=== PATIENT | female | born 1975 | race Caucasian/White ===

== ENCOUNTER → 2017-09-04 | Outpatient (REF) | payer OTHER ==
[2017-09-04 12:05] LABS: BASO # 0.1 10^3/uL (0.0-0.2); BASO % 0.9 % (0.0-1.0); EOS # 0.3 10^3/uL (0.0-0.50); EOS % 4.9 % (0.0-3.0); HEMATOCRIT 40.3 % (36.0-47.0); HEMOGLOBIN 13.3 g/dl (12.0-16.0); IMMATURE GRANULOCYTE % 0.4 % (0-0); LYMPH # 2.1 10^3/uL (1.5-4.5); LYMPH % 39.1 % (24.0-44.0); MEAN CORPUSCULAR HEMOGLOBIN 30.2 pg (27.0-33.0); MEAN CORPUSCULAR VOLUME 91.6 fl (80.0-96.0); MONO # 0.4 10^3/uL (0.0-0.8); MONO % 6.6 % (0.0-5.0); NEUTROPHILS # 2.6 10^3/uL (1.8-7.7); NEUTROPHILS % 48.1 % (36.0-66.0); PLATELET COUNT, AUTOMATED 194 10^3/uL (150-450); WHITE BLOOD COUNT 5.3 10^3/uL (4.0-10.0)
[2017-09-04 12:25] LABS: TOTAL 25(OH) VITAMIN D 15.5 NG/ML (30.0-100.0)
[2017-09-04 12:31] LABS: ALBUMIN 3.8 GM/DL (3.2-5.2); ALBUMIN/GLOBULIN RATIO 1.06 (1.00-1.93); ALKALINE PHOSPHATASE 47 U/L (45-117); ALT/SGPT 17 U/L (12-78); ANION GAP 7 MEQ/L (8-16); AST/SGOT 14 U/L (7-37); BILIRUBIN,TOTAL 0.4 MG/DL (0.2-1.0); BLOOD UREA NITROGEN 15 MG/DL (7-18); CALCIUM LEVEL 8.6 MG/DL (8.5-10.1); CARBON DIOXIDE LEVEL 29 MEQ/L (21-32); CHLORIDE LEVEL 105 MEQ/L (98-107); CHOLESTEROL LEVEL 214 MG/DL (<200); CHOLESTEROL RISK RATIO 3.194 (<5); CREATININE FOR GFR 0.62 MG/DL (0.55-1.02); GLOMERULAR FILTRATION RATE > 60.0 (>58); GLUCOSE, FASTING 86 MG/DL (70-105); HDL CHOLESTEROL 67 MG/DL (>40); LDL CHOLESTEROL 134.4 MG/DL (<100); NON-HDL-C 147 MG/DL; POTASSIUM SERUM 4.1 MEQ/L (3.5-5.1); SODIUM LEVEL 141 MEQ/L (136-145); THYROID STIMULATING HORMONE 0.932 uIU/ML (0.358-3.740); TOTAL PROTEIN 7.4 GM/DL (6.4-8.2); TRIGLYCERIDES LEVEL 63 MG/DL (<150)
== END ==
LOC: M LABDRAW1 10:29
DX: Z00.00 Encounter for general adult medical examination without abnormal findings (principal); E55.9 Vitamin D deficiency, unspecified
CPT/HCPCS: 84443

== ENCOUNTER → 2018-02-13 | Outpatient (CLI) | payer OTHER ==
[2018-02-13 13:30] LABS: HEMATOCRIT 42.7 % (36.0-47.0); HEMOGLOBIN 14.5 g/dl (12.0-15.5); MEAN CORPUSCULAR HEMOGLOBIN 31.5 pg (27.0-33.0); MEAN CORPUSCULAR VOLUME 92.8 fl (80.0-96.0); PLATELET COUNT, AUTOMATED 164 10^3/uL (150-450); RED CELL DISTRIBUTION WIDTH 12.5 % (11.5-14.5); WHITE BLOOD COUNT 8.4 10^3/uL (4.0-10.0)
[2018-02-13 14:02] LABS: FREE T4 0.96 NG/DL (0.76-1.46); THYROID STIMULATING HORMONE 0.888 uIU/ML (0.358-3.740)
== END ==
LOC: M SMT 09:11
DX: N92.0 Excessive and frequent menstruation with regular cycle (principal)
CPT/HCPCS: 84443

== ENCOUNTER → 2018-02-13 | Outpatient (REF) | payer OTHER ==
[2018-02-17 14:16] LABS: HPV HYBRID CAPTURE II Positive (Negative)
== END ==
LOC: M LAB REF 17:57
DX: Z12.4 Encounter for screening for malignant neoplasm of cervix (principal)

== ENCOUNTER → 2018-02-20 | Outpatient (CLI) | payer OTHER | LOC: M RAD 08:40 | DX: N92.0 Excessive and frequent menstruation with regular cycle (principal); R93.8 Abnormal findings on diagnostic imaging of other specified body structures | CPT/HCPCS: 76856 ==

== ENCOUNTER → 2018-03-19 | Outpatient (REF) | payer OTHER | LOC: M LAB REF 18:44 | DX: N92.0 Excessive and frequent menstruation with regular cycle (principal) ==

== ENCOUNTER 2018-04-29 09:52 | Day surgery (SDC) | payer OTHER ==
[~2018-04-29 09:52] MED LIST: GLYCOPYRROLATE INJ 0.2 MG/ML 2 ML VIAL As Ordered; HYDROmorphone HCL 2 MG/ML 1ML VIAL (J1170) As Ordered; KETOROLAC 60 MG/2 ML VIAL (J1885) As Ordered; LIDOCAINE 1% MDV 20ML VIAL SQ; LIDOCAINE 2% INJ 100 MG/5 ML SDV (FOR ANES.) As Ordered; MIDAZOLAM INJ 2 MG/2 ML VIAL (J2250) As Ordered; NEOSTIGMINE 10 MG/10 ML VIAL (J2710) As Ordered; ONDANSETRON 4MG/2ML VIAL (J2405) As Ordered; PROPOFOL 200 MG/20 ML VIAL As Ordered; ROCURONIUM BROMIDE 50 MG/5 ML VIAL As Ordered; dexameTHASONE 4 MG/ML 1ML VIAL (J1100) As Ordered; fentaNYL 100 MCG/2 ML INJECTION (J3010) As Ordered
[2018-04-29 10:19] LABS: HEMATOCRIT 42.6 % (36.0-47.0); HEMOGLOBIN 14.2 g/dl (12.0-15.5); MEAN CORPUSCULAR HGB CONC 33.3 g/dl (32.0-36.5); PLATELET COUNT, AUTOMATED 181 10^3/uL (150-450); RED BLOOD COUNT 4.58 10^6/uL (4.00-5.40); RED CELL DISTRIBUTION WIDTH 12.4 % (11.5-14.5); WHITE BLOOD COUNT 5.3 10^3/uL (4.0-10.0)
[2018-04-29 10:27] LABS: CONTROL LINE HCG INT CTR LINE PRESENT; HCG, SERUM QUALITATIVE NEGATIVE (NEGATIVE)
[2018-04-29] MEDS: LR 1,000 ML IV ×2 (10:35→14:00)
[2018-04-29] MEDS ORDERED: PHENYLephrine HCL 500 MCG/5 ML (100MCG/ML) SYRINGE (J2370) As Ordered (11:47)
[2018-04-29] MEDS ORDERED: ePHEDrine SULFATE 25 MG/5 ML(5MG/ML) SYRINGE As Ordered (11:52)
[2018-04-29] MEDS ORDERED: ROCURONIUM BROMIDE 50 MG/5 ML VIAL As Ordered (12:02)
[2018-04-29] MEDS: BUPIVACAINE HCL 0.25% 30 ML VIAL As Ordered (12:45)
[2018-04-29] MEDS ORDERED: zolPIDEM TARTRATE 5 MG TAB PO (14:00)
[2018-04-29] MEDS ORDERED: MORPHINE 4 MG/ML 1ML VIAL/SYRINGE (J2270) IV (14:00)
[2018-04-29] MEDS ORDERED: PERCOCET 5MG/325MG TAB PO (14:00)
[2018-04-29] MEDS ORDERED: fentaNYL 100 MCG/2 ML INJECTION (J3010) IV (14:00)
[2018-04-29] MEDS ORDERED: ONDANSETRON 4MG/2ML VIAL (J2405) IV (14:00)
[2018-04-29] MEDS: PROMETHAZINE INJ 25 MG/ML VIAL (J2550) IV (15:36)
[2018-04-29] MEDS: KETOROLAC 30 MG/ML VIAL (J1885) IV ×2 (17:26→22:57)
[2018-04-29] MEDS: PERCOCET 5MG/325MG TAB PO (21:34)
[2018-04-30] MEDS: PERCOCET 5MG/325MG TAB PO (03:23)
[2018-04-30] MEDS: KETOROLAC 30 MG/ML VIAL (J1885) IV (04:51)
[2018-04-30 07:50] LABS: HEMATOCRIT 33.9 % (36.0-47.0); MEAN CORPUSCULAR HGB CONC 33.3 g/dl (32.0-36.5); MEAN CORPUSCULAR VOLUME 93.1 fl (80.0-96.0); PLATELET COUNT, AUTOMATED 155 10^3/uL (150-450); RED BLOOD COUNT 3.64 10^6/uL (4.00-5.40); RED CELL DISTRIBUTION WIDTH 12.4 % (11.5-14.5); WHITE BLOOD COUNT 9.9 10^3/uL (4.0-10.0)
[2018-04-30 07:58] LABS: HEMOGLOBIN 11.3 g/dl (12.0-15.5)
== END 2018-04-30 08:55 | disposition home or self-care (01) ==
LOC: M SDC 09:52 → M PED 15:15
DX: N93.9 Abnormal uterine and vaginal bleeding, unspecified (principal); D25.9 Leiomyoma of uterus, unspecified; K58.9 Irritable bowel syndrome, unspecified; L40.9 Psoriasis, unspecified; J30.9 Allergic rhinitis, unspecified; Z88.0 Allergy status to penicillin
CPT/HCPCS: 58571

== ENCOUNTER → 2019-04-20 | Outpatient (REF) | payer OTHER ==
[~2019-04-20] MED LIST changes: -GLYCOPYRROLATE INJ 0.2 MG/ML 2 ML VIAL As Ordered; -HYDROmorphone HCL 2 MG/ML 1ML VIAL (J1170) As Ordered; -KETOROLAC 60 MG/2 ML VIAL (J1885) As Ordered; -LIDOCAINE 1% MDV 20ML VIAL SQ; -LIDOCAINE 2% INJ 100 MG/5 ML SDV (FOR ANES.) As Ordered; -MIDAZOLAM INJ 2 MG/2 ML VIAL (J2250) As Ordered; -NEOSTIGMINE 10 MG/10 ML VIAL (J2710) As Ordered; +NEXI40CA PO; -ONDANSETRON 4MG/2ML VIAL (J2405) As Ordered; +PERCOCET PO; -PROPOFOL 200 MG/20 ML VIAL As Ordered; -ROCURONIUM BROMIDE 50 MG/5 ML VIAL As Ordered; +VITA100066 PO; -dexameTHASONE 4 MG/ML 1ML VIAL (J1100) As Ordered; -fentaNYL 100 MCG/2 ML INJECTION (J3010) As Ordered
== END ==
LOC: M SFHCPLAZ 19:37
PROVIDERS: ATTEND Dermatology
DX: D22.39 Melanocytic nevi of other parts of face (principal)

== ENCOUNTER → 2020-03-19 | Outpatient (CLI) | payer OTHER ==
[~2020-03-19] MED LIST changes: +FAMO1TAB11 PO; +MELO15TA28 PO
== END ==
LOC: M LABSMTC 09:31
PROVIDERS: ATTEND Anesthesiology
DX: Z03.818 Encounter for observation for suspected exposure to other biological agents ruled out (principal); Z11.59 Encounter for screening for other viral diseases

== ENCOUNTER → 2020-09-07 | Outpatient (CLI) | payer OTHER ==
[2020-09-07 09:55] LABS: ALBUMIN 3.9 GM/DL (3.2-5.2); ALT/SGPT 16 U/L (12-78); BILIRUBIN,TOTAL 0.4 MG/DL (0.2-1.0); BLOOD UREA NITROGEN 12 MG/DL (7-18); CARBON DIOXIDE LEVEL 25 MEQ/L (21-32); CHLORIDE LEVEL 107 MEQ/L (98-107); CHOLESTEROL LEVEL 238 MG/DL (<200); CHOLESTEROL RISK RATIO 3.901 (<5); CREATININE FOR GFR 0.74 MG/DL (0.55-1.30); FREE T4 0.95 NG/DL (0.76-1.46); GLOMERULAR FILTRATION RATE > 60.0 (>58); GLUCOSE, FASTING 88 MG/DL (70-100); HDL CHOLESTEROL 61 MG/DL (>40); LDL CHOLESTEROL 167 MG/DL (<100); NON-HDL-C 177 MG/DL; SODIUM LEVEL 136 MEQ/L (136-145); THYROID STIMULATING HORMONE 0.994 uIU/ML (0.358-3.740); TOTAL PROTEIN 7.3 GM/DL (6.4-8.2); TRIGLYCERIDES LEVEL 52 MG/DL (<150)
== END ==
LOC: M LAB 08:47
PROVIDERS: ATTEND Nurse Practitioner Family
DX: Z00.00 Encounter for general adult medical examination without abnormal findings (principal)

== ENCOUNTER → 2020-10-07 | Outpatient (CLI) | payer OTHER | LOC: M LABSMTC 10:11 | PROVIDERS: ATTEND Anesthesiology | DX: Z01.812 Encounter for preprocedural laboratory examination (principal); Z20.822 Contact with and (suspected) exposure to COVID-19 ==

== ENCOUNTER 2020-10-12 06:16 | Observation (INO) | payer OTHER ==
[~2020-10-12] VITALS: Ht 157.5 cm; Wt 72.0 kg
[2020-10-12] VITALS (7 sets, daily range): BP systolic 109–122; BP diastolic 66–78
[~2020-10-12 06:16] MED LIST changes: +HEPARIN SOD (PORCINE) 5000UNITS/ML 1ML VIAL/SYRINGE SQ ONE; +LR 1,000 ML IV ONE; +ceFAZolin SOD 1 GM in D5W MINI-BAG PLUS 50 ML IV ONE
--- OUTSIDE RECORDS SUMMARY | 2020-10-12 06:21 | CCD | Continuity of Care Document ---
Author Author Lindsay CONTE [facility] Organization Unknown Address [address] [address] Phone [phone] Care Team Providers Care Director Pharmacovigilance Name Role Phone Katiana Gastro - Gastroenterology AUTM Rubén Gutiérrez MD AUTM [phone] Esme Barrientos MD AUTM Tammi Fair MD AUTM [phone] Zunilda Robin DO AUTM [phone] Problems Active Problems Provider Date Atopic dermatitis Leora Polk M.D. Onset: 01/26/20 11 Social History Type Date Description Comments Sex Unknown Tobacco Use Start: Unknown Never Smoked Cigarettes Tobacco Use Start: Unknown Never Used Smokeless Tobacco ETOH Use Occasionally consumes alcohol Tobacco Use Start: Unknown Patient has never smoked Recreational Drug Use Denies Drug Use Smoking Status Reviewed: 08/21/20 Patient has never smoked Exercise Type/Frequency Exercises regularly Tattoo/Piercing Pierced ears Tattoo/Piercing Tattoo Sun Exposure Moderate amount of sun exposure Sun Exposure Uses sunscreen Seat Belt/Car Seat Always uses seat belt Bike Helmet Always Smoke Alarms Yes Smoke Alarms Carbon Monoxide Detector: Yes Allergies, Adverse Reactions, Alerts Active Allergies Reaction Severity Comments Date NKDA 09/22/2008 Environmental 11/12/2017 Medications Active Medications SIG Qnty Indications Ordering Provide r Date Cyclobenzaprine HCL 10mg Tablets 1/2 to 1 by mouth three times a day as needed 30tabs M54.2 Pranav Conte FNP 08/21/2020 Famotidine 20mg Tablets 1 by mouth twice a day 180tabs Nery Conte FNP 12/01/2019 Immunizations CPT Code Status Date Vaccine Lot # [id number] Given 08/18/2017 Boostrix (Tdap) Tetnus, Diphtheria Toxoids & Acellular Pertussis TB2R2 13953 Given 09/22/2008 MMR [id number] Vital Signs Date Vital Result Comment 08/21/2020 8:32am BP Systolic 127 mmHg BP Diastolic 78 mmHg Heart Rate 97 /min Body Temperature 98.1 F Respiratory Rate 16 /min Height 61.75 inches 5'1.75" Weight 162.38 lb O2 % BldC Oximetry 98 % Peak Expiratory Flow Rate 344 Estimated Peak Flow Rate [place] Body Weight 105 lb BMI (Body Mass Index) 29.9 kg/m2 04/14/2020 12:02pm BP Systolic 142 mmHg BP Diastolic 92 mmHg BP Systolic Recheck 126 mmHg BP Diastolic Recheck 84 mmHg Heart Rate 79 /min Body Temperature 98.8 F Respiratory Rate 16 /min Height 61.75 inches 5'1.75" Weight 152.75 lb O2 % BldC Oximetry 98 % Peak Expiratory Flow Rate 346 Estimated Peak Flow Rate [place] Body Weight 105 lb BMI (Body Mass Index) 28.2 kg/m2 Results Description No Information Available Procedures Date Code Description Status 09/02/2019 [id number] Mammogram Completed Medical Devices Description No Information Available Encounters Type Date Location Provider Dx Diagnosis Office Visit 04/14/2020 11:45a Main Office Nery Conte FNP R14.0 Abdominal distension (gaseous) M54.2 Cervicalgia Assessments Date Code Description Provider 08/21/2020 Z00.00 Encounter for genera l adult medical examination without abnormal findings Nery Conte FNP 08/21/2020 R14.0 Abdominal distension (gaseous) P Nery young FNP 08/21/2020 K21.9 Gastro-esophageal reflux disease without esophagitis Nery Conte FNP 08/21/2020 M54.2 Cervicalgia Nery Conte FNP 04/14/2020 R14.0 Abdominal distension (gaseous) P Nery young FNP 04/14/2020 M54.2 Cervicalgia Nery Conte FNP Plan of Treatment 08/21/2020 - Nery Conte FNP* Z00.00 Encounter for general adult medical examination without abnormal findings* New Labs:* Comprehensive Metabolic Profil, Scheduled: 08/21/20 * Lipid Panel, Scheduled: 08/21/20 * TSH And T4 Free (Terry), Scheduled: 08/21/20 * Follow up:* 6 months * R14.0 Abdominal distension (gaseous)* Comments:* refer to Dr. Hallman * K21.9 Gastro-esophageal reflux disease without esophagitis * M54.2 Cervicalgia* New Medication:* Cyclobenzaprine HCL 10 mg - 1/2 to 1 by mouth three times a day as needed Functional Status Functional Condition Comment Date Status Glasses reading Active Independent with all ADL's Activ e Independent with all IADL's Acti ve Mental Status Mental Condition Comment Date Status None Active Referrals Refer to Reason for Referral Status Appt Date [facility] refer for breast re duction per recommendation of spinal specialist Closed [address] [place] [address] [phone] Tammi Fair MD Refer for question of hormone imbalance causin g GI sx Closed [facility] [address] [address] [phone] Zunilda Robin, refer for breast reduction p er recommendation of spinal specialist Closed 05/03/2020 [facility] Plastic Surgery [address] [place] [address] [phone]
--- OUTSIDE RECORDS SUMMARY | 2020-10-12 06:21 | CCD | Continuity of Care Document ---
Author Author Lindsay CONTE Organization Unknown Address [address] [place] [address] Phone [phone] Care Team Providers Care Steak Sauce Maker Name Role Phone Katiana Gastro - Gastroenterology AUTM Rubén Gutiérrez MD AUTM [phone] Esme Barrientos MD AUTM Tammi Fair MD AUTM [phone] Zunilda Robin DO AUTM [phone] [facility] AUTM [phone] Problems Active Problems Provider Date Atopic dermatitis [...] by mouth twice a day 180tabs Nery Conte, [facility] 12/01/2019 Immunizations CPT Code Status Date Vaccine Lot # [id number] Given 08/18/2017 Boostrix (Tdap) Tetnus, Diphtheria Toxoids & Acellular Pertussis TB2R2 [id number] Given 09/22/2008 MMR [id number] Vital Signs Date Vital Result Comment 08/21/2020 8:32am BP Systolic 127 mmHg BP Diastolic 78 mmHg Heart Rate 97 /min Body Temperature 98.1 F Respiratory Rate 16 /min Height 61.75 inches 5'1.75" Weight 162.38 lb O2 % BldC Oximetry 98 % Peak Expiratory Flow Rate 344 Estimated Peak Flow Rate [place] Body Weight 105 lb BMI (Body Mass [...] Flow Rate 346 Estimated Peak Flow Rate [place] Body Weight 105 lb BMI (Body Mass Index) 28.2 kg/m2 Results Test Acquired Date Facility Test Result H/L Range Note Comprehensive Metabolic Profil 09/07/2020 [phone] Glucose, Fasting 88 mg/dL Normal 70-100 Blood Urea Nitrogen 12 mg/dL Normal 7-18 Creatinine For GFR 0.74 mg/dL Normal 0.55-1.30 Glomerular Filtration Rate > 60.0 Normal >58 1 Sodium Level 136 mEq/L Normal 136-145 Potassium Serum 5.0 mEq/L Normal 3.5-5.1 Chloride Level 107 mEq/L Normal 98-107 Carbon Dioxide Level 25 mEq/L Normal 21-32 Anion Gap 4 mEq/L Low 8-16 Calcium Level 9.0 mg/dL Normal 8.5-10.1 Ast/Sgot 15 U/L Normal 7-37 Alt/SGPT 16 U/L Normal 12-78 Alkaline Phosphatase 50 U/L Normal 45-117 Bilirubin,Total 0.4 mg/dL Normal 0.2-1.0 Total Protein 7.3 GM/DL Normal 6.4-8.2 Albumin 3.9 GM/DL Normal 3.2-5.2 Albumin/Globulin Ratio 1.1 Low 1.2-2.2 Lipid Panel 09/07/2020 [facility] nter [phone] Triglycerides Level 52 mg/dL Normal <150 Cholesterol Level 238 mg/dL High <200 HDL Cholesterol 61 mg/dL Normal >40 LDL Cholesterol 167 mg/dL High <100 Non-HDL-C 177 mg/dL Normal Cholesterol Risk Ratio 3.901 Normal <5 FT4&TSH Panel 09/07/2020 [facility] nter [phone] Thyroid Stimulating Hormone 0.994 uIU/ML Normal 0. 358-3.740 Free T4 0.95 ng/dL Normal 0.76-1.46 1 Units are mL/min/1.73 m2 Chronic Kidney Disease Staging per NKF: Stage I & II GFR >=60 Normal to Mildly Decreased Stage III GFR 30-59 Moderately Decreased Stage IV GFR 15-29 Severely Decreased Stage V GFR <15 Very Little GFR Left ESRD GFR <[address] TEAM [employer]BER Procedures Date Code Description Status 09/02/2019 [id number] Mammogram Completed Medical Devices Description No Information Available Encounters Type Date Location Provider Dx Diagnosis Office Visit 08/21/2020 8:15a Main Office Nery Conte FNP Z00.0 0 Encntr for general adult medical exam w/o abnormal findings R14.0 Abdominal distension (gaseou s) K21.9 Gastro-esophageal reflux dis ease without esophagitis M54.2 Cervicalgia Office Visit 04/14/2020 11:45a Main Office Nery Conte FNP R14.0 Abdominal distension (gaseous) M54.2 Cervicalgia Assessments Date Code Description Provider 08/21/2020 Z00.00 Encounter for genera l adult medical examination without abnormal findings Nery Conte FNP 08/21/2020 R14.0 Abdominal distension (gaseous) Nery Cedeño FNP 08/21/2020 K21.9 Gastro-esophageal reflux disease without esophagitis Nery Conte FNP 08/21/2020 M54.2 Cervicalgia Nery Conte FNP 04/14/2020 R14.0 Abdominal distension (gaseous) Nery Cedeño FNP 04/14/2020 M54.2 Cervicalgia Nery Conte FNP Plan of Treatment Future Appointment(s):* 02/21/2021 8:15 am - Nery Conte FNP at Main Office 08/21/2020 - Nery Conte FNP* Z00.00 Encounter for general adult medical examination without abnormal findings* Comments:* Health maintenance up to date. Overall doing well. RANDAL/PHQ 9/CAGE questionnaire reviewed. Discussed healthy lifestyle choices. * Follow up:* 6 months * R14.0 Abdominal distension (gaseous)* Comments:* refer to Dr. Hallman * Referral:* [facility] * K21.9 Gastro-esophageal reflux disease without esophagitis* Comments:* controlled on famotidine * M54.2 Cervicalgia* New Medication:* Cyclobenzaprine HCL 10 mg - 1/2 to 1 by mouth three times a day as needed * Comments:* add muscle relaxer as needed Functional Status Functional Condition Comment Date Status Glasses reading Active Independent with all ADL's Activ e Independent with all IADL's Acti ve Mental Status Mental Condition Comment Date Status None Active Referrals Refer to Reason for Referral Status Appt Date [facility] Concern [place] [address] [place] [address] [phone] [facility] refer for breast re duction per recommendation of spinal specialist Closed [address] [place] [address] [phone] Tammi Fair MD Refer for question of hormone imbalance causin g GI sx Closed [facility] [address] [facility] [address] [phone] Zunilda Robin DO refer for breast reduction p er recommendation of spinal specialist Closed 05/03/2020 [facility] Plastic Surgery [address] [place] [address] [phone]
--- OUTSIDE RECORDS SUMMARY | 2020-10-12 06:21 | CCD | Continuity of Care Document ---
Author Author Lindsay CONTE [facility] Organization Unknown Address [address] [place] [address] Phone [phone] Care Team Providers Care Medical Coding Specialist Name Role Phone Katiana Gastro - Gastroenterology AUTM Rubén Gutiérrez MD AUTM [phone] Esme Barrientos MD AUTM [phone] Tammi Fair MD AUTM [phone] Zunilda Robin DO AUTM [phone] [facility] AUTM [phone] Problems Active Problems Provider Date Gastroesophageal reflux disease Nery Conte FNP Onset: 10/02/2020 Social History Type Date Description Comments Sex Unknown Tobacco Use Start: Unknown Never Smoked Cigarettes Tobacco Use Start: Unknown Never Used Smokeless Tobacco ETOH Use Occasionally consumes alcohol Tobacco Use Start: Unknown Patient has never smoked Recreational Drug Use Denies Drug Use Smoking Status Reviewed: 10/02/20 Patient has never smoked Exercise Type/Frequency Exercises [...] 08/21/2020 Famotidine 20mg Tablets 1 by mouth once a day 180tabs JacksonNery kennedy, [facility] 12/01/2019 Immunizations CPT Code Status Date Vaccine Lot # [id number] Given 08/18/2017 Boostrix (Tdap) Tetnus, Diphtheria Toxoids & Acellular Pertussis TB2R2 57519 Given 09/22/2008 MMR [id number] Vital Signs Date Vital Result Comment 10/02/2020 4:13pm BP Systolic 119 mmHg BP Diastolic 80 mmHg Heart Rate 77 /min Body Temperature 97.7 F Respiratory Rate 16 /min Height 61.75 inches 5'1.75" Weight 160.25 lb O2 % BldC Oximetry 99 % Peak Expiratory Flow Rate 344 Estimated Peak Flow Rate [place] Body Weight 105 lb BMI (Body Mass Index) 29.5 kg/m2 08/21/2020 8:32am BP Systolic 127 mmHg BP Diastolic 78 mmHg Heart Rate 97 /min Body Temperature 98.1 F Respiratory Rate 16 /min Height 61.75 inches 5'1.75" Weight 162.38 lb O2 % BldC Oximetry 98 % Peak Expiratory Flow Rate 344 Estimated Peak Flow Rate [place] Body Weight 105 lb BMI (Body Mass Index) 29.9 kg/m2 Results Test Acquired Date Facility Test Result H/L Range Note CBC With Differential 10/04/[address] [facility] [address] [place] [address] [phone] WBC 5.8 x10E3/uL 3.4-10.8 1, 2 RBC 4.51 x10E6/uL 3.77-5.28 3 Hemoglobin 13.9 g/dL 11.1-15.9 4 Hematocrit 40.8 % 34.0-46.6 5 MCV 91 fL 79-97 6 MCH 30.8 pg 26.6-33.0 7 MCHC 34.1 g/dL 31.5-35.7 8 RDW 12.1 % 11.7-15.4 9 Platelets 164 x10E3/uL 150-450 10 Neutrophils 50 % Not Estab. 11 Lymphs 36 % Not Estab. 12 Monocytes 9 % Not Estab. 13 Eos 4 % Not Estab. 14 Basos 1 % Not Estab. 15 Immature Cells TNP 16 Neutrophils (Absolute) 3.0 x10E3/uL 1.4-7.0 17 Lymphs (Absolute) 2.1 x10E3/uL 0.7-3.1 18 Monocytes(Absolute) 0.5 x10E3/uL 0.1-0.9 19 Eos (Absolute) 0.2 x10E3/uL 0.0-0.4 20 Baso (Absolute) 0.0 x10E3/uL 0.0-0.2 21 Immature Granulocytes 0 % Not Estab. 22 Immature Grans (Abs) 0.0 x10E3/uL 0.0-0.1 23 NRBC TNP 24 Hematology Comments: TNP 25 Urine Culture 10/04/[address] [facility] [address] [place] [address] [phone] Urine Culture, Routine Final report 26 Result 1 No growth 27 Laboratory test finding 10/04/[address] [facility] [address] [place] [address] [phone] Lor Ling CMP14 Default See Comment: 28 Metabolic Panel (14), Comprehensive 10/04/2020 [facility] [address] [place], [place] [address] [phone] Glucose 80 mg/dL 65-99 29 BUN 9 mg/dL 6-24 30 Creatinine 0.77 mg/dL 0.57-1.00 31 eGFR If NonAfricn Am 95 mL/min/1.73 >59 32 eGFR If Africn Am 109 mL/min/1.73 >59 33 BUN/Creatinine Ratio 12 9-23 34 Sodium 137 mmol/L 134-144 35 Potassium 4.3 mmol/L 3.5-5.2 36 Chloride 102 mmol/L 96-106 37 Carbon Dioxide, Total 23 mmol/L 20-29 38 Calcium 9.3 mg/dL 8.7-10.2 39 Protein, Total 7.3 g/dL 6.0-8.5 40 Albumin 4.3 g/dL 3.8-4.8 41 Globulin, Total 3.0 g/dL 1.5-4.5 42 A/G Ratio 1.4 1.2-2.2 43 Bilirubin, Total 0.4 mg/dL 0.0-1.2 44 Alkaline Phosphatase 51 IU/L 39-117 45 Ast (Sgot) 15 IU/L 0-40 46 Alt (SGPT) 9 IU/L 0-32 47 Urinalysis, Routine With Micro On Pos 10/04/2020 [facility] [address] [place], [place] [address] [phone] Specific [place] 1.008 1.005-1.030 48 pH 7.5 5.0-7.5 49 Urine-Color Yellow Yellow 50 Appearance Clear Clear 51 WBC Esterase Negative Negative 52 Protein Negative Negative/Trace 53 Glucose Negative Negative 54 Ketones Negative Negative 55 Occult Blood Negative Negative 56 Bilirubin Negative Negative 57 Urobilinogen,Semi-Qn 0.2 mg/dL 0.2-1.0 58 Nitrite, Urine Negative Negative 59 Microscopic Examination See Comment: 60 Order 10/02/2020 [facility] [address] [place] [address] [phone] Electrocardiogram <pending> Comprehensive Metabolic Profil 09/07/2020 [facility] [phone] Glucose, Fasting 88 mg/dL Normal 70-100 Blood Urea Nitrogen 12 mg/dL Normal 7-18 Creatinine For GFR 0.74 mg/dL Normal 0.55-1.30 Glomerular Filtration Rate > 60.0 Normal >58 6 1 Sodium Level 136 mEq/L Normal 136-145 [...] Ratio 1.1 Low 1.2-2.2 Lipid Panel 09/07/2020 [facility] nter [phone] Triglycerides Level 52 mg/dL Normal <150 Cholesterol Level 238 mg/dL High <200 HDL Cholesterol 61 mg/dL Normal >40 LDL Cholesterol 167 mg/dL High <100 Non-HDL-C 177 mg/dL Normal Cholesterol Risk Ratio 3.901 Normal <5 FT4&TSH Panel 09/07/2020 [facility] nter [phone] Thyroid Stimulating Hormone 0.994 uIU/ML Normal 0. 358-3.740 Free T4 0.95 ng/dL Normal 0.76-1.46 1 A courtesy copy of this repo rt has been sent to [phone], the patient SRC:UC 2 Source of Specimen: UC 3 Source of Specimen: UC 4 Source of Specimen: UC 5 Source of Specimen: UC 6 Source of Specimen: UC 7 Source of Specimen: UC 8 Source of Specimen: UC 9 Source of Specimen: UC 10 Source of Specimen: UC 11 Source of Specimen: UC 12 Source of Specimen: UC 13 Source of Specimen: UC 14 Source of Specimen: UC 15 Source of Specimen: UC 16 Source of Specimen: UC 17 Source of Specimen: UC 18 Source of Specimen: UC 19 Source of Specimen: UC 20 Source of Specimen: UC 21 Source of Specimen: UC 22 Source of Specimen: UC 23 Source of Specimen: UC 24 Source of Specimen: UC 25 Source of Specimen: UC 26 Source of Specimen: UC 27 Source of Specimen: UC 28 Source of Specimen: UC A hand-written panel/profile was received from your office. In accordance with the [facility] Ambiguous Test Code Policy dated March 2003, we have completed your order by us ing the closest currently or formerly recognized AMA panel. We have assigned Comprehensive Metabolic Panel (14), Test Code #668347 to this request. If this is not the testing you wished to receive on this specimen, please contact the [facility] Client Inquiry/Technical Services Department to clarify the test order. We appreciate your business. 29 Source of Specimen: UC 30 Source of Specimen: UC 31 Source of Specimen: UC 32 Source of Specimen: UC 33 Source of Specimen: UC 34 Source of Specimen: UC 35 Source of Specimen: UC 36 Source of Specimen: UC 37 Source of Specimen: UC 38 Source of Specimen: UC 39 Source of Specimen: UC 40 Source of Specimen: UC 41 Source of Specimen: UC 42 Source of Specimen: UC 43 Source of Specimen: UC 44 Source of Specimen: UC 45 Source of Specimen: UC 46 Source of Specimen: UC 47 Source of Specimen: UC 48 Source of Specimen: UC 49 Source of Specimen: UC 50 Source of Specimen: UC 51 Source of Specimen: UC 52 Source of Specimen: UC 53 Source of Specimen: UC 54 Source of Specimen: UC 55 Source of Specimen: UC 56 Source of Specimen: UC 57 Source of Specimen: UC 58 Source of Specimen: UC 59 Source of Specimen: UC 60 Source of Specimen: UC Microscopic follows if indicated. 61 Units are mL/min/1.73 m2 Chronic Kidney Disease Staging per NKF: Stage I & II GFR >=60 Normal to Mildly Decreased Stage III GFR 30-59 Moderately Decreased Stage IV GFR 15-29 Severely Decreased Stage V GFR <15 Very Little GFR Left ESRD GFR <15 on [facility] Procedures Date Code Description Status 10/02/2020 [id number] EKG Interpretation & Report Comp leted 09/25/2020 [id number] Mammogram Completed Medical Devices Description No Information Available Encounters Type Date Location Provider Dx Diagnosis Office Visit 10/02/2020 4:00p Main Office Nery Conte FNP Z01.8 18 Encounter for other preprocedural examination K21.9 Gastro-esophageal reflux dis ease without esophagitis N62 Hypertrophy of breast Office Visit 08/21/2020 8:15a Main Office Nery Conte CHAIN MAK[employer] Z00.0 0 Encntr for general adult medical exam w/o abnormal findings R14.0 Abdominal distension (gaseou s) K21.9 Gastro-esophageal reflux dis ease without esophagitis M54.2 Cervicalgia Office Visit 04/14/2020 11:45a Main Office Nery Conte, [employer] R14.0 Abdominal distension (gaseous) M54.2 Cervicalgia Assessments Date Code Description Provider 10/02/2020 Z01.818 Encounter for other preprocedura l examination Nery Conte [employer] 10/02/2020 K21.9 Gastro-esophageal reflux disease without esophagitis Nery Conte, CH[employer] MA[employer] 10/02/2020 N62 Hypertrophy of breast Nery Conte, [employer] 08/21/2020 Z00.00 Encounter for genera l adult medical examination without abnormal findings Nery Conte, CHAIN MAK[employer] 08/21/2020 R14.0 Abdominal distension (gaseous) P Nery young, CHAIN MAKER HAND 08/21/2020 K21.9 Gastro-esophageal reflux disease without esophagitis Nery Conte CHAIN [employer] 08/21/2020 M54.2 Cervicalgia PleNery kennedy FNP 04/14/2020 R14.0 Abdominal distension (gaseous) P Nery young FNP 04/14/2020 M54.2 Cervicalgia Nery Conte FNP Plan of Treatment Future Appointment(s):* 02/21/2021 8:15 am - Nery Conte FNP at Main Office 10/02/2020 - Nery Conte FNP* Z01.818 Encounter for other preprocedural examination* Comments:* EKG done shows NSR with no acute changesPatient is medically optimized for the planned procedure pending lab results 10/06/20 - labs reviewed and are within normal limits, Patient is medically optimized for the planned procedure. * K21.9 Gastro-esophageal reflux disease without esophagitis* Comments:* controlled on famotidine * N62 Hypertrophy of breast Functional Status Functional Condition Comment Date Status Glasses reading Active Independent with all ADL's Activ e Independent with all IADL's Acti ve Mental Status Mental Condition Comment Date Status None Active Referrals Refer to Dr Reason for Referral Status Appt Date [facility] Concern for food allergies Schedule d 10/25/[address] [place] [address] [phone] [facility] refer for breast re duction per recommendation of spinal specialist Closed [address] [place] [address] [phone] Tammi Fair MD Refer for question of hormone imbalance causin g GI sx Closed [facility] [address] [facility] [address] [phone] Zunilda Robin, refer for breast reduction p er recommendation of spinal specialist Closed 05/03/2020 [facility] Plastic Surgery [address] [place] [address] [phone]
--- OUTSIDE RECORDS SUMMARY | 2020-10-12 06:21 | CCD | Continuity of Care Document ---
Author Author Lindsay CONTE Organization Unknown Address [address] [address] Phone [phone] Care Team Providers Care Manager Managed Care Name Role Phone Katiana Gastro - Gastroenterology AUTM Rubén Gutiérrez MD AUTM [phone] Esme Barrientos MD AUTM Tammi Fair MD AUTM [phone] Zunilda Robin DO AUTM [phone] [facility] AUTM [phone] Problems Active Problems Provider Date Atopic dermatitis [...] CPT Code Status Date Vaccine Lot # [id number] Given 08/18/2017 Boostrix (Tdap) Tetnus, Diphtheria Toxoids & Acellular Pertussis TB2R2 [id number] Given 09/22/2008 MMR [id number] Vital Signs Date Vital Result Comment 08/21/2020 8:32am BP Systolic 127 mmHg BP Diastolic 78 mmHg Heart Rate 97 /min Body Temperature 98.1 F Respiratory Rate 16 /min Height 61.75 inches 5'1.75" Weight 162.38 lb O2 % BldC Oximetry 98 % Peak Expiratory Flow Rate 344 Estimated Peak Flow Rate [place] Body Weight 105 lb BMI (Body Mass [...] Flow Rate 346 Estimated Peak Flow Rate [place] Body Weight 105 lb BMI (Body Mass Index) 28.2 kg/m2 Results Description No Information Available Procedures Date Code Description Status 09/02/2019 [id number] Mammogram Completed Medical Devices Description No Information [...] FNP 04/14/2020 R14.0 Abdominal distension (gaseous) P hectorNery FNP 04/14/2020 M54.2 Cervicalgia Nery Conte FNP Plan of Treatment Future Appointment(s):* 02/21/2021 8:15 am - Nery Conte FNP at Main Office 08/21/2020 - Nery Conte FNP* Z00.00 Encounter for general adult medical examination without abnormal findings* New Labs:* Comprehensive Metabolic Profil, Scheduled: 08/21/20 * Lipid Panel, Scheduled: 08/21/20 * TSH And T4 Free (Terry), Scheduled: 08/21/20 * Comments:* Health maintenance up to date. Overall [...] And Allergy Concern for food allergies [place] [address] [place] [address] [phone] [facility] refer for breast re duction per recommendation of spinal specialist Closed [address] [place] [address] [phone] Tammi Fair MD Refer for question of hormone imbalance margothin g GI sx Closed [facility] [address] [place] [address] [phone] Zunilda Robin, refer for breast reduction p er recommendation of spinal specialist Closed 05/03/2020 [facility] Plastic Surgery [address] [place] [address] [phone]
--- OUTSIDE RECORDS SUMMARY | 2020-10-12 06:21 | CCD | Continuity of Care Document ---
Author Author Lindsay CONTE [facility] Organization Unknown Address [address] [place] [address] Phone [phone] Care Team Providers Care Office Machine Installer Name Role Phone Katiana Gastro - Gastroenterology AUTM [phone] Rubén Gutiérrez MD AUTM [phone] Esme Barrientos MD AUTM [phone] Tammi Fair MD AUTM [phone] Zunilda Robin DO AUTM [phone] [facility] Immunology AUTM [phone] Problems Active Problems Provider Date Gastroesophageal reflux [...] mouth once a day 180tabs JacksonNery kennedy, FISHER PURSE SEINE 12/01/2019 Immunizations CPT Code Status Date Vaccine Lot # [id number] Given 08/18/2017 Boostrix (Tdap) Tetnus, Diphtheria Toxoids & Acellular Pertussis TB2R2 03530 Given 09/22/2008 MMR [id number] Vital Signs Date Vital Result Comment 10/02/2020 4:13pm BP Systolic 119 mmHg BP Diastolic 80 mmHg Heart Rate 77 /min Body Temperature 97.7 F Respiratory Rate 16 /min Height 61.75 inches 5'1.75" Weight 160.25 lb O2 % BldC Oximetry 99 % Peak Expiratory Flow Rate 344 Estimated Peak Flow Rate [place] Body Weight 105 lb BMI (Body Mass Index) 29.5 kg/m2 08/21/2020 8:32am BP Systolic 127 mmHg BP Diastolic 78 mmHg Heart Rate 97 /min Body Temperature 98.1 F Respiratory Rate 16 /min Height 61.75 inches 5'1.75" Weight 162.38 lb O2 % BldC Oximetry 98 % Peak Expiratory Flow Rate 344 Estimated Peak Flow Rate [place] Body Weight 105 lb BMI (Body Mass Index) 29.9 kg/m2 Results Test Acquired Date Facility Test Result H/L Range Note Order 10/02/2020 [facility] [address] [place], [place] [address] [phone] Electrocardiogram <pending> Comprehensive Metabolic Profil 09/07/2020 [facility] [phone] Glucose, Fasting 88 mg/dL Normal 70-100 Blood [...] Ratio 1.1 Low 1.2-2.2 Lipid Panel 09/07/2020 [facility] nter [phone] Triglycerides Level 52 mg/dL Normal <150 Cholesterol Level 238 mg/dL High <200 HDL Cholesterol 61 mg/dL Normal >40 LDL Cholesterol 167 mg/dL High <100 Non-HDL-C 177 mg/dL Normal Cholesterol Risk Ratio 3.901 Normal <5 FT4&TSH Panel 09/07/2020 [facility] nter [phone] Thyroid Stimulating Hormone 0.994 uIU/ML Normal 0. 358-3.740 Free T4 0.95 ng/dL Normal 0.76-1.46 1 Units are mL/min/1.73 m2 Chronic Kidney Disease Staging per NKF: Stage I & II GFR >=60 Normal to Mildly Decreased Stage III GFR 30-59 Moderately Decreased Stage IV GFR 15-29 Severely Decreased Stage V GFR <15 Very Little GFR Left ESRD GFR <15 on UROGYNECOLOGY PHYSICIAN Procedures Date Code Description Status 10/02/2020 31311 EKG Interpretation & Report Comp leted 09/25/2020 [id number] Mammogram Completed Medical Devices Description No Information [...] for other preprocedura l examination Nery Conte FNP 10/02/2020 K21.9 Gastro-esophageal reflux disease without esophagitis Nery Conte, [employer] SEINE 10/02/2020 N62 Hypertrophy of breast Nery Conte, FISHER PUR[employer] SEINE 08/21/2020 Z00.00 Encounter for genera l adult medical examination without abnormal findings Dg Nery, FISHER PUR[employer] SEINE 08/21/2020 R14.0 Abdominal distension (gaseous) P Nery young, FISHER PUR[employer] SEINE 08/21/2020 K21.9 Gastro-esophageal reflux disease without esophagitis Nery Conte, FISHER PUR[employer] SEINE 08/21/2020 M54.2 Cervicalgia Jacksonbrent Nery, FISHER PUR[employer] SEINE 04/14/2020 R14.0 Abdominal distension (gaseous) P hector Nery, FISHER PUR[employer] SEINE 04/14/2020 M54.2 Cervicalgia Nery Conte, FISHER PURSE SEINE Plan of Treatment Future Appointment(s):* 02/21/2021 8:15 am - Nery Conte FNP at Main Office 10/02/2020 - Nery Conte FNP* Z01.818 Encounter for other preprocedural examination* New Labs:* Comprehensive Metabolic Profil, Scheduled: 10/02/20 * CBC With Differential, Scheduled: 10/02/20 * Ua Routine, Scheduled: 10/02/20 * Urine Culture, Scheduled: 10/02/20 * Comments:* EKG done shows NSR with no acute changesPatient is medically optimized for the planned procedure pending lab results * K21.9 Gastro-esophageal reflux disease without esophagitis* [...] Concern for food allergies Schedule d 10/25/[address] [place], [place] [address] [phone] [facility] refer for breast re duction per recommendation of spinal specialist Closed [address] [place] [address] [phone] Tammi Fair MD Refer for question of hormone imbalance causin g GI sx Closed [facility] [address] [facility] [address] [phone] Zunilda Robin, refer for breast reduction p er recommendation of spinal specialist Closed 05/03/2020 [facility] Plastic Surgery [address] [place], [place] [address] [phone]
--- OUTSIDE RECORDS SUMMARY | 2020-10-12 06:21 | CCD | Continuity of Care Document ---
Author Author Lindsay CONTE [facility] Organization Unknown Address [address] [place] [address] Phone [phone] Care Team Providers Care Postal Delivery Officer Name Role Phone Katiana Gastro - Gastroenterology AUTM Rubén Gutiérrez MD AUTM [phone] Esme Barrientos MD AUTM Tammi Fair MD AUTM [phone] Zunilda Robin DO AUTM [phone] [facility]ergy [facility] Immunology AUTM [phone] Problems Active Problems Provider Date Gastroesophageal reflux [...] mouth once a day 180tabs JacksonNery kennedy, GARAGE LABORER 12/01/2019 Immunizations CPT Code Status Date Vaccine Lot # [id number] Given 08/18/2017 Boostrix (Tdap) Tetnus, Diphtheria Toxoids & Acellular Pertussis TB2R2 85602 Given 09/22/2008 MMR [id number] Vital Signs Date Vital Result Comment 10/02/2020 4:13pm BP Systolic 119 mmHg BP Diastolic 80 mmHg Heart Rate 77 /min Body Temperature 97.7 F Respiratory Rate 16 /min Height 61.75 inches 5'1.75" Weight 160.25 lb O2 % BldC Oximetry 99 % Peak Expiratory Flow Rate 344 Estimated Peak Flow Rate [place] Body Weight 105 lb BMI (Body Mass Index) 29.5 kg/m2 08/21/2020 8:32am BP Systolic 127 mmHg BP Diastolic 78 mmHg Heart Rate 97 /min Body Temperature 98.1 F Respiratory Rate 16 /min Height 61.75 inches 5'1.75" Weight 162.38 lb O2 % BldC Oximetry 98 % Peak Expiratory Flow Rate 344 Estimated Peak Flow Rate [place] Body Weight 105 lb BMI (Body Mass Index) 29.9 kg/m2 Results Test Acquired Date Facility Test Result H/L Range Note Order 10/02/2020 [facility] [address] [place], [place] [address] [phone] Electrocardiogram <pending> Comprehensive Metabolic Profil 09/07/2020 [facility] [phone] Glucose, Fasting 88 mg/dL Normal 70-100 Blood [...] Ratio 1.1 Low 1.2-2.2 Lipid Panel 09/07/2020 [facility] nter [phone] Triglycerides Level 52 mg/dL Normal <150 Cholesterol Level 238 mg/dL High <200 HDL Cholesterol 61 mg/dL Normal >40 LDL Cholesterol 167 mg/dL High <100 Non-HDL-C 177 mg/dL Normal Cholesterol Risk Ratio 3.901 Normal <5 FT4&TSH Panel 09/07/2020 [facility] nter [phone] Thyroid Stimulating Hormone 0.994 uIU/ML Normal 0. 358-3.740 Free T4 0.95 ng/dL Normal 0.76-1.46 1 Units are mL/min/1.73 m2 Chronic Kidney Disease Staging per NKF: Stage I & II GFR >=60 Normal to Mildly Decreased Stage III GFR 30-59 Moderately Decreased Stage IV GFR 15-29 Severely Decreased Stage V GFR <15 Very Little GFR Left ESRD GFR <15 on NEWBORN PHOTOGRAPHER Procedures Date Code Description Status 10/02/2020 32949 EKG Interpretation & Report Comp leted 09/25/2020 [id number] Mammogram Completed Medical Devices Description No Information Available Encounters Type Date Location Provider Dx Diagnosis Office Visit 10/02/2020 4:00p Main Office Nery Conte FNP Z01.8 18 Encounter for other preprocedural examination K21.9 Gastro-esophageal reflux dis ease without esophagitis Office Visit 08/21/2020 8:15a Main Office Nery [...] 10/02/2020 K21.9 Gastro-esophageal reflux disease without esophagitis Plevictam Nery, GARAGE LABORER 08/21/2020 Z00.00 Encounter for genera l adult medical examination without abnormal findings Nery Conte, GARAGE LABORER 08/21/2020 R14.0 Abdominal distension (gaseous) P hector Nery, GARAGE LABORER 08/21/2020 K21.9 Gastro-esophageal reflux disease without esophagitis Nery Conte, GARAGE LABORER 08/21/2020 M54.2 Cervicalgia Nery Conte, GARAGE LABORER 04/14/2020 R14.0 Abdominal distension (gaseous) P hector Nery, GARAGE LABORER 04/14/2020 M54.2 Cervicalgia HaroldoachStefanoy, GARAGE LABORER Plan of Treatment Future Appointment(s):* 02/21/2021 8:15 [...] disease without esophagitis* Comments:* controlled on famotidine Functional Status Functional Condition Comment Date Status Glasses reading Active Independent with all ADL's Activ e Independent with all IADL's Acti ve Mental Status Mental Condition Comment Date Status None Active Referrals Refer to Reason for Referral Status Appt Date [facility] Concern for food allergies Schedule d 10/25/[address] [place] [address] [phone] [facility] refer for breast re duction per recommendation of spinal specialist Closed [address] [place] [address] [phone] Tammi Fair MD Refer for question of hormone imbalance causin g GI sx Closed [facility] [address] [facility] [address] [phone] Zunilda Robin, DO refer for breast reduction p er recommendation of spinal specialist Closed 05/03/2020 [facility] Plastic Surgery [address] [place] [address] [phone]
--- OUTSIDE RECORDS SUMMARY | 2020-10-12 06:21 | CCD | Continuity of Care Document ---
Author Author Lindsay CONTE [facility] Organization Unknown Address [address] [place] [address] Phone [phone] Care Team Providers Care Sheet Music Salesperson Name Role Phone Katiana Gastro - Gastroenterology AUTM [phone] Rubén Gutiérrez MD AUTM [phone] Esme Barrientos MD AUTM Tammi Fair MD AUTM [phone] Zunilda Robin DO AUTM [phone] [facility] - Allergy [facility] Immunology AUTM [phone] Problems Active Problems Provider Date Gastroesophageal reflux [...] 1 by mouth once a day 180tabs Jacksonbrent Nery, [facility] 12/01/2019 Immunizations CPT Code Status Date Vaccine Lot # 18819 Given 08/18/2017 Boostrix (Tdap) Tetnus, Diphtheria Toxoids & Acellular Pertussis TB2R2 30356 Given 09/22/2008 MMR [id number] Vital Signs Date Vital Result Comment 10/02/2020 4:13pm BP Systolic 119 mmHg BP Diastolic 80 mmHg Heart Rate 77 /min Body Temperature 97.7 F Respiratory Rate 16 /min Height 61.75 inches 5'1.75" Weight 160.25 lb O2 % BldC Oximetry 99 % Peak Expiratory Flow Rate 344 Estimated Peak Flow Rate [place] Body Weight 105 lb BMI (Body Mass Index) 29.5 kg/m2 08/21/2020 8:32am BP Systolic 127 mmHg BP Diastolic 78 mmHg Heart Rate 97 /min Body Temperature 98.1 F Respiratory Rate 16 /min Height 61.75 inches 5'1.75" Weight 162.38 lb O2 % BldC Oximetry 98 % Peak Expiratory Flow Rate 344 Estimated Peak Flow Rate [place] Body Weight 105 lb BMI (Body Mass Index) 29.9 kg/m2 Results Test Acquired Date Facility Test Result H/L Range Note CBC With Differential 10/04/[address] [facility] [address] [place] [address] [phone] WBC 5.8 x10E3/uL 3.4-10.8 1 RBC 4.51 x10E6/uL 3.77-5.28 2 Hemoglobin 13.9 g/dL 11.1-15.9 3 Hematocrit 40.8 % 34.0-46.6 4 MCV 91 fL 79-97 5 MCH 30.8 pg 26.6-33.0 6 MCHC 34.1 g/dL 31.5-35.7 7 RDW 12.1 % 11.7-15.4 8 Platelets 164 x10E3/uL 150-450 9 Neutrophils 50 % Not Estab. 10 Lymphs 36 % Not Estab. 11 Monocytes 9 % Not Estab. 12 Eos 4 % Not Estab. 13 Basos 1 % Not Estab. 14 Immature Cells TNP 15 Neutrophils (Absolute) 3.0 x10E3/uL 1.4-7.0 16 Lymphs (Absolute) 2.1 x10E3/uL 0.7-3.1 17 Monocytes(Absolute) 0.5 x10E3/uL 0.1-0.9 18 Eos (Absolute) 0.2 x10E3/uL 0.0-0.4 19 Baso (Absolute) 0.0 x10E3/uL 0.0-0.2 20 Immature Granulocytes 0 % Not Estab. 21 Immature Grans (Abs) 0.0 x10E3/uL 0.0-0.1 22 NRBC TNP 23 Hematology Comments: [place] 24 Laboratory test finding 10/04/[address] [facility] [address] [place] [address] [phone] Lor Ling CMP14 Default See Comment: 25 Metabolic Panel (14), Comprehensive 10/04/2020 [facility] [address] [place] [address] [phone] Glucose 80 mg/dL 65-99 26 BUN 9 mg/dL 6-24 27 Creatinine 0.77 mg/dL 0.57-1.00 28 eGFR If NonAfricn Am 95 mL/min/1.73 >59 29 eGFR If Africn Am 109 mL/min/1.73 >59 30 BUN/Creatinine Ratio 12 9-23 31 Sodium 137 mmol/L 134-144 32 Potassium 4.3 mmol/L 3.5-5.2 33 Chloride 102 mmol/L 96-106 34 Carbon Dioxide, Total 23 mmol/L 20-29 35 Calcium 9.3 mg/dL 8.7-10.2 36 Protein, Total 7.3 g/dL 6.0-8.5 37 Albumin 4.3 g/dL 3.8-4.8 38 Globulin, Total 3.0 g/dL 1.5-4.5 39 A/G Ratio 1.4 1.2-2.2 40 Bilirubin, Total 0.4 mg/dL 0.0-1.2 41 Alkaline Phosphatase 51 IU/L 39-117 42 Ast (Sgot) 15 IU/L 0-40 43 Alt (SGPT) 9 IU/L 0-32 44 Urinalysis, Routine With Micro On Pos 10/04/2020 [facility] [address] [place] [address] [phone] Specific [place] 1.008 1.005-1.030 45 pH 7.5 5.0-7.5 46 Urine-Color Yellow Yellow 47 Appearance Clear Clear 48 WBC Esterase Negative Negative 49 Protein Negative Negative/Trace 50 Glucose Negative Negative 51 Ketones Negative Negative 52 Occult Blood Negative Negative 53 Bilirubin Negative Negative 54 Urobilinogen,Semi-Qn 0.2 mg/dL 0.2-1.0 55 Nitrite, Urine Negative Negative 56 Microscopic Examination See Comment: 57 Order 10/02/2020 [facility] [address] [place], [place] [address] [phone] Electrocardiogram <pending> Comprehensive Metabolic Profil 09/07/2020 [facility] [phone] Glucose, Fasting 88 mg/dL Normal 70-100 Blood Urea Nitrogen 12 mg/dL Normal 7-18 Creatinine For GFR 0.74 mg/dL Normal 0.55-1.30 Glomerular Filtration Rate > 60.0 Normal >58 5 8 Sodium Level 136 mEq/L Normal 136-145 Potassium [...] Ratio 1.1 Low 1.2-2.2 Lipid Panel 09/07/2020 [facility] nter [phone] Triglycerides Level 52 mg/dL Normal <150 Cholesterol Level 238 mg/dL High <200 HDL Cholesterol 61 mg/dL Normal >40 LDL Cholesterol 167 mg/dL High <100 Non-HDL-C 177 mg/dL Normal Cholesterol Risk Ratio 3.901 Normal <5 FT4&TSH Panel 09/07/2020 [facility] nter [phone] Thyroid Stimulating Hormone 0.994 uIU/ML Normal 0. 358-3.740 Free T4 0.95 ng/dL Normal 0.76-1.46 1 Source of Specimen: UC 2 Source of Specimen: UC 3 Source [...] Specimen: UC 25 Source of Specimen: UC A hand-written panel/profile was received from your office. In accordance with the [facility] Ambiguous Test Code Policy dated March 2003, we have completed your order by us ing the closest currently or formerly recognized AMA panel. We have assigned Comprehensive Metabolic Panel (14), Test Code #844242 to this request. If this is not the testing you wished to receive on this specimen, please contact the [facility] Client Inquiry/Technical Services Department to clarify the test order. We appreciate your business. 26 Source of Specimen: 27 Source of Specimen: 28 Source of Specimen: 29 Source of Specimen: 30 Source of Specimen: 31 Source of Specimen: 32 Source of Specimen: 33 Source of Specimen: 34 Source of Specimen: 35 Source of Specimen: 36 Source of Specimen: 37 Source of Specimen: 38 Source of Specimen: 39 Source of Specimen: 40 Source of Specimen: 41 Source of Specimen: UC 42 Source of Specimen: UC 43 Source of Specimen: 44 Source of Specimen: 45 Source of Specimen: 46 Source of Specimen: 47 Source of Specimen: 48 Source of Specimen: 49 Source of Specimen: 50 Source of Specimen: UC 51 Source of Specimen: UC 52 Source of Specimen: UC 53 Source of Specimen: UC 54 Source of Specimen: UC 55 Source of Specimen: UC 56 Source of Specimen: UC 57 Source of Specimen: UC Microscopic follows if indicated. 58 Units are mL/min/1.73 m2 Chronic Kidney Disease Staging per NKF: Stage I & II GFR >=60 Normal to Mildly Decreased Stage III GFR 30-59 Moderately Decreased Stage IV GFR 15-29 Severely Decreased Stage V GFR <15 Very Little GFR Left ESRD GFR <15 on HSE COORDINATOR Procedures Date Code Description Status 10/02/2020 03460 EKG Interpretation & Report Comp leted 09/25/2020 [id number] Mammogram Completed Medical Devices Description No Information Available Encounters Type Date Location Provider Dx Diagnosis Office Visit 10/02/2020 4:00p Main Office Nery Conte, FULLING MILL OPERATOR Z01.8 18 Encounter for other preprocedural examination K21.9 Gastro-esophageal reflux dis ease without esophagitis N62 Hypertrophy of breast Office Visit 08/21/2020 8:15a Main Office PleStefano kennedyy, FULLING MILL OPERATOR Z00.0 0 Encntr for general adult medical exam w/o abnormal findings R14.0 Abdominal distension (gaseou s) K21.9 Gastro-esophageal reflux dis ease without esophagitis M54.2 Cervicalgia Office Visit 04/14/2020 11:45a Main Office PleNery kennedy, FULLING MILL OPERATOR R14.0 Abdominal distension (gaseous) M54.2 Cervicalgia Assessments Date Code Description Provider 10/02/2020 Z01.818 Encounter for other preprocedura l examination Nery Conte, FULLING MILL OPERATOR 10/02/2020 K21.9 Gastro-esophageal reflux disease without esophagitis Nery Conte, FULLING MILL OPERATOR 10/02/2020 N62 Hypertrophy of breast Nery Conte, FULLING MILL OPERATOR 08/21/2020 Z00.00 Encounter for genera l adult medical examination without abnormal findings Nery Conte, FULLING MILL OPERATOR 08/21/2020 R14.0 Abdominal distension (gaseous) P Nery young, FULLING MILL OPERATOR 08/21/2020 K21.9 Gastro-esophageal reflux disease without esophagitis Stefano Contey, FULLING MILL OPERATOR 08/21/2020 M54.2 Cervicalgia Stefano Contey, FULLING MILL OPERATOR 04/14/2020 R14.0 Abdominal distension (gaseous) P Nery young, FULLING MILL OPERATOR 04/14/2020 M54.2 Cervicalgia Nery Conte, FULLING MILL OPERATOR Plan of Treatment Future Appointment(s):* 02/21/2021 8:15 [...] Concern for food allergies Schedule d 10/25/[address] [place] [address] [phone] [facility] refer for breast re duction per recommendation of spinal specialist Closed [address] [place] [address] [phone] Tammi Fair MD Refer for question of hormone imbalance causin g GI sx Closed [facility] [address] [place] [address] [phone] Zunilda Robin DO refer for breast reduction p er recommendation of spinal specialist Closed 05/03/2020 [facility] Plastic Surgery [address] [place] [address] [phone]
--- OUTSIDE RECORDS SUMMARY | 2020-10-12 06:22 | CCD ---
Author Author [facility] Organization [facility] Address Unknown Phone Unavailable Care Team Providers Care School Bus Technician Name Role Phone Karen Polk MD Unavailable Unavailable Karen Polk MD Unavailable Unavailable Karen Polk MD Unavailable Unavailable Karen Polk MD Unavailable Unavailable Karen Polk MD Unavailable Unavailable Karen Polk MD Unavailable Unavailable Karen Polk MD Unavailable Unavailable Karen Polk MD Unavailable Unavailable Karen Polk MD Unavailable Unavailable Karen Polk MD Unavailable Unavailable Karen Polk MD Unavailable Unavailable Karen Polk MD Unavailable Unavailable Karen Polk MD Unavailable Unavailable Karen Polk MD Unavailable Unavailable Karen Polk MD Unavailable Unavailable Karen Polk MD Unavailable Unavailable Karen Polk MD Unavailable Unavailable Karen Polk MD Unavailable Unavailable Karen Polk MD Unavailable Unavailable Karen Polk MD Unavailable Unavailable Karen Polk MD Unavailable Unavailable Karen Polk MD Unavailable Unavailable Karen Polk MD Unavailable Unavailable Jam, A Leora FLOWERS Unavailable Unavailable Jam, A Leora FLOWERS Unavailable Unavailable Jam, A Leora FLOWERS Unavailable Unavailable Jam, A Leora FLOWERS Unavailable Unavailable Jam, A Leora FLOWERS Unavailable Unavailable Jam, A Leora FLOWERS Unavailable Unavailable Jam, A Leora FLOWERS Unavailable Unavailable Jam, A Leora FLOWERS Unavailable Unavailable Jam, A Leora FLOWERS Unavailable Unavailable Jam, A Leora FLOWERS Unavailable Unavailable Jam, A Leora FLOWERS Unavailable Unavailable Jam, A Leora FLOWERS Unavailable Unavailable Jam, A Leora FLOWERS Unavailable Unavailable Jam, A Leora FLOWERS Unavailable Unavailable Jam, A Leora FLOWERS Unavailable Unavailable Jam, A Leora FLOWERS Unavailable Unavailable Jam, A Leora FLOWERS Unavailable Unavailable Jam, A Leora FLOWERS Unavailable Unavailable Jam, A Leora FLOWERS Unavailable Unavailable Jam, A Leora FLOWERS Unavailable Unavailable Jam, A Leora FLOWERS Unavailable Unavailable Jam, A Leora FLOWERS Unavailable Unavailable Jam, A Leora FLOWERS Unavailable Unavailable Jam, A Leora FLOWERS Unavailable Unavailable Jam, A Leora FLOWERS Unavailable Unavailable Jam, A Leora FLOWERS Unavailable Unavailable Jam, A Leora FLOWERS Unavailable Unavailable Jam, A Leora FLOWERS Unavailable Unavailable Jam, A Leora FLOWERS Unavailable Unavailable Jam, A Leora FLOWERS Unavailable Unavailable Jam, A Leora FLOWERS Unavailable Unavailable Jam, A Leora FLOWERS Unavailable Unavailable Jam, A Leora FLOWERS Unavailable Unavailable Jam, A Leora FLOWERS Unavailable Unavailable Jam, A Leora FLOWERS Unavailable Unavailable Jam, A Leora FLOWERS Unavailable Unavailable Jam, A Leora FLOWERS Unavailable Unavailable Jam, A Leora FLOWERS Unavailable Unavailable Jam, A Leora FLOWERS Unavailable Unavailable Jam, A Leora FLOWERS Unavailable Unavailable Jam, A Leora FLOWERS Unavailable Unavailable Jam, A Leora FLOWERS Unavailable Unavailable Jam, A Leora FLOWERS Unavailable Unavailable Jam, A Leora FLOWERS Unavailable Unavailable Jam, A Leora FLOWERS Unavailable Unavailable Jam, A Leora FLOWERS Unavailable Unavailable Jam, Karen Corey MD Unavailable Unavailable Jam, Karen Corey MD Unavailable Unavailable Jam, Karen Corey MD Unavailable Unavailable Jam, A Leora FLOWERS Unavailable Unavailable Jam, A Leora FLOWERS Unavailable Unavailable Jam, A Leora FLOWERS Unavailable Unavailable Pleskach, Nery NETWORK STRATEGIST Unavailable Unavailable Pleskach, Nery NETWORK STRATEGIST Unavailable Unavailable Pleskach, Nery NETWORK STRATEGIST Unavailable Unavailable Pleskach, Nery NETWORK STRATEGIST Unavailable Unavailable Pleskach, Nery NETWORK STRATEGIST Unavailable Unavailable Pleskach, Nery NETWORK STRATEGIST Unavailable Unavailable Pleskach, Nery NETWORK STRATEGIST Unavailable Unavailable Pleskach, Nery NETWORK STRATEGIST Unavailable Unavailable Pleskach, Nery NETWORK STRATEGIST Unavailable Unavailable Pleskach, Nery NETWORK STRATEGIST Unavailable Unavailable Pleskach, Nery NETWORK STRATEGIST Unavailable Unavailable Pleskach, Nery NETWORK STRATEGIST Unavailable Unavailable Pleskach, Nery NETWORK STRATEGIST Unavailable Unavailable Pleskach, Nery NETWORK STRATEGIST Unavailable Unavailable Pleskach, Nery NETWORK STRATEGIST Unavailable Unavailable Pleskach, Nery NETWORK STRATEGIST Unavailable Unavailable Pleskach, Nery NETWORK STRATEGIST Unavailable Unavailable Pleskach, Nery NETWORK STRATEGIST Unavailable Unavailable Pleskach, Nery NETWORK STRATEGIST Unavailable Unavailable Pleskach, Nery NETWORK STRATEGIST Unavailable Unavailable Pleskach, Nery NETWORK STRATEGIST Unavailable Unavailable Pleskach, Nery NETWORK STRATEGIST Unavailable Unavailable Pleskach, Nery NETWORK STRATEGIST Unavailable Unavailable Pleskach, Nery NETWORK STRATEGIST Unavailable Unavailable Pleskach, Nery NETWORK STRATEGIST Unavailable Unavailable Pleskach, Nery NETWORK STRATEGIST Unavailable Unavailable Pleskach, Nery NETWORK STRATEGIST Unavailable Unavailable Pleskach, Nery NETWORK STRATEGIST Unavailable Unavailable Pleskach, Nery NETWORK STRATEGIST Unavailable Unavailable Pleskach, Nery NETWORK STRATEGIST Unavailable Unavailable COOK, B MANUEL CHAIRMAN CEO Unavailable Unavailable COOK, B MANUEL CHAIRMAN CEO Unavailable Unavailable COOK, B MANUEL CHAIRMAN CEO Unavailable Unavailable COOK, B MANUEL CHAIRMAN CEO Unavailable Unavailable COOK, B MANUEL CHAIRMAN CEO Unavailable Unavailable COOK, B MANUEL CHAIRMAN CEO Unavailable Unavailable COOK, B MANUEL CHAIRMAN CEO Unavailable Unavailable COOK, B MANUEL CHAIRMAN CEO Unavailable Unavailable COOK, B MANUEL CHAIRMAN CEO Unavailable Unavailable COOK, B MANUEL CHAIRMAN CEO Unavailable Unavailable COOK, B MANUEL CHAIRMAN CEO Unavailable Unavailable COOK, B MANUEL CHAIRMAN CEO Unavailable Unavailable COOK, B MANUEL CHAIRMAN CEO Unavailable Unavailable COOK, B MANUEL CHAIRMAN CEO Unavailable Unavailable COOK, B MANUEL CHAIRMAN CEO Unavailable Unavailable COOK, B MANUEL CHAIRMAN CEO Unavailable Unavailable COOK, B MANUEL CHAIRMAN CEO Unavailable Unavailable COOK, B MANUEL CHAIRMAN CEO Unavailable Unavailable COOK, B MANUEL CHAIRMAN CEO Unavailable Unavailable COOK, B MANUEL CHAIRMAN CEO Unavailable Unavailable COOK, B MANUEL CHAIRMAN CEO Unavailable Unavailable COOK, B MANUEL CHAIRMAN CEO Unavailable Unavailable COOK, B MANUEL CHAIRMAN CEO Unavailable Unavailable COOK, B MANUEL CHAIRMAN CEO Unavailable Unavailable COOK, B MANUEL CHAIRMAN CEO Unavailable Unavailable COOK, B MANUEL CHAIRMAN CEO Unavailable Unavailable COOK, B MANUEL CHAIRMAN CEO Unavailable Unavailable COOK, B MANUEL CHAIRMAN CEO Unavailable Unavailable COOK, B MANUEL CHAIRMAN CEO Unavailable Unavailable COOK, B MANUEL CHAIRMAN CEO Unavailable Unavailable COOK, B MANUEL CHAIRMAN CEO Unavailable Unavailable COOK, B MANUEL CHAIRMAN CEO Unavailable Unavailable COOK, B MANUEL CHAIRMAN CEO Unavailable Unavailable COOK, B MANUEL CHAIRMAN CEO Unavailable Unavailable COOK, B MANUEL CHAIRMAN CEO Unavailable Unavailable COOK, B MANUEL CHAIRMAN CEO Unavailable Unavailable COOK, B MANUEL CHAIRMAN CEO Unavailable Unavailable COOK, B MANUEL CHAIRMAN CEO Unavailable Unavailable COOK, B MANUEL CHAIRMAN CEO Unavailable Unavailable COOK, B MANUEL CHAIRMAN CEO Unavailable Unavailable COOK, B MANUEL CHAIRMAN CEO Unavailable Unavailable COOK, B MANUEL CHAIRMAN CEO Unavailable Unavailable COOK, B MANUEL CHAIRMAN CEO Unavailable Unavailable COOK, B MANUEL CHAIRMAN CEO Unavailable Unavailable COOK, B MANUEL CHAIRMAN CEO Unavailable Unavailable COOK, B MANUEL CHAIRMAN CEO Unavailable Unavailable COOK, B MANUEL CHAIRMAN CEO Unavailable Unavailable COOK, B MANUEL CHAIRMAN CEO Unavailable Unavailable COOK, B MANUEL CHAIRMAN CEO Unavailable Unavailable COOK, B MANUEL CHAIRMAN CEO Unavailable Unavailable COOK, B MANUEL CHAIRMAN CEO Unavailable Unavailable COOK, B MANUEL CHAIRMAN CEO Unavailable Unavailable COOK, B MANUEL CHAIRMAN CEO Unavailable Unavailable COOK, B MANUEL CHAIRMAN CEO Unavailable Unavailable COOK, B MANUEL CHAIRMAN CEO Unavailable Unavailable COOK, B MANUEL CHAIRMAN CEO Unavailable Unavailable COOK, B MANUEL CHAIRMAN CEO Unavailable Unavailable COOK, B MANUEL CHAIRMAN CEO Unavailable Unavailable COOK, B MANUEL CHAIRMAN CEO Unavailable Unavailable COOK, B MANUEL CHAIRMAN CEO Unavailable Unavailable COOK, B MANUEL CHAIRMAN CEO Unavailable Unavailable COOK, B MANUEL CHAIRMAN CEO Unavailable Unavailable COOK, B MANUEL CHAIRMAN CEO Unavailable Unavailable COOK, B MANUEL CHAIRMAN CEO Unavailable Unavailable DUSSING, JAY NETWORK STRATEGIST-C Unavailable Unavailable DUSSING, JAY NETWORK STRATEGIST-C Unavailable Unavailable DUSSING, JAY NETWORK STRATEGIST-C Unavailable Unavailable DUSSING, JAY NETWORK STRATEGIST-C Unavailable Unavailable DUSSING, JAY NETWORK STRATEGIST-C Unavailable Unavailable DUSSING, JAY NETWORK STRATEGIST-C Unavailable Unavailable DUSSING, JAY NETWORK STRATEGIST-C Unavailable Unavailable DUSSING, JAY NETWORK STRATEGIST-C Unavailable Unavailable DUSSING, JAY NETWORK STRATEGIST-C Unavailable Unavailable DUSSING, JAY NETWORK STRATEGIST-C Unavailable Unavailable DUSSING, JAY NETWORK STRATEGIST-C Unavailable Unavailable DUSSING, JAY NETWORK STRATEGIST-C Unavailable Unavailable DUSSING, JAY NETWORK STRATEGIST-C Unavailable Unavailable DUSSING, JAY NETWORK STRATEGIST-C Unavailable Unavailable DUSSING, JAY NETWORK STRATEGIST-C Unavailable Unavailable DUSSING, JAY NETWORK STRATEGIST-C Unavailable Unavailable DUSSING, JAY NETWORK STRATEGIST-C Unavailable Unavailable DUSSING, JAY NETWORK STRATEGIST-C Unavailable Unavailable DUSSING, JAY NETWORK STRATEGIST-C Unavailable Unavailable DUSSING, JAY NETWORK STRATEGIST-C Unavailable Unavailable DUSSING, JAY NETWORK STRATEGIST-C Unavailable Unavailable DUSSING, JAY NETWORK STRATEGIST-C Unavailable Unavailable DUSSING, JAY NETWORK STRATEGIST-C Unavailable Unavailable DUSSING, JAY NETWORK STRATEGIST-C Unavailable Unavailable DUSSING, JAY NETWORK STRATEGIST-C Unavailable Unavailable DUSSING, JAY NETWORK STRATEGIST-C Unavailable Unavailable DUSSING, JAY NETWORK STRATEGIST-C Unavailable Unavailable DUSSING, JAY NETWORK STRATEGIST-C Unavailable Unavailable DUSSING, JAY NETWORK STRATEGIST-C Unavailable Unavailable DUSSING, JAY NETWORK STRATEGIST-C Unavailable Unavailable DUSSING, JAY NETWORK STRATEGIST-C Unavailable Unavailable DUSSING, JAY NETWORK STRATEGIST-C Unavailable Unavailable DUSSING, JAY NETWORK STRATEGIST-C Unavailable Unavailable Re-disclosure Warning The records that you are about to access may contain information from federally-assisted alcohol or drug abuse programs. If such information is present, then the following federally mandated warning applies: This information has been disclosed to you from records protected by federal confidentiality rules (42 CFR part 2). The federal rules prohibit you from making any further disclosure of this information unless further disclosure is expressly permitted by the written consent of the person to whom it pertains or as otherwise permitted by 42 CFR part 2. A general authorization for the release of medical or other information is NOT sufficient for this purpose. The Federal rules restrict any use of the information to criminally investigate or prosecute any alcohol or drug abuse patient.The records that you are about to access may contain highly sensitive health information, the redisclosure of which is protected by Article 27-F of the [facility] Public Health law. If you continue you may have access to information: Regarding HIV / AIDS; Provided by facilities licensed or operated by the [facility] Office of Mental Health; or Provided by the [facility] Office for People With Developmental Disabilities. If such information is present, then the following [facility] mandated warning applies: This information has been disclosed to you from confidential records which are protected by state law. State law prohibits you from making any further disclosure of this information without the specific written consent of the person to whom it pertains, or as otherwise permitted by law. Any unauthorized further disclosure in violation of state law may result in a fine or custodial sentence or both. A general authorization for the release of medical or other information is NOT sufficient authorization for further disc losure. Family History Family Member Name Family Member Gender Family Member Status Date o f Status Description Data Source(s) Unknown Unknown Problem [facility] ([facility], ) GM Unknown Unknown Problem [facility] ([facility] Encounters Encounter Providers Location Date Indications Data Source(s ) Outpatient Attender: Nery Conte [facility] Main Office 10/02/2020 0 3:00:00 PM EST [facility] ([facility] Outpatient Attender: Nery Conte [facility] Main Office 08/21/2020 0 7:15:00 AM EST [facility] ([facility] Outpatient Attender: MANUEL ALVARADO Physical Therapy 04/21/2020 0 2:45:00 PM EDT [facility] ([facility]) Outpatient Attender: Nery Conte [facility] Main Office 04/14/2020 1 1:45:00 AM EDT [facility] ([facility] Outpatient Attender: JAY HAMMOND-CReferrer: Leora oviedo MD 03/15/2020 09:39:22 AM EDT [facility] [address] [place] [phone] 01/03/2020 12:00:00 AM EDT eCW1 ([facility]) Outpatient Attender: JAY HIGHTOWERCReferrer: Leora oviedo MD 11/29/2019 03:07:24 PM EDT [facility] Outpatient Attender: JAY HIGHTOWERCReferrer: Leora oviedo MD 09/29/2019 02:45:38 PM EST [facility] Immunizations Vaccine Date Status Description Data Source(s) INFLUENZA VIRUS VACCINE QUADRIVAL [id number](6 MOS AND UP)/PF 05/18/2020 12:00:00 AM EDT completed [facility] Medications Medication Brand Name Start Date Product Form Dose Route Admi nistrative Instructions Pharmacy Instructions Status Indications Reaction Description Data Source(s) Cyclobenzaprine hydrochloride 10 MG Oral Tablet Cyclobenzapr ine HCL 08/21/2020 12:00:00 AM EST ORAL active M [facility] ([facility] Cyclobenzaprine hydrochloride 10 MG Oral Tablet CYCLOBENZAPR INE HCL 08/21/2020 12:00:00 AM EST tablet 30 TAKE 1/2-1 TABLE T BY MOUTH THREE TIMES A DAY NEEDED TAKE 1/2-1 TABLET BY MOUTH THREE TIMES A DAY NEEDED SOLD: 08/21/2020 [facility] Famotidine 20 MG Oral Tablet FAMOTIDINE 02/22/2020 12:00:00 AM EDT tab let 60 TAKE ONE TABLET BY MOUTH TWICE A DAY TAKE ONE TABLET BY MOUTH TWICE A DAY SOLD: 02/22/2020 [facility] Famotidine 20 MG Oral Tablet FAMOTIDINE 12/15/2019 12:00:00 AM EDT tab let 60 TAKE ONE TABLET BY MOUTH TWICE A DAY TAKE ONE TABLET BY MOUTH TWICE A DAY SOLD: 01/26/2020 [facility] 20 mg 12/15/2019 12:00:00 AM EDT tablet 60 TAKE ONE TABLET BY MOUTH TWICE A DAY TAKE ONE TABLET BY MOUTH TWICE A DAY SOLD: 12/18/2019 [facility] Famotidine 20 MG Oral Tablet FAMOTIDINE 12/01/2019 12:00:00 AM EDT tab let 30 TAKE 1 TABLET BY MOUTH ONCE DAILY TAKE 1 TABLET BY MOUTH ONCE DAILY SOLD: 12/02/2019 [facility] Famotidine 20 MG Oral Tablet Famotidine 12/01/2019 12:00:00 AM EDT ORAL active [facility] ([facility]) Famotidine 20 MG Oral Tablet Famotidine 12/01/2019 12:00:00 AM EDT ORAL active [facility] ([facility] 15 mg 11/30/2019 12:00:00 AM EDT tablet 30 TAKE 1 TABLET BY MOUTH ONCE DAILY WITH FOOD MAXIMUM DAILY DOSE = 1 TAKE 1 TABLET BY MOUTH ONCE DAILY WITH F OOD MAXIMUM DAILY DOSE = 1 SOLD: 12/02/2019 [facility] 15 mg 09/29/2019 12:00:00 AM EST tablet 30 TAKE ONE TABLET BY MOUTH EVERY DAY WITH FOOD TAKE ONE TABLET BY MOUTH EVERY DAY WITH FOOD SOLD: 10/01/2019 [facility] 17.5-3.13-1.6 gram 09/23/2019 12:00:00 AM EST recon soln 354 TAKE PER DOCTOR'S BOWEL PREP INSTRUCTIONS TAKE PER DOCTOR'S BOWEL PREP INSTRUCTIONS SOLD: 09/25/2019 [facility] Suprep Bowel Prep Kit Suprep Bowel Prep Kit 09/22/2019 12:00:00 AM EST active [facility] ([facility], ) Magnesium Hydroxide 80 MG/ML Oral Suspension Milk Of Magnesi a 09/22/2019 12:00:00 AM EST ORAL active M [facility] ([facility], ) 20 mg 08/20/2019 12:00:00 AM EST capsule,delayed release (DR/EC) 30 TAKE 1 CAPSULE BY MOUTH ONCE DAILY TAKE 1 CAPSULE BY MOUTH ONCE DAILY SOLD: 08/22/2019 [facility] Omeprazole 20 MG Delayed Release Oral Capsule Omeprazole 08/20/2019 12:00:00 AM EST ORAL active [facility] ([facility] No Active Medications 08/20/2019 12:00:00 AM EST completed [facility] ([facility] Insurance Providers Payer name Policy type / Coverage type Policy ID Covered green party ID Covered green party's relationship to manzano Policy Manzano Plan Information [facility] [id number] SP [id number] [facility] O [id number] S [id number] [facility] F [id number] SELF [id number] [facility] F [id number] SELF [id number] ANSI-Commercial [id number] [facility] [place] Part B [id number] Self [id number] Commercial [id number] Self [id number] Commercial [id number] Self [id number] [facility] Medigap Part B [id number] Self [id number] [facility] Commercial [id number] Self [id number] UMR [employer] [facility] [facility] [id number] SP [id number] [employer] Medigap Part B [id number] Self [id number] Umr Commercial [id number] Self [id number] [employer] Medigap Part B [id number] Self [id number] Umr Commercial [id number] Self [id number] UMR [facility] [id number] SP [id number] [employer] [id number] SP [id number] [employer] Medigap Part B [id number] Self [id number] Umr Commercial [id number] Self [id number] [employer] Commercial [id number] Self [id number] [employer] Commercial [id number] Self [id number] [employer] PPO O [id number] S [id number] [employer] Commercial [id number] Self [id number] [employer] Commercial Self ZAYNAB CO PUB HLTH [id number] SP [id number] [employer] [id number] SP [id number] Ghi Medigap Part B Self [employer] Health Maintenance Organization (HMO) Se lf [employer]OM[employer] U [id number] Self [id number] [employer] [id number] SP [id number] Geha Commercial Self Problems, Conditions, and Diagnoses Code Display Name Description Problem Type Effective Dates Data Source(s) 174112816 Gastroesophageal reflux disease Gastroesophageal reflux disease Problem 10/02/2020 12:00:00 AM EST [facility] ([facility] Surgeries/Procedures Procedure Description Date Indications Data Source(s) ECG ROUTINE ECG W/LEAST 12 LDS W/I&R 10/02/2020 12:00: 00 AM EST [facility] ([facility] Mammogram 09/25/2020 12:00:00 AM EST M [facility] ([facility] THERAPEUTIC PX 1/> AREAS EACH 15 MIN EXERCISES 12:00:00 AM EDT [facility] ([facility] ) MANUAL THERAPY TQS 1/> REGIONS EACH 15 MINUTES 12:00:00 AM EDT [facility] ([facility] ) APPLICATION MODALITY 1/> AREAS HOT/COLD PACKS 02/24/20 12:00:00 AM EDT [facility] ([facility]) THERAPEUTIC PX 1/> AREAS EACH 15 MIN EXERCISES 12:00:00 AM EDT [facility] ([facility]) APPLICATION MODALITY 1/> AREAS HOT/COLD PACKS 02/21/20 12:00:00 AM EDT [facility] ([facility]) THERAPEUTIC PX 1/> AREAS EACH 15 MIN EXERCISES 12:00:00 AM EDT [facility] ([facility]) THERAPEUTIC PX 1/> AREAS EACH 15 MIN EXERCISES 12:00:00 AM EDT [facility] ([facility]) MANUAL THERAPY TQS 1/> REGIONS EACH 15 MINUTES 12:00:00 AM EDT [facility] ([facility]) THERAPEUTIC PX 1/> AREAS EACH 15 MIN EXERCISES 12:00:00 AM EDT [facility] ([facility]) MANUAL THERAPY TQS 1/> REGIONS EACH 15 MINUTES 12:00:00 AM EDT [facility] ([facility]) THERAPEUTIC PX 1/> AREAS EACH 15 MIN EXERCISES 12:00:00 AM EDT [facility] ([facility]) THERAPEUTIC PX 1/> AREAS EACH 15 MIN EXERCISES 12:00:00 AM EDT [facility] ([facility]) MANUAL THERAPY TQS 1/> REGIONS EACH 15 MINUTES 12:00:00 AM EDT [facility] ([facility]) THERAPEUTIC PX 1/> AREAS EACH 15 MIN EXERCISES 12:00:00 AM EDT [facility] ([facility]) MANUAL THERAPY TQS 1/> REGIONS EACH 15 MINUTES 12:00:00 AM EDT [facility] ([facility]) Physical Therapy Eval - Low Complexity 02/03/2020 12:0 0:00 AM EDT [facility] ([facility]) Results ID Date Data Source [id number] 10/07/2020 11:00:00 AM EST [facility] Name Value Range Interpretation Code Description Data Hazel rce(s) Supporting Document(s) SARS coronavirus 2 RNA Not Detected [facility] This lab was ordered by [facility] and reported by [facility]. ID Date Data Source [id number] 10/04/2020 08:10:00 AM EST [facility] ([facility] Name Value Range Interpretation Code Description Data [facility] Supporting Document(s) Specific gravity of Urine 1.008 1.005-1.030 [facility] ([facility] A courtesy copy of this report has been sent to [phone], the patient SRC:UC pH of Urine by Test strip 7.5 5.0-7.5 [facility] ([facility] A courtesy copy of this report has been sent to [phone], the patient SRC:UC Color of Urine Laboratory test result [facility] ([facility] A courtesy copy of this report has been sent to [phone], the patient SRC:UC Appearance of Urine Laboratory test result [facility] ([facility] A courtesy copy of this report has been sent to [phone], the patient SRC:UC Protein [Presence] in Urine by Test strip Laboratory test result [facility] ([facility] A courtesy copy of this report has been sent to [phone], the patient SRC:UC Leukocyte esterase [Presence] in Urine by Test strip Laboratory aga t result [facility] ([facility] A courtesy copy of this report has been sent to [phone], the patient SRC:UC Glucose [Presence] in Urine Laboratory test result [facility] ([facility] A courtesy copy of this report has been sent to [phone], the patient SRC:UC Ketones [Presence] in Urine by Test strip Laboratory test result [facility] ([facility] A courtesy copy of this report has been sent to [phone], the patient SRC:UC Bilirubin.total [Presence] in Urine by Test strip Laboratory test res ult [facility] ([facility] A courtesy copy of this report has been sent to [phone], the patient SRC:UC Hemoglobin [Presence] in Urine by Test strip Laboratory test result [facility] ([facility] A courtesy copy of this report has been sent to [phone], the patient SRC:UC Nitrite [Presence] in Urine by Test strip Laboratory test result [facility] ([facility] A courtesy copy of this report has been sent to [phone], the patient SRC:UC Urobilinogen [Mass/volume] in Urine by Test strip 0.2 mg/dL 0.2-1.0 [facility] ([facility] A courtesy copy of this report has been sent to [phone], the patient SRC:UC Urinalysis microscopic panel - Urine sediment Laboratory test result [facility] ([facility] A courtesy copy of this report has been sent to [phone], the patient SRC:UC ID Date Data Source [id number] 10/04/2020 08:10:00 AM EST [facility] ([facility] Name Value Range Interpretation Code Description Data Hazel rce(s) Supporting Document(s) Urea nitrogen [Mass/volume] in Serum or Plasma 9 mg/dL 6-24 [facility] ([facility] A courtesy copy of this report has been sent to [phone], the patient SRC:UC Glucose [Mass/volume] in Serum or Plasma 80 mg/dL 65-99 [facility] ([facility] A courtesy copy of this report has been sent to [phone], the patient SRC:UC Creatinine [Mass/volume] in Serum or Plasma 0.77 mg/dL 0.57-1.00 [facility] ([facility] A courtesy copy of this report has been sent to [phone], the patient SRC:UC eGFR If NonAfricn Am 95 mL/min/1.73 [facility] ([facility] A courtesy copy of this report has been sent to [phone], the patient SRC:UC Urea nitrogen/Creatinine [Mass Ratio] in Serum or Plasma 12 9 -23 [facility] ([facility] A courtesy copy of this report has been sent to [phone], the patient SRC:UC eGFR If Africn Am 109 mL/min/1.73 [facility] A courtesy copy of this report has been sent to [phone], the patient SRC:UC Chloride [Moles/volume] in Serum or Plasma 102 mmol/L 96-106 [facility] A courtesy copy of this report has been sent to [phone], the patient SRC:UC Potassium [Moles/volume] in Serum or Plasma 4.3 mmol/L 3.5-5.2 [facility] A courtesy copy of this report has been sent to [phone], the patient SRC:UC Sodium [Moles/volume] in Serum or Plasma 137 mmol/L 134-144 [facility] A courtesy copy of this report has been sent to [phone], the patient SRC:UC Carbon dioxide, total [Moles/volume] in Serum or Plasma 23 mmol/L 20 -29 [facility] A courtesy copy of this report has been sent to [phone], the patient SRC:UC Calcium [Mass/volume] in Serum or Plasma 9.3 mg/dL 8.7-10.2 [facility] A courtesy copy of this report has been sent to [phone], the patient SRC:UC Protein, Total 7.3 g/dL 6.0-8.5 [facility] A courtesy copy of this report has been sent to [phone], the patient SRC:UC Albumin [Mass/volume] in Serum or Plasma 4.3 g/dL 3.8-4.8 [facility] A courtesy copy of this report has been sent to [phone], the patient SRC:UC Albumin/Globulin [Mass Ratio] in Serum or Plasma 1.4 1.2-2.2 [facility] A courtesy copy of this report has been sent to [phone], the patient SRC:UC Globulin [Mass/volume] in Serum by calculation 3.0 g/dL 1.5-4.5 [facility] A courtesy copy of this report has been sent to [phone], the patient SRC:UC Bilirubin.total [Mass/volume] in Serum or Plasma 0.4 mg/dL 0.0-1.2 [facility] A courtesy copy of this report has been sent to [phone], the patient SRC:UC Alkaline phosphatase [Enzymatic activity/volume] in Serum or Plasma 51 IU/L 39-117 [facility] A courtesy copy of this report has been sent to [phone], the patient SRC:UC Alanine aminotransferase [Enzymatic activity/volume] in Seru m or Plasma 9 IU/L 0-32 [facility] A courtesy copy of this report has been sent to [phone], the patient SRC:UC Aspartate aminotransferase [Enzymatic activity/volume] in Serum or Plasma 15 IU/L 0-40 [facility] A courtesy copy of this report has been sent to [phone], the patient SRC:UC ID Date Data Source [id number] 10/04/2020 08:10:00 AM EST [facility] Name Value Range Interpretation Code Description Data Hazel rce(s) Supporting Document(s) Lor Ling CMP14 Default Laboratory test result [facility] A courtesy copy of this report has been sent to [phone], the patient SRC:UC ID Date Data Source [id number] 10/04/2020 08:10:00 AM EST [facility] Name Value Range Interpretation Code Description Data Hazel rce(s) Supporting Document(s) Urine Culture, Routine Laboratory test result [facility] A courtesy copy of this report has been sent to [phone], the patient SRC:UC Bacteria identified in Urine by Culture Laboratory test result [facility] A courtesy copy of this report has been sent to [phone], the patient SRC:UC ID Date Data Source [id number] 10/04/2020 08:10:00 AM EST [facility] Name Value Range Interpretation Code Description Data Hazel rce(s) Supporting Document(s) Leukocytes [#/volume] in Blood by Automated count 5.8 x10E3/uL 3.4-10 .8 [facility] A courtesy copy of this report has been sent to [phone], the patient SRC:UC Erythrocytes [#/volume] in Blood by Automated count 4.51 x10E6/uL 3.7 7-5.28 [facility] A courtesy copy of this report has been sent to [phone], the patient SRC:UC Hematocrit [Volume Fraction] of Blood by Automated count 40.8 % 3 4.0-46.6 [facility] A courtesy copy of this report has been sent to [phone], the patient SRC:UC Hemoglobin [Mass/volume] in Blood 13.9 g/dL 11.1-15.9 [facility] A courtesy copy of this report has been sent to [phone], the patient SRC:UC Erythrocyte mean corpuscular hemoglobin [Entitic mass] by Automated count 30.8 pg 26.6-33.0 [facility] A courtesy copy of this report has been sent to [phone], the patient SRC:UC Erythrocyte mean corpuscular volume [Entitic volume] by Auto mated count 91 fL 79-97 [facility] A courtesy copy of this report has been sent to [phone], the patient SRC:UC Erythrocyte mean corpuscular hemoglobin concentration [Mass/volume] by Automated count 34.1 g/dL 31.5-35.7 [facility] A courtesy copy of this report has been sent to [phone], the patient SRC:UC Erythrocyte distribution width [Ratio] by Automated count 12.1 % 11.7-15.4 [facility] A courtesy copy of this report has been sent to [phone], the patient SRC:UC Lymphocytes/100 leukocytes in Blood by Automated count 36 % [facility] A courtesy copy of this report has been sent to [phone], the patient SRC:UC Platelets [#/volume] in Blood by Automated count 164 x10E3/uL 150-450 [facility] A courtesy copy of this report has been sent to [phone], the patient SRC:UC Neutrophils 50 % [facility] A courtesy copy of this report has been sent to [phone], the patient SRC:UC Monocytes/100 leukocytes in Blood by Automated count 9 % [facility] A courtesy copy of this report has been sent to [phone], the patient SRC:UC Eosinophils/100 leukocytes in Blood by Automated count 4 % [facility] A courtesy copy of this report has been sent to [phone], the patient SRC:UC Immature cells [#/volume] in Blood Laboratory test result [facility] A courtesy copy of this report has been sent to [phone], the patient SRC:UC Basophils/100 leukocytes in Blood by Automated count 1 % [facility] A courtesy copy of this report has been sent to [phone], the patient SRC:UC Lymphocytes [#/volume] in Blood 2.1 x10E3/uL 0.7-3.1 [facility] A courtesy copy of this report has been sent to [phone], the patient SRC:UC Neutrophils [#/volume] in Blood by Automated count 3.0 x10E3/uL 1.4-7 .0 [facility] A courtesy copy of this report has been sent to [phone], the patient SRC:UC Eosinophils [#/volume] in Blood by Automated count 0.2 x10E3/uL 0.0-0 .4 [facility] A courtesy copy of this report has been sent to [phone], the patient SRC:UC Monocytes [#/volume] in Blood 0.5 x10E3/uL 0.1-0.9 [facility] A courtesy copy of this report has been sent to [phone], the patient SRC:UC Basophils [#/volume] in Blood by Automated count 0.0 x10E3/uL 0.0-0.2 [facility] A courtesy copy of this report has been sent to [phone], the patient SRC:UC Immature granulocytes/100 leukocytes in Blood by Automated count 0 % [facility] A courtesy copy of this report has been sent to [phone], the patient SRC:UC Nucleated erythrocytes/100 leukocytes [Ratio] in Blood by Automated count Laboratory test result [facility] A courtesy copy of this report has been sent to [phone], the patient SRC:UC Immature granulocytes [#/volume] in Blood by Automated count 0.0 x10E3/uL 0.0-0.1 [facility] A courtesy copy of this report has been sent to [phone], the patient SRC:UC Morphology [Interpretation] in Blood Narrative Laboratory test result [facility] A courtesy copy of this report has been sent to [phone], the patient SRC:UC ID Date Data Source [id number] 10/05/2020 03:05:00 AM EST [facility] Name Value Range Interpretation Code Description Data Hazel rce(s) Supporting Document(s) WBC 5.8 x10E3/uL 3.4-10.8 [facility] RBC 4.51 x10E6/uL 3.77-5.28 [facility] Hemoglobin 13.9 g/dL 11.1-15.9 [facility] Hematocrit 40.8 % 34.0-46.6 [facility] MCV 91 fL 79-97 [facility] MCH 30.8 pg 26.6-33.0 [facility] MCHC 34.1 g/dL 31.5-35.7 [facility] RDW 12.1 % 11.7-15.4 [facility] Platelets 164 x10E3/uL 150-450 [facility] Neutrophils 50 % Not Estab. [facility] Lymphs 36 % Not Estab. [facility] Monocytes 9 % Not Estab. [facility] Eos 4 % Not Estab. [facility] Basos 1 % Not Estab. [facility] Neutrophils (Absolute) 3.0 x10E3/uL 1.4-7.0 [facility] Lymphs (Absolute) 2.1 x10E3/uL 0.7-3.1 [facility] Monocytes(Absolute) 0.5 x10E3/uL 0.1-0.9 [facility] Eos (Absolute) 0.2 x10E3/uL 0.0-0.4 [facility] Baso (Absolute) 0.0 x10E3/uL 0.0-0.2 [facility] Immature Granulocytes 0 % Not Estab. [facility] Immature Grans (Abs) 0.0 x10E3/uL 0.0-0.1 [facility] ID Date Data Source [id number] 10/05/2020 04:05:00 AM EST [facility] Name Value Range Interpretation Code Description Data Hazel rce(s) Supporting Document(s) Glucose 80 mg/dL 65-99 [facility] BUN 9 mg/dL 6-24 [facility] Creatinine 0.77 mg/dL 0.57-1.00 [facility] eGFR If NonAfricn Am 95 mL/min/1.73 >59 [facility] eGFR If Africn Am 109 mL/min/1.73 >59 [facility] BUN/Creatinine Ratio 12 9-23 [facility] Sodium 137 mmol/L 134-144 [facility] Potassium 4.3 mmol/L 3.5-5.2 [facility] Chloride 102 mmol/L 96-106 [facility] Carbon Dioxide, Total 23 mmol/L 20-29 [facility] Calcium 9.3 mg/dL 8.7-10.2 [facility] Protein, Total 7.3 g/dL 6.0-8.5 [facility] Albumin 4.3 g/dL 3.8-4.8 [facility] Globulin, Total 3.0 g/dL 1.5-4.5 [facility] A/G Ratio 1.4 1.2-2.2 [facility] Bilirubin, Total 0.4 mg/dL 0.0-1.2 [facility] Alkaline Phosphatase 51 IU/L 39-117 [facility] AST (SGOT) 15 IU/L 0-40 [facility] ALT (SGPT) 9 IU/L 0-32 [facility] ID Date Data Source [id number] 10/05/2020 05:05:00 AM EST [facility] Name Value Range Interpretation Code Description Data Hazel rce(s) Supporting Document(s) Specific [place] 1.008 1.005-1.030 [facility] pH 7.5 5.0-7.5 [facility] Urine-Color Yellow Yellow [facility] Appearance Clear Clear [facility] WBC Esterase Negative Negative [facility] Protein Negative Negative/Trace [facility] Glucose Negative Negative [facility] Ketones Negative Negative [facility] Occult Blood Negative Negative [facility] Bilirubin Negative Negative [facility] Urobilinogen,Semi-Qn 0.2 mg/dL 0.2-1.0 [facility] Nitrite, Urine Negative Negative [facility] Microscopic Examination [facility] Microscopic follows if indicated. ID Date Data Source [id number] 10/05/2020 11:05:00 PM EST [facility] Name Value Range Interpretation Code Description Data Hazel rce(s) Supporting Document(s) Urine Culture, Routine Final report [facility] ID Date Data Source [id number] 10/05/2020 03:05:00 AM EST [facility] Name Value Range Interpretation Code Description Data Hazel rce(s) Supporting Document(s) Lor Ling CMP14 Default Lab [facility] A hand-written panel/profile was receive d from your office. Inaccordance with the [facility] Ambiguous Test Code Policy dated March2003, we have completed your order by using the closest currentlyor formerly recognized AMA panel. We have assigned ComprehensiveMetabolic Panel (14), Test Code #536080 to this request. If thisis not the testing you wished to receive on this specimen, pleasecontact the [facility] Client Inquiry/Technical Services Departmentto clarify the test order. We appreciate your business. ID Date Data Source [id number] 10/05/2020 11:05:00 PM EST [facility] Name Value Range Interpretation Code Description Data Hazel rce(s) Supporting Document(s) Result 1 No growth [facility] ID Date Data Source [id number] 10/02/2020 04:14:00 PM EST [facility] Name Value Range Interpretation Code Description Data Hazel rce(s) Supporting Document(s) Electrocardiogram Laboratory test result [facility] ID Date Data Source [id number] 09/07/2020 08:57:00 AM EST [facility] Name Value Range Interpretation Code Description Data Hazel rce(s) Supporting Document(s) Thyroid Stimulating Hormone 0.994 uIU/ML 0.358-3.740 [facility] Free T4 0.95 ng/dL 0.76-1.46 [facility] ([facility] ID Date Data Source [id number] 09/07/2020 08:57:00 AM EST [facility] Name Value Range Interpretation Code Description Data Hazel rce(s) Supporting Document(s) HDL Cholesterol 61 mg/dL [facility] Cholesterol Level 238 mg/dL [facility] Triglycerides Level 52 mg/dL [facility] Cholesterol Risk Ratio 3.901 [facility] Non-HDL-C 177 mg/dL [facility] LDL Cholesterol 167 mg/dL [facility] ID Date Data Source [id number] 09/07/2020 08:57:00 AM EST [facility] Name Value Range Interpretation Code Description Data Hazel rce(s) Supporting Document(s) Blood Urea Nitrogen 12 mg/dL 7-18 [facility] Glucose, Fasting 88 mg/dL 70-100 [facility] Creatinine For GFR 0.74 mg/dL 0.55-1.30 [facility] Sodium Level 136 meq/L 136-145 [facility] Potassium Serum 5.0 meq/L 3.5-5.1 [facility] Glomerular Filtration Rate Laboratory test result [facility] <content>Units are mL/min/1.73 m2</content>
<content></content>
<content>Chronic Kidney Disease Staging per NKF:</content>
<content></content>
<content>Stage I & II GFR >=60 Normal to Mildly Decreased</content>
<content>Stage III GFR 30- 59 Moderately Decreased</content>
<content>Stage IV GFR 15-29 Severely Decreased</content>
<content>Stage V GFR <15 Very Little GFR Left</content>
<content>ESRD GFR <15 on [employer]</content>
<content></content> Carbon Dioxide Level 25 meq/L 21-32 [facility] Anion Gap 4 meq/L 8-16 [facility] Chloride Level 107 meq/L 98-107 [facility] Ast/Sgot 15 U/L 7-37 [facility] Alt/SGPT 16 U/L 12-78 [facility] Calcium Level 9.0 mg/dL 8.5-10.1 [facility] Bilirubin,Total 0.4 mg/dL 0.2-1.0 [facility] Alkaline Phosphatase 50 U/L 45-117 [facility] Total Protein 7.3 GM/DL 6.4-8.2 [facility] Albumin/Globulin Ratio 1.1 1.2-2.2 [facility] Albumin 3.9 GM/DL 3.2-5.2 [facility] ID Date Data Source [id number] 03/27/2020 12:00:00 AM EDT [facility] Jay Mast Np Patient Name: LINDSAY NOBLE [address] [place] [address] Date [place] : 1975[place] [address] Date of Exam: 03/27/2020PH#: Fax: [phone] EXAM: MRI CERVICAL SPINE WITHOUT CONTRASTPROCEDURE INFORMATION:Exam: MR Cervical Spine Without ContrastExam date and time: 03/27/2020 5:34 PM Age: 44 years oldClinical indication: Cervicalgia; Patient HX: Neck pain bilat arm numbnessand painTECHNIQUE: Imaging protocol: Multiplanar magnetic resonance images of thecervical spine without contrast.COMPARISON: No relevant prior studies available.FINDINGS:Vertebrae: There is straightening of the cervical spine. This isnonspecific but may be seen in the setting of cervical muscle spasm, pleasecorrelate clinically.Spinal cord: Normal signal. No cord compression.C2-C3: No significant disc disease. No significant spinal stenosis.C3-C4: No significant disc disease. No significant spinal stenosis.C4- C5: No significant disc disease. No significant spinal stenosis.C5-C6: No significant disc disease. No significant spinal stenosis.C6-C7: No significant disc disease. No significant spinal stenosis.C7-T1: No significant disc disease. No significant spinal stenosis.Vertebral arteries: Expected flow voids in the vertebral arteries.Soft tissues: Unremarkable.IMPRESSION: There is straightening of the cervical spine. This isnonspecific but may be seen in the setting of cervical muscle spasm, pleasecorrelate clinically.Thank you for allowing us to participate in the care of your patient.Dictated and Authenticated by: Ki Vizcarra MD 03/28/2020 8:12 AM [facility] ( & Arti)VradV/jmcTfarshad you for referring LINDSAY NOBLE to our office. Electronically Signed - [facility] 03/28/20 8:34 Name Value Range Interpretation Code Description Data Hazel rce(s) Supporting Document(s) ID Date Data Source [id number] 03/19/2020 09:30:00 AM EDT [facility] Name Value Range Interpretation Code Description Data Hazel rce(s) Supporting Document(s) SARS coronavirus 2 RNA [facility] This lab was ordered by [facility] and reported by [facility]. ID Date Data Source [id number] 03/15/2020 09:39:22 AM EDT [facility], PCName: Faby NobleB: 1975Provider: Chika Mast: 03/14/2020 Chief ComplaintChronic cervical pain. Chief Complaint 2Chronic lumbar pain. NYSW VAS PAIN Established: MA completing section: hpowell History of Present IllnessRecent test/procedures: Patient was asked and denies having any tests since their last visit. Patient was asked and denies being seen by any Physicians since their last visit. The patient was last seen by a [facility] provider on 01/03/2020. At today's visit patient presents with their Self Patient is currently working. The patient is being seen for a follow-up. The date of onset of symptoms is approximately 1 yrs. Pain Quality: (Neuropathic) tingling Pain Quality: (Nociceptive) aching Progression: unchanged Pain Score: a current pain level of 5/10. Condition type: The patient is being seen for a chronic condition. PAIN LOCATION: the pain is located in the neck, the pain is located in the low back and radiates to the right hip, left hip, right thigh, left thigh, right knee and left knee. RELATIONSHIP TO INJURY: This condition is not related to a specific injury. PAST EVALUATION: The patient has been previously evaluated by a Chiropractor. REVIEW OF PAST DIAGNOSTICS: have included: MRI. PAST TREATMENT has included: MANIPULATION/CHIROPRACTIC treatment (not effective) . Yoga, PIYO (effective). - Nerve Block: Pertinent Information LUMBAR, INTERLAMINAR (STEROID INJECTION). Targeting the L4 L5 level . (08/30/19 - Dr. Gramajo) 80 % of pain relief was provided lasting for 2-3 month(s). INTERVAL EVENTS: include . Patient was sent to physical therapy following her normal EMG study. She states this made her pain worse. ASSOCIATED SYMPTOMS: include radiating, but no fecal incontinence and no urinary incontinence. Review of SystemsConstitutional: Normal. Eyes: Normal. ENT: normal. Cardiovascular: Normal. Respiratory: Normal. Gastrointestinal: Normal. Genitourinary: Normal. Musculoskeletal: neck pain and lower back pain. Integumentary: Normal. Neurological: Normal. Psychiatric: Normal. Endocrine: Normal. Hematologic/Lymphatic: Normal. Active Problems 1. Back pain, thoracic (724.1) (M54.6) 2. Bulging lumbar disc (722.10) (M51.26) 3. Cervical radiculopathy (723.4) (M54.12) 4. Chronic low back pain (724.2,338.29) (M54.5,G89.29) 5. Lumbar radiculopathy (724.4) (M54.16) Allergies No Known Drug Allergies Recorded By: Cholo Shankar; 08/04/2019 12:59:19 PMDenied Adhesive Tape Recorded By: Cholo Shankar; 08/04/2019 12:59:19 PM Iodinated Contrast Media Recorded By: Cholo Shankar; 08/04/2019 12:59:19 PM Latex Recorded By: Cholo Shankar; 08/04/2019 12:59:19 PM Current Meds Meloxicam 15 MG Oral Tablet; TAKE 1 TABLET DAILY WITH FOOD. MDD:1;Therapy: 29Sep2019 to (Evaluate:[id number]) Requested for: 29Nov2019; LastRx:29Nov2019 Ordered Past Medical History Denied: History of anticoagulant therapy Denied: History of coagulation defect History of psoriatic arthritis (V13.4) (Z87.2) Surgical Hist ory Denied: History of Cardioverter defibrillator insertion History of Cholecystectomy History of Hysterectomy Denied: History of Permanent pacemaker insertion Family History Family history of arthritis (V17.7) (Z82.61) Family history of lung cancer (V16.1) (Z80.1) Family history of malignant neoplasm of bone (V16.8) (Z80.8) Family history of hypertension (V17.49) (Z82.49) Family history of hypertension (V17.49) (Z82.49) Family history of hypertension (V17.49) (Z82.49) Family history of malignant neoplasm (V16.9) (Z80.9) Family history of cardiac disorder (V17.49) (Z82.49) Family history of hypertension (V17.49) (Z82.49) Family history of malignant neoplasm (V16.9) (Z80.9) Social History Full-time employment Never a smoker No illicit drug use Occasional alcohol use VitalsVital Signs Recorded: [id number] 10:47AM Height: 5 ft 1 inWeight: 158 lb BMI Calculated: 29.85BSA Calculated: 1.71Systolic: 113, SittingDiastolic: 75, SittingHeart Rate: 86Pulse Quality: NormalRespiration: 16Temperature: 98.4 F, TympanicHeight measured w/wo shoes: w/shoesPain Scale: 5 Physical ExamGeneral: The patient is a well nourished/well developed, female, with a medium build, who is in no acute distress and appears stated age. Eyes: Lids are atraumatic, no lesions, sclerae are anicteric. Ears, Nose, Mouth, Throat: external ears and nose without trauma. Respiratory: Normal chest expansion and respiratory effort. Gait and Station: Gait was normal. Lungs are clear to auscultation bilaterally Cardiovascular: Extremities without peripheral edema, auscultation of heart reveals S1, S2 regular rate and rhythm, without murmur.Cervical Spine: - Inspection: No deformity, ecchymosis, erythema or swelling noted. Symmetrical, normal lordosis. - Palpation/Tenderness: No trapezius, paracervical or greater occipital tenderness. - ROM:. 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 Skin: Warm, dry, acyanotic. Psychological: Alert and oriented to person, place and time. Mood and affect are pleasant and appropriate. Judgement intact. Insight normal without delusions or hallucinations. Denies suicidal/homicidal ideation. Assessment 1. Cervical radiculopathy (723.4) (M54.12) 2. Chronic low back pain (724.2,338.29) (M54.5,G89.29) Plan 1. MRI ([facility]) Referral Treatment Treatment Status: Hold For - Scheduling Requested for: [id number] Patient have SCS...? : NoFront Desk Reminder: : Schedule FMRI within 7 days with ORDERING providerIs this to rule out a mass? : NoHas the patient had Lumbar surgery? : NoContrast : Without ContrastRequest Type : Private (No Auth needed)MRI Reminder : Ins may require pa tient to have 4-6 wks of recent/documented PT on body partMRI Body Part : C- SpineIs this for a MILD MRI...? : No Medication:. NSAIDS Prescribed: MELOXICAM . NSAIDS: I advised the patient today/previously regarding treatment with the above NSAIDS. Patient denies history of and is aware of rare but serious risk of kidney, cardiovascular, and gastrointestinal complications. Treatment includes: DIAGNOSTIC STUDIES: Based on patients symptoms and physical exam findings, I am ordering the following diagnostic tests: - MRI: I am ordering a BASELINE MRI, of the CERVICAL SPINE. FOLLOW UP: The patient should have a follow up visit after MRI. Discussion/SummaryPleasant 44-year-old female patient with chronic cervical and lumbar pain. She continues to struggle with her cervical pain and intermittent tingling into the hands bilaterally. She underwent a nerve conduction study which was normal. She was referred to physical therapy because of her symptoms and the normal EMG. Dr. Figueroa also suggested that many of her symptoms may be the result of large breasts and she may benefit from a reduction surgery. The patient states that she attended PT but this caused her symptoms to worsen to the point where PT instructed her to stop and return to our office. She states that they told her they feel she has some type of impingement syndrome causing her symptoms. I will order a cervical MRI to rule out any cause of her symptoms that may not have been picked up on the nerve conduction study. If her MRI is completely normal, we will focus on myofascial pain and possible referral to surgeon for consideration of breast reduction surgery. No other changes made today. Patient will follow-up after MRI to review the results and discuss treatment options going forward. Vendly DisclaimerNYSWC Vendly Disclaimer: This document was dictated and electronically signed using WorkshopLive Speaking software. A reasonable attempt at proof reading has been made to minimize errors. Please call with any questions. Signatures Electronically signed by : Jay Mast NP; Mar 14 2020 11:07AM EST (Author) Electronically signed by : Zac Nunn MD; Mar 15 2020 9:39AM EST Name Value Range Interpretation Code Description Data Hazel rce(s) Supporting Document(s) ID Date Data Source [id number] 12/28/2019 01:25:18 PM EDT [facility], PCName: Faby franz VossDOB: 1975Provider: Chika Mast: 11/29/2019 Chief ComplaintBack and leg pain Chief Complaint 2NYSW VAS PAIN Established: TIMOTHY completing section: [facility] Telemedicine - Explanation to patient regarding Telemedicine: Explanation to patient regarding telemedicine Patient initiated contact with the office via phone call or via patient portal to schedule a Telehealth visit. I explained to the patient that telemedicine is the practice of using telecommunications technology to evaluate, diagnose and care for patients at a distance. Telehealth visits are a way for [facility] to continue providing quality care to our patients while still practicing mandated social distancing, in emergency effort to keep both the patient and myself safe throughout the COVID-19 pandemic. During this emergent initiation of Telemedicine, the office of civil rights has loosened the laws on HIPAA compliance to accommodate the continuation of medical care across the [place] oughout the COVID-19 pandemic. [facility] Telemedicine - TV Consent Established: Telehealth Consent Lindsay Noble is an established patient of [facility], and was made aware co-pays and co-insurance are waived due to COVID-19, as well as, the potential privacy risks with the use of third-green party applications as a result of this Telehealth visit. The patient has verbalized consent to proceed with a Telehealth visit via audio with live video calling. History of Present IllnessThe patient is being seen for Video call Pain Duration: years Pain Quality: pinching. Pain Quality: (Neuropathic) burning and tingling Pain Quality: (Nociceptive) aching Progression: unchanged Pain Score: a current pain level of 7/10, a minimum pain level of 7/10 and a maximum pain level of 7/10. Condition type: The patient is being seen for a chronic condition. PAIN LOCATION: the pain is located in the low back and radiates to the right hip, left hip, right thigh, left thigh, right knee and left knee. RELATIONSHIP TO IN JURY: This condition is not related to a specific injury. PAST EVALUATION: The patient has been previously evaluated by a Chiropractor. REVIEW OF PAST DIAGNOSTICS: have included: MRI. PAST TREATMENT has included: MANIPULATION/CHIROPRACTIC treatment (not effective) . Yoga, PIYO (effective). - Nerve Block: Pertinent Information LUMBAR, INTERLAMINAR (STEROID INJECTION). Targeting the L4 L5 level . (08/30/19 - Dr. Gramajo) 80 % of pain relief was provided lasting for 2-3 month(s). ASSOCIATED SYMPTOMS: include radiating, but no fecal incontinence and no urinary incontinence. Review of SystemsROS was reviewed with patient; I feel the ROS to be negative/normal other than Musculoskeletal. Active Problems 1. Back pain, thoracic (724.1) (M54.6) 2. Bulging lumbar disc (722.10) (M51.26) 3. Chronic low back pain (724.2,338.29) (M54.5,G89.29) 4. Lumbar radiculopathy (724.4) (M54.16) Allergies No Known Drug Allergies Recorded By: Cholo Shankar; 08/04/2019 12:59:19 PMDenied Adhesive Tape Recorded By: Cholo Shankar; 08/04/2019 12:59:19 PM Iodinated Contrast Media Recorded By: Cholo Shankar; 08/04/2019 12:59:19 PM Latex Recorded By: Cholo Shankar; 08/04/2019 12:59:19 PM Current Meds Meloxicam 15 MG Oral Tablet; TAKE 1 TABLET DAILY WITH FOOD. MDD:1;Therapy: 29Sep2019 to (Evaluate:[id number]) Requested for: 29Sep2019; LastRx:29Sep2019 Ordered Past Medical History Denied: History of anticoagulant therapy Denied: History of coagulation defect History of psoriatic arthritis (V13.4) (Z87.2) Surgical History Denied: History of Cardioverter defibrillator insertion History of Cholecystectomy History of Hysterectomy Denied: History of Permanent pacemaker insertion Family History Family history of arthritis (V17.7) (Z82.61) Family history of lung cancer (V16.1) (Z80.1) Family history of malignant neoplasm of bone (V16.8) (Z80.8) Family history of hypertension (V17.49) (Z82.49) Family history of hypertension (V17.49) (Z82.49) Family history of hypertension (V17.49) (Z82.49) Family history of malignant neoplasm (V16.9) (Z80.9) Family history of cardiac disorder (V17.49) (Z82.49) Family history of hypertension (V17.49) (Z82.49) Family history of malignant neoplasm (V16.9) (Z80.9) Social History Full-time employment Never a smoker No illicit drug use Occasional alcohol use Physical ExamGeneral: The patient is a well nourished/well developed, female, with a medium build, who is in no acute distress and appears stated age. Psychological: Alert and oriented to person, place and time. Mood and affect are pleasant and appropriate. Judgement intact. Insight normal without delusions or hallucinations. Denies suicidal/homicidal ideation. Assessment 1. Cervical radiculopathy (723.4) (M54.12) 2. Chronic low back pain (724.2,338.29) (M54.5,G89.29) 3. Lumbar radiculopathy (724.4) (M54.16) Plan 1. Renew: Meloxicam 15 MG Oral Tablet; TAKE 1 TABLET DAILY WITH FOOD. MDD:1 2. Block (Thoracic/Lumbar Interlaminar) ([facility]) Referral Procedure Procedure Status: Complete Done: [id number] Type : Private (No Auth needed)Is patient currently on a biologic? : NoIs your patient taking aspirin for cardiac or stroke prevention...? : NoIs patient taking Aspirin > 81 mg...? : NoIs your patient on an Anticoagulant -OR- have Coagulopathy...? : NoSedation : NoArea: : LumbarBlock : Interlaminar (Epidural)Professional Medart Operator needed for block? : NoFront Desk Reminder: : Schedule the Status Post BlockPt weight: SODS: </= 450 lbs. HODS: </= 400 lbs. ENTER WEIGHT: : 157IF PT has Thrombocytopenia are platelets >/= 100,000 ? : NAAre you ordering pyhsical therapy...? : NoDoes patient require a Chirag lift? : NoIs this an urgent request? : No - This is not an urgent request 3. EMG ([facility]) Referral Diagnostic Diagnostic Status: Complete Done: [id number] - Schedule FUP : N/A - already placed another type of FUP orderSide : BilateralEMG Extremity : Upper ExtremityRequest Type : Private (No Auth needed) Medication:. NSAIDS Prescribed: MELOXICAM . NSAIDS: I advised the patient today/previously regarding treatment with the above NSAIDS. Patient denies history of and is aware of rare but serious risk of kidney, cardiovascular, and gastrointestinal complications. Medication list was reviewed with the patient, and updates were made to reflect her current medication regimen. Allergy list was reviewed with patient, and any necessary changes were made. Treatment includes: PROCEDURE(S): - Nerve Block Plan: I am ordering a, LUMBAR, INTERLAMINAR (STEROID INJECTION). Definitive levels to be determined by the interventional physician based on fluoroscopic imaging and symptomatology at the time of the procedure. This procedure is , targeting the L4 L5 level and under fluoroscopy without sedation. NERVE BLOCK: The material risks, benefits, alternatives have been discussed with the patient, including no treatment. They include, but are not limited to, bleeding, bruising, infection, damage to targeted and non-targeted tissue, increased pain, nerve injury or other reaction, if severe, could lead to CVA, arrhythmias or . The patient was given procedure instructions and educational material for this specific procedure at the time of the visit.- Bleeding Disorder: Patient denies having a bleeding disorder. - Anticoagulation therapy:. Patient denies current treatment with anti-coagulation therapy. EMG-NERVE CONDUCTION STUDY UPPER EXTREMITY: BILATERAL. This test is being ordered due to patient experiencing pain, numbness, weakness and tingling. CONTINUE TREATMENT: Lindsay will continue with the following:. Lindsay is participating in a home exercise program and is encouraged to continue. TIme:. Time: Start time: 1:39 P.M. End time: 1:37. P.M. Discussion/SummaryPleasant 44-year-old female patient with chronic lumbar pain. Today's visit was conducted over a video conference (via [employer]) call due to the coronavirus pandemic. The patient reports new symptoms of pain in the shoulders and arms bilaterally as well as tingling down the arms. She also notes that her low back pain and radicular symptoms into the lower extremities have returned since her last nerve block. The pain is worse at night. She states that she tried massage therapy after our last visit and my suggestion and she states it did not help with the pain at all. Walking her dog hurts her. Given the new symptoms of tingling into the arms and shoulders, I would like to set her up for a nerve conduction study to further investigate these symptoms. If warranted, based on the results of the EMG, a cervical MRI may be needed. In regards to her lower back and radicular symptoms, I will repeat her last lumbar intralaminar nerve block without sedation as she appreciated good relief from this injection previously. Patient will follow up 4 weeks post block. Vendly DisclaimerNYJD [facility] [place] Vendly Disclaimer: This document was dictated and electronically signed using Vendly Naturally Speaking software. A reasonable attempt at proof reading has been made to minimize errors. Please call with any questions. Signatures Electronically signed by : Jay Mast NP; Nov 29 2019 1:57PM EST (Author) Electronically signed by : Aravind Gramajo MD; Nov 29 2019 3:07PM EST Electronically signed by : Jay Mast NP; Dec 27 2019 6:15PM EST (Author) Electronically signed by : Aravind Gramajo MD; Dec 28 2019 1:25PM EST Name Value Range Interpretation Code Description Data Hazel rce(s) Supporting Document(s) ID Date Data Source [id number] 09/29/2019 02:45:38 PM EST [facility], PCName: Faby franz VosaraDOB: 1975Provider: Chika Mast: 09/29/2019 Chief ComplaintBack and leg pain Chief Complaint 2NYSW VAS PAIN Established: [place] completing section: [employer] History of Present IllnessRecent test/procedures: Patient was asked and denies having any tests since their last visit. Patient was asked and denies being seen by any Physicians since their last visit. At today's visit patient presents with their Self Patient is currently working. The patient is being seen for a post block examination. Pain Duration: 1 year Pain Quality: (Neuropathic) pins and needles Pain Quality: (Nociceptive) aching, dull, sharp and stabbing Timing: constant Progression: unchanged Palliation: stretching Exacerbating: exercise, sitting and standing Pain Score: a current pain level of 7/10, a minimum pain level of 3/10 and a maximum pain level of 9/10. Condition type: The patient is being seen for a chronic condition. PAIN LOCATION: the pain is located in the low back and radiates to the right hip, left hip, right thigh, left thigh, right knee and left knee. RELATIONSHIP TO INJURY: This condition is not related to a specific injury. PAST EVALUATION: The patient has been previously evaluated by a Chiropractor . Provider records were obtained, reviewed and on file. REVIEW OF PAST DIAGNOSTICS: have included: MRI . Records were obtained, reviewed and on file. PAST TREATMENT has included: MANIPULATION/CHIROPRACTIC treatment (not effective) . Yoga, PIYO (effective). - Nerve Block: Pertinent Information LUMBAR, INTERLAMINAR (STEROID INJECTION). Targeting the L4 L5 level . (08/30/19 - Dr. Gramajo) 80 % of pain relief was provided which is ongoing., The block helped her pain going down her legs, but did not help her lumbar pain nor thoracic back pain. ASSOCIATED SYMPTOMS: include radiating, but no fecal incontinence and no urinary incontinence. Review of SystemsROS was reviewed with patient; documented on established patient questionnaire dated 09/29/2019. I feel the ROS to be negative/normal other than Musculoskeletal. Patient maintains at today's visit there has been no change in his/her hematologic history. Active Problems 1. Bulging lumbar disc (722.10) (M51.26) 2. Chronic low back pain (724.2,338.29) (M54.5,G89.29) 3. Lumbar radiculopathy (724.4) (M54.16) Allergies No Known Drug Allergies Recorded By: Cholo Shankar; 08/04/2019 12:59:19 PMDenied Adhesive Tape Recorded By: Cholo Shankar; 08/04/2019 12:59:19 PM Iodinated Contrast Media Recorded By: Cholo Shankar; 08/04/2019 12:59:19 PM Latex Recorded By: Cholo Shankar; 08/04/2019 12:59:19 PM Current Meds No Reported Medications Recorded Past Medical History Denied: History of anticoagulant therapy Denied: History of coagulation defect History of psoriatic arthritis (V13.4) (Z87.2) Surgical History Denied: History of Cardioverter defibrillator insertion History of Cholecystectomy History of Hysterectomy Denied: History of Permanent pacemaker insertion Family History Family history of arthritis (V17.7) (Z82.61) Family history of lung cancer (V16.1) (Z80.1) Family history of malignant neoplasm of bone (V16.8) (Z80.8) Family history of hypertension (V17.49) (Z82.49) Family history of hypertension (V17.49) (Z82.49) Family history of hypertension (V17.49) (Z82.49) Family history of malignant neoplasm (V16.9) (Z80.9) Family history of cardiac disorder (V17.49) (Z82.49) Family history of hypertension (V17.49) (Z82.49) Family history of malignant neoplasm (V16.9) (Z80.9) Social History Full-time employment Never a smoker No illicit drug use Occasional alcohol use VitalsVital Signs Recorded: 29Sep2019 01:21PM Height: 5 ft 1.5 inWeight: 157 lb BMI Calculated: 29.18BSA Calculated: 1.71Systolic: 98, SittingDiastolic: 69, SittingHeart Rate: 89Respiration: 16Temperature: 98 F, TympanicHeight measured w/wo shoes: w/shoesPain Scale: 7 Physical ExamGeneral: The patient is a well nourished/well developed, female, with a medium build, who is in no acute distress and appears stated age. Eyes: Lids are atraumatic, no lesions, sclerae are anicteric. Ears, Nose, Mouth, Throat: external ears and nose without trauma. Gait and Station: Gait was normal. Respiratory: Normal chest expansion and respiratory effort. Thoracic Spine:Inspection:Palpation/Tenderness: Palpatory Findings include. The following trigger points were noted: of the paraspinal muscle.ROM:. Skin: Warm, dry, acyanotic. Psychological: Alert and oriented to person, place and time. Mood and affect are pleasant and appropriate. Judgement intact. Insight normal without delusions or hallucinations. Denies suicidal/homicidal ideation. Assessment 1. Chronic low back pain (724.2,338.29) (M54.5,G89.29) 2. Lumbar radiculopathy (724.4) (M54.16) 3. Back pain, thoracic (724.1) (M54.6) Plan 1. Start: Meloxicam 15 MG Oral Tablet; TAKE 1 TABLET DAILY WITH FOOD. MDD:1 2. Follow-up in 2 months Follow Up Follow-up Status: Hold For - Scheduling Requested for: [id number] Appointment for 15 or 30 minutes : Schedule 15 minute appointment Medication:. Samples Given: ZTLIDO PATCH . SAMPLE(S) of MEDICATION: The above samples were given to the patient today. Directions and side effects were discussed with the patient and the patient was instructed to call the office if any problems occur.NSAIDS Prescribed: MELOXICAM . NSAIDS: I advised the patient today/previously regarding treatment with the above NSAIDS. Patient denies history of and is aware of rare but serious risk of kidney, cardiovascular, and gastrointestinal complications. Treatment includes: FOLLOW UP: The patient should have a follow up visit in 2 months. CONTINUE TREATMENT: Lindsay will continue with the following:. Patient will follow up with their PCP. Discussion/SummaryPleasant 44-year-old female patient with chronic lumbar pain. She reports that all of her radicular symptoms into her legs have resolved since her lumbar intralaminar nerve block. Today, she reports pain of the lumbar region going up to her thoracic region. This pain presents as myofascial in nature today. I will start meloxicam 15 mg once daily as needed for this pain. I also discussed conservative measures of treating myofascial p ain including but not limited to heat, gentle stretching, and massage. I have also provided the patient with samples of lidocaine patches to try. She will follow up in 2 months time, sooner if needed. Vendly DisclaimerNYSWC Vendly Disclaimer: This document was dictated and electronically signed using WorkshopLive Speaking software. A reasonable attempt at proof reading has been made to minimize errors. Please call with any questions. Signatures Electronically signed by : Jay Mast NP; Sep 29 2019 1:53PM EST (Author) Electronically signed by : Kwabena Leach MD; Sep 29 2019 2:45PM EST Name Value Range Interpretation Code Description Data Hazel rce(s) Supporting Document(s) ID Date Data Source [id number] 08/21/2019 03:05:00 AM EST [facility] Name Value Range Interpretation Code Description Data Hazel rce(s) Supporting Document(s) WBC 5.2 x10E3/uL 3.4-10.8 [facility] RBC 4.39 x10E6/uL 3.77-5.28 [facility] Hemoglobin 13.6 g/dL 11.1-15.9 [facility] Hematocrit 39.3 % 34.0-46.6 [facility] MCV 90 fL 79-97 [facility] MCH 31.0 pg 26.6-33.0 [facility] MCHC 34.6 g/dL 31.5-35.7 [facility] RDW 12.8 % 12.3-15.4 [facility] Effective September 06, 2019, the RDW ped iatric reference interval will be removed and the adult reference interval will be changing to: Female 11.7 - 15.4 Male 11.6 - 15.4 Platelets 175 x10E3/uL 150-450 [facility] Neutrophils 54 % Not Estab. [facility] Lymphs 36 % Not Estab. [facility] Monocytes 7 % Not Estab. [facility] Eos 3 % Not Estab. [facility] Basos 0 % Not Estab. [facility] Neutrophils (Absolute) 2.8 x10E3/uL 1.4-7.0 [facility] Lymphs (Absolute) 1.9 x10E3/uL 0.7-3.1 [facility] Monocytes(Absolute) 0.4 x10E3/uL 0.1-0.9 [facility] Eos (Absolute) 0.2 x10E3/uL 0.0-0.4 [facility] Baso (Absolute) 0.0 x10E3/uL 0.0-0.2 [facility] Immature Granulocytes 0 % Not Estab. [facility] Immature Grans (Abs) 0.0 x10E3/uL 0.0-0.1 [facility] ID Date Data Source [id number] 08/21/2019 04:05:00 AM EST [facility] Name Value Range Interpretation Code Description Data Hazel rce(s) Supporting Document(s) Glucose 85 mg/dL 65-99 [facility] BUN 11 mg/dL 6-24 [facility] Creatinine 0.65 mg/dL 0.57-1.00 [facility] eGFR If NonAfricn Am 110 mL/min/1.73 >59 [facility] eGFR If Africn Am 127 mL/min/1.73 >59 [facility] BUN/Creatinine Ratio 17 9-23 [facility] Sodium 138 mmol/L 134-144 [facility] Potassium 4.5 mmol/L 3.5-5.2 [facility] Chloride 101 mmol/L 96-106 [facility] Carbon Dioxide, Total 23 mmol/L 20-29 [facility] Calcium 9.6 mg/dL 8.7-10.2 [facility] Protein, Total 7.3 g/dL 6.0-8.5 [facility] Albumin 4.7 g/dL 3.5-5.5 [facility] Globulin, Total 2.6 g/dL 1.5-4.5 [facility] A/G Ratio 1.8 1.2-2.2 [facility] Bilirubin, Total 0.4 mg/dL 0.0-1.2 [facility] Alkaline Phosphatase 46 IU/L 39-117 [facility] AST (SGOT) 16 IU/L 0-40 [facility] ALT (SGPT) 8 IU/L 0-32 [facility] ID Date Data Source [id number] 08/21/2019 05:05:00 AM EST [facility] Name Value Range Interpretation Code Description Data Hazel rce(s) Supporting Document(s) TSH 0.983 uIU/mL 0.450-4.500 [facility] ID Date Data Source [id number] 08/21/2019 04:05:00 AM EST [facility] Name Value Range Interpretation Code Description Data Hazel rce(s) Supporting Document(s) Cholesterol, Total 228 mg/dL 100-199 Above high normal [facility] Triglycerides 49 mg/dL 0-149 [facility] HDL Cholesterol 64 mg/dL >39 [facility] VLDL Cholesterol Fuad 10 mg/dL 5-40 [facility] LDL Cholesterol Calc 154 mg/dL 0-99 Above high normal [facility] Procedure Social History Code Duration Value Status Description Data Source(s ) Smoking 10/02/2020 12:00:00 AM EST Patient has never smoked co mpleted Patient has never smoked [facility] ([facility] Smoking 04/21/2020 12:00:00 AM EDT Never Smoked Cigarettes com pleted Never Smoked Cigarettes [facility] ([facility]) Vital Signs ID Date Data Source UNK Name Value Range Interpretation Code Description Data Source(s) Body mass index (BMI) [Ratio] 29.5 kg/m2 29.5 k g/m2 [facility] ([facility] [place] body weight 105 [lb_av] 105 [lb_av] MEDEN T ([facility] Oxygen saturation in Arterial blood by Pulse oximetry 99 % 99 % [facility] ([facility] Body weight 160.25 [lb_av] 160.25 [lb_av] MED[facility] T ([facility] Body height 61.75 [in_i] 61.75 [in_i] [facility] ([facility] 5'1.75" Respiratory rate 16 /min 16 /min [facility] ( [facility] Body temperature 97.7 [degF] 97.7 [degF] [facility] ([facility] Heart rate 77 /min 77 /min [facility] ([facility] Diastolic blood pressure 80 mm[Hg] 80 mm[Hg] [facility] ([facility] Systolic blood pressure 119 mm[Hg] 119 mm[Hg] [facility] ([facility] Body mass index (BMI) [Ratio] 29.9 kg/m2 29.9 k g/m2 [facility] ([facility] [place] body weight 105 [lb_av] 105 [lb_av] MEDEN T ([facility] Oxygen saturation in Arterial blood by Pulse oximetry 98 % 98 % [facility] ([facility] Body weight 162.38 [lb_av] 162.38 [lb_av] MEDEN T ([facility] Body height 61.75 [in_i] 61.75 [in_i] [facility] ([facility] 5'1.75" Respiratory rate 16 /min 16 /min [facility] ( [facility] Body temperature 98.1 [degF] 98.1 [degF] [facility] ([facility] Heart rate 97 /min 97 /min [facility] ([facility] Diastolic blood pressure 78 mm[Hg] 78 mm[Hg] [facility] ([facility] Systolic blood pressure 127 mm[Hg] 127 mm[Hg] M EDENT ([facility] Oxygen saturation in Arterial blood by Pulse oximetry 97 % 97 % [facility] ([facility] ) Body mass index (BMI) [Ratio] 29.5 kg/m2 29.5 k g/m2 [facility] ([facility] ) Body weight 160.00 [lb_av] 160.00 [lb_av] MEDEN T ([facility]) Body height 61.7 [in_i] 61.7 [in_i] [facility] ([facility] ) 5'1.70" Heart rate 76 /min 76 /min [facility] ([facility] ) Diastolic blood pressure 70 mm[Hg] 70 mm[Hg] [facility] ([facility] ) Systolic blood pressure 124 mm[Hg] 124 mm[Hg] M EDENT ([facility] ) Body mass index (BMI) [Ratio] 28.2 kg/m2 28.2 k g/m2 [facility] ([facility] [place] body weight 105 [lb_av] 105 [lb_av] MEDEN T ([facility] Oxygen saturation in Arterial blood by Pulse oximetry 98 % 98 % [facility] ([facility] Body weight 152.75 [lb_av] 152.75 [lb_av] MEDEN T ([facility] Body height 61.75 [in_i] 61.75 [in_i] [facility] ([facility] 5'1.75" Respiratory rate 16 /min 16 /min [facility] ( [facility] Body temperature 98.8 [degF] 98.8 [degF] [facility] ([facility] Heart rate 79 /min 79 /min [facility] ([facility] Diastolic blood pressure 84 mm[Hg] 84 mm[Hg] [facility] ([facility] Systolic blood pressure 126 mm[Hg] 126 mm[Hg] M EDENT ([facility] Diastolic blood pressure 92 mm[Hg] 92 mm[Hg] [facility] ([facility] Systolic blood pressure 142 mm[Hg] 142 mm[Hg] M EDENT ([facility] Diastolic blood pressure 74 mm[Hg] 74 mm[Hg] eCW1 ([facility]) Systolic blood pressure 114 mm[Hg] 114 mm[Hg] e CW1 ([facility]) Body mass index (BMI) [Ratio] 29.15 kg/m2 29.15 kg/m2 W1 ([facility]) Body height [in_us] W1 ([facility]) Body weight Measured 159.4 [lb_av] 159.4 [lb_av ] W1 ([facility]) Body weight 71.442 kg 71.442 kg MEDENT ([facility], ) Body mass index (BMI) [Ratio] 28.8 kg/m2 28.8 k g/m2 MEDENT ([facility], ) Body weight 157.50 [lb_av] 157.50 [lb_av] MEDEN T ([facility]) Body height 62 [in_i] 62 [in_i] MEDENT ([facility], ) 5'2" Diastolic blood pressure 76 mm[Hg] 76 mm[Hg] MEDENT ([facility], ) Systolic blood pressure 122 mm[Hg] 122 mm[Hg] M EDENT ([facility]) Body mass index (BMI) [Ratio] 28.8 kg/m2 28.8 k g/m2 MEDENT ([facility] Oxygen saturation in Arterial blood by Pulse oximetry 99 % 99 % MEDENT ([facility] Body weight 156.25 [lb_av] 156.25 [lb_av] MEDEN T ([facility] Body height 61.75 [in_i] 61.75 [in_i] MEDENT ([facility] 5'1.75" Respiratory rate 16 /min 16 /min MEDENT ( [facility] Body temperature 97.6 [degF] 97.6 [degF] MEDENT ([facility] Heart rate 80 /min 80 /min MEDENT ([facility] Diastolic blood pressure 66 mm[Hg] 66 mm[Hg] MEDENT ([facility] Systolic blood pressure 108 mm[Hg] 108 mm[Hg] EDENT ([facility]
[2020-10-12] MEDS ORDERED: BUPIVACAINE LIPOSOME/PF 1.3% 20ML VIAL (13.3MG/ML)(EXPAREL)(C9290 PER1MG) As Ordered ONE (07:22)
[2020-10-12] MEDS ORDERED: BACITRACIN PWD 50,000 UNITS VIAL As Ordered ONE (07:22)
[2020-10-12] MEDS ORDERED: ONDANSETRON 4MG/2ML VIAL As Ordered ONE (07:24)
[2020-10-12] MEDS ORDERED: fentaNYL 250 MCG/5 ML INJECTION (J3010) As Ordered ONE (07:24)
[2020-10-12] MEDS ORDERED: LIDOCAINE 2% 100MG/5ML SDV (FOR ANES.) As Ordered ONE (07:24)
[2020-10-12] MEDS ORDERED: dexameTHASONE 4 MG/ML 1ML VIAL (J1100 PER 1MG) As Ordered ONE (07:24)
[2020-10-12] MEDS ORDERED: ROCURONIUM BROMIDE 50 MG/5 ML VIAL As Ordered ONE ×3 (07:24→10:13)
[2020-10-12] MEDS ORDERED: propofoL 200 MG/20 ML VIAL As Ordered ONE (07:24)
[2020-10-12] MEDS ORDERED: MIDAZOLAM INJ 2MG/2ML VIAL (J2250 PER 1MG) As Ordered ONE (07:25)
[2020-10-12] MEDS ORDERED: SCOPOLAMINE 1MG TRANSDERMAL PATCH As Ordered ONE (07:41)
[2020-10-12] MEDS ORDERED: SCOPOLAMINE 1MG TRANSDERMAL PATCH TOP ONE (08:00)
[2020-10-12] MEDS ORDERED: ePHEDrine SULFATE 25 MG/5 ML(5MG/ML) SYRINGE As Ordered ONE (08:09)
[2020-10-12] MEDS ORDERED: LACRILUBE (AKWA TEARS) OPHTH OINT 3.5 GM As Ordered ONE (08:09)
[2020-10-12] MEDS ORDERED: HYDROmorphone HCL 2 MG/ML 1ML VIAL (J1170) As Ordered ONE (08:55)
[2020-10-12] MEDS ORDERED: ACETAMINOPHEN 1000MG 100ML IV BTL (OFIRMEV) (J0131 PER 10MG) As Ordered ONE (08:55)
[2020-10-12] MEDS ORDERED: SUGAMMADEX SODIUM 500 MG/5 ML VIAL (BRIDION) As Ordered ONE (08:55)
[2020-10-12] MEDS ORDERED: METOCLOPRAMIDE INJ 10MG/2ML VIAL (J2765 PER 1) As Ordered ONE (09:15)
--- NOTE | 2020-10-12 11:17 | POST-OPPD ---
Postoperative Procedure Note Date Of Procedure: Oct 12, 2020 PREOPERATIVE DIAGNOSIS: Bilateral breast hypertrophy POSTOPERATIVE DIAGNOSIS: same FINDINGS: Large breasts PROCEDURE: Bilateral breast reduction SURGEON: Dr Miller ANESTHESIA: General SPECIMENS: Right breast 427gm, Left Breast 402 gm ESTIMATED BLOOD LOSS: 100cc REPLACED: none DRAINS: 10 mm MAXIMINO x 2 COMPLICATIONS: none POSTOPERATIVE CONDITION: stable MIGUEL ÁNGEL MILLER DO Oct 12, 2020 11:16
--- NOTE | 2020-10-12 11:17 | ROOPDOC ---
[facility] Report Of Operation Report of Operation PREOPERATIVE DIAGNOSIS: Bilateral breast hypertrophy POSTOPERATIVE DIAGNOSIS: same FINDINGS: Large breasts PROCEDURE: Bilateral breast reduction SURGEON: Dr Miller ANESTHESIA: General SPECIMENS: Right Breast 427gm, Left Breast 402 gm ESTIMATED BLOOD LOSS: 100cc REPLACED: none DRAINS: 10 mm MAXIMINO x 2 COMPLICATIONS: none POSTOPERATIVE CONDITION: stable DESCRIPTION OF PROCEDURE: This is a 45-year-old female who upper back and neck pain worsened by large breasts. She wears 36 triple D bra. She is scheduled for bilateral breast reduction. Risks, benefits, and alternatives were discussed with the patient in detail, and she is ready to proceed. The day of surgery, she was marked in the upright position and informed consent was obtained. She measured 29 cm from sternal notch to nipple on the right and 28 on the left sides, IMF at 20 cm bilaterally. She was brought into the operating room and placed in the supine position. Preoperative antibiotics and 5000 units heparin subcutaneous were given. Sequential pneumatic stocking were placed on the lower calves. General anesthesia was induced. She was prepped and draped in the usual sterile fashion. We started our procedure on the right side. Her nipple areolar complex was outlined 42 mm in diameter, and the patient was marked according superior medial pedicle. We started our incision by scoring the nipple areolar complex area, and then dissection was continued until the inferior lateral portion of the breast was resected. Hemostasis was obtained using electrocautery. The pedicle was de- epithelialized using Sneed scissors, good perfusion to the nipple at all times. Wound was irrigated with Bacitracin solution. We used Exparel 6 cc for local anesthesia to infiltrate in the Pectoralis muscle as well as the breast tissue. Than pedicle was turned superior to its new location at 20 cm from sternal notch. The mound was re-created using conforming 0 Vicryl sutures. Pillars were closed with interrupted 3-0 Monocryl sutures. The vertical limb was 6.5 cm. Excess tissue inferiorly was measured and resected, creating the horizontal scar. Nipple area complex was brought into view through the new opening and sutured in place with 3-0 and 4-0 Monocryl sutures and a 5-0 plain. A 10 mm Nick-Joshi drain was placed through the lateral portion of the horizontal incision. Then we turned our attention to the left side. Mirror procedure was carried out. Again, resection was done according to superior-medial pedicle using electrocautery and PEEK cautery. Hemostasis was obtained. The pedicle was in good viable condition. Exparel was infiltrated through the pectoralis muscle and the breast tissue 6 cc. Than pedicle was turned superior to its new location at 20 cm from sternal notch. The mound was re-created using conforming 0 Vicryl sutures. Pillars were closed with interrupted 3-0 Monocryl sutures. The vertical limb was 6.5 cm. Excess tissue inferiorly was measured and resected, creating the horizontal scar. Nipple area complex was brought into view through the new opening and sutured in place with 3-0 and 4-0 Monocryl sutures and a 5-0 plain gut suture in interrupted fashion. A 10 mm Nick-Joshi drain was placed through the lateral portion of the horizontal incision. Remaining Exparel injected in the horizontal incision. Total Exparel use 20 cc. Resected tissue sent to pathology in two specimens right and left breast tissue. Right breast 427 grams, left breast 402 grams. Dressings were applied to vertical and horizontal incision: Prinio. Nipples areolar complex: Xeroform and a bulky dressing with a surgical bra. Patient was extubated in the operating room without difficulty and was transferred to the recovery room in stable condition. MIGUEL ÁNGEL MILLER DO Oct 12, 2020 11:17
[2020-10-12] MEDS ORDERED: ACETAMINOPHEN TAB 650MG DOSE (2X325MG) PO PRN (11:30)
[2020-10-12] MEDS ORDERED: ONDANSETRON 4MG/2ML VIAL IV PRN ×2 (11:30→12:00)
[2020-10-12] MEDS ORDERED: oxyCODONE 5MG TAB As Ordered ONE (11:44)
[2020-10-12] MEDS ORDERED: fentaNYL 100 MCG/2 ML INJECTION (J3010) As Ordered ONE (11:44)
[2020-10-12] MEDS: fentaNYL 100 MCG/2 ML INJECTION (J3010) IV PRN ×2 (11:47→11:51)
[2020-10-12] MEDS ORDERED: LR 1,000 ML IV SCH (12:00)
[2020-10-12] MEDS ORDERED: oxyCODONE 5MG TAB PO PRN (12:00)
[2020-10-12] MEDS ORDERED: PROMETHAZINE INJ 25 MG/ML VIAL (J2550) As Ordered ONE (12:14)
[2020-10-12] MEDS ORDERED: PROMETHAZINE INJ 25 MG/ML VIAL (J2550) IV PRN (12:30)
[2020-10-12] MEDS: LR 1,000 ML IV SCH ×2 (13:31→23:18)
[2020-10-12] MEDS: ceFAZolin SOD 1 GM in D5W MINI-BAG PLUS 50 ML IV SCH ×2 (16:00→23:18)
[2020-10-12] MEDS: PERCOCET 5MG/325MG TAB PO PRN ×2 (16:08→20:48)
[2020-10-12] MEDS: FAMOTIDINE 20 MG TAB PO SCH (20:48)
[2020-10-13 02:00] VITALS: BP 94/58
[2020-10-13] MEDS: PERCOCET 5MG/325MG TAB PO PRN ×2 (04:31→09:11)
[2020-10-13 06:00] VITALS: BP 95/58
[2020-10-13] MEDS: ceFAZolin SOD 1 GM in D5W MINI-BAG PLUS 50 ML IV SCH (08:15)
[2020-10-13] MEDS: FAMOTIDINE 20 MG TAB PO SCH (08:16)
[2020-10-13 10:00] VITALS: BP 97/57
--- NOTE | 2020-10-13 10:45 | IPNPDOC ---
Subjective General Date Seen: Oct 13, 2020 Subject Chief Complaint/History The patient is a 45-year-old female admitted with a reason for visit of Bilateral Breast Hypertrophy. Patient status post bilateral breast reduction postop day 1. She is feeling well today, pain controlled with Percocet, ambulating, tolerating regular diet. Current Medications Current Medications Current Medications Medications (Trade) Dose Ordered Sig/Efrain Route PRN Reason Start Time Stop Time Status Last Admin Dose Admin Acetaminophen (Tylenol Tab) 650 mg Q6H PRN PO MILD PAIN (PS 1-4) 10/12/20 11:30 Cefazolin Sodium 1 gm/Dextrose 50 ml @ 100 mls/hr Q8H IV 10/12/20 16:00 10/13/20 08:15 Famotidine (Pepcid) 20 mg DAILY PO 10/12/20 19:30 10/13/20 08:16 Fentanyl Citrate (Sublimaze) 25 mcg Q5MP PRN IV PAIN LEVEL 5-10 10/12/20 12:00 10/12/20 13:00 DC 10/12/20 11:51 Lactated Ringer's 1,000 ml @ 75 mls/hr [id number] IV 10/12/20 11:17 10/12/20 23:18 Lactated Ringer's 1,000 ml @ 100 mls/hr Q10H IV 10/12/20 12:00 10/12/20 13:00 DC Ondansetron HCl (ZOFRAN INJection) 4 mg Q4H PRN IV NAUSEA OR VOMITING 10/12/20 11:30 10/12/20 11:36 Ondansetron HCl (ZOFRAN INJection) 4 mg Q4HP PRN IV NAUSEA OR VOMITING 10/12/20 12:00 10/12/20 13:00 DC Oxycodone HCl (Roxicodone, Oxyir) 5 mg ASDIRECTED PRN PO PAIN LEVEL 1-4 10/12/20 12:00 10/12/20 13:00 DC 10/12/20 11:51 Oxycodone/ Acetaminophen (Percocet 5mg/ 325mg Tablet) 2 tab Q4HP PRN PO PAIN LEVEL 8-10 10/12/20 11:30 10/13/20 09:11 Promethazine HCl (PHENERGAN INJection) 12.5 mg Q5MP PRN IV NAUSEA OR VOMITING 10/12/20 12:30 10/12/20 13:30 DC 10/12/20 12:20 Allergies Coded Allergies: ENVIROMENTAL (Verified Allergy, Unknown, 10/12/20) Objective Physical Examination Examination GENERAL APPEARANCE:Patient seen, laying in bed, awake, alert, and oriented. Comfortable, in no acute distress. SKIN: Warm and moist. BREAST: Right and left soft, non-tender incisions intact. MAXIMINO drains: 25/25 cc/24 hr. NAC: Viable, warm, symmetrical, mild post-op ecchymosis, no expanding hematoma. LUNGS: Clear to auscultation bilaterally. No wheezing appreciated. HEART: No chest wall abnormalities. Regular rate and rhythm with no murmurs appreciated. EXTREMITIES: No edema identified. No calf tenderness. Vital Signs Vital Signs Date Time Temp Pulse Resp B/P (MAP) Pulse Ox O2 Delivery O2 Flow Rate FiO2 10/13/20 10:00 98.6 81 18 97/57 (70) 97 Room Air 10/12/20 11:22 2 I&Os I&O- Last 24 Hours up to 6 AM 10/13/20 05:59 Intake Total 4303 ml Output Total 70 ml Balance 4233 ml Impression S/p bilateral breast reduction Doing well Stable for discharge Keep drains, monitor daily output. Bra support. Pain control, prescription for Percocet sent to the pharmacy. F/up plastic surgery. Plan / VTE VTE Prophylaxis Ordered?: Yes MIGUEL ÁNGEL MILLER DO Oct 13, 2020 10:45
[2020-10-13] MEDS ORDERED: PERCOCET PO (10:49)
--- OUTSIDE RECORDS SUMMARY | 2020-10-20 13:38 | CCD | Continuity of Care Document ---
Author Author Lindsay MILLER DO Organization Unknown Address [address] [place] [id number] Phone [phone] Care Team Providers Care Careers Adviser Name Role Phone Leora Polk M.D. AUTM [phone] Nery Conte N.P. AUTM [phone] AUTM Unavailable Problems Description No Active Problems Social History Type Date Description Comments Sex Unknown ETOH Use Occasionally consumes alcohol Tobacco Use Start: Unknown Patient has never smoked Recreational Drug Use Denies Drug Use Smoking Status Reviewed: 04/28/20 Patient has never smoked Exercise Type/Frequency Exercises regularly Allergies, Adverse Reactions, Alerts Description No Known Drug Allergies Medications Active Medications SIG Qnty Indications Ordering Provide r Date Famotidine Unknown Immunizations Description No Information Available Vital Signs Date Vital Result Comment 10/04/2020 11:24am BP Systolic 116 mmHg BP Diastolic 76 mmHg Heart Rate 84 /min Respiratory Rate 16 /min Body Temperature 96.6 F Height 62 inches 5'2" [place] Body Weight 110 lb 04/28/2020 2:46pm BP Systolic 118 mmHg BP Diastolic 82 mmHg Heart Rate 78 /min Respiratory Rate 16 /min Body Temperature 97.9 F Height 62 inches 5'2" Weight 159.00 lb BMI (Body Mass Index) 29.1 kg/m2 [place] Body Weight 110 lb Weight 72.122 kg BSA (Body Surface Area) 1.73 m2 Results Test Acquired Date Facility Test Result H/L Range Note Laboratory test finding 10/12/2020 [facility] Main Lab [address] [place] [address] [phone] Pathology Request For Service (SEE NOTE) 1 1 FINAL DIAGNOSIS A - Right breast tissue, reduction mammoplasty: Benign breast tissue with mild fibrocystic changes. B - Left breast tissue, reduction mammoplasty: Benign breast tissue with mild fibrocystic changes. 10/13/2020 - 1241 CLINICAL DIAGNOSIS Bilateral breast hypertrophy 10/12/2020 - 1527 GROSS DIAGNOSIS A - Received in formalin labeled "right breast tissue, 427 grams" is a 20 x 10 x 4 cm aggregate of breast tissu e and overlying skin. Sectioning reveals breast parenchyma with focal firm fibrotic areas. Computer Engineering Professor in two blocks. B - Received in formalin labeled "left breast tissue, 402 grams" is an approximately 20 x 10 x 4 cm aggregate of breast tissue and skin fragments. Sectioning reveals firm fibrotic bands. Computer Engineering Professor in two blocks. - 10/12/2020 - 1527 Signed Mica Keller MD 10/13/2020 1306 Procedures Description No Information Available Medical Devices Description No Information Available Encounters Type Date Location Provider Dx Diagnosis Office Visit 04/28/2020 2:30p [facility] Zunilda Miller DO N62 Hypertrophy of breast N64.81 Ptosis of breast Assessments Date Code Description Provider 10/04/2020 N62 Hypertrophy of breast Zunilda Pale y, DO 10/04/2020 N64.81 Ptosis of breast Zunilda Lobito, DO 10/04/2020 Z01.818 Encounter for other preprocedura l examination Zunilda Lobito, DO 04/28/2020 N62 Hypertrophy of breast Zunilda Pale y, DO 04/28/2020 N64.81 Ptosis of breast Zunilda Lobito, DO Plan of Treatment Future Appointment(s):* 10/27/2020 11:30 am - Zunilda Miller DO at [facility] Functional Status Description No Information Available Mental Status Description No Information Available Referrals Description No Information Available
--- OUTSIDE RECORDS SUMMARY | 2020-10-20 13:38 | CCD | Continuity of Care Document ---
Author Author Lindsay MILLER DO Organization Unknown Address [address] [place] [address] Phone [phone] Care Team Providers Care Railway Switch Operator Name Role Phone Leora Polk M.D. AUTM [phone] Nery Conte N.P. AUTM [phone] AUTM Unavailable Problems Description No Active Problems [...] Temperature 96.6 F Height 62 inches 5'2" [place] Body Weight 110 lb 04/28/2020 2:46pm BP Systolic 118 mmHg BP Diastolic 82 mmHg Heart Rate 78 /min Respiratory Rate 16 /min Body Temperature 97.9 F Height 62 inches 5'2" Weight 159.00 lb BMI (Body Mass Index) 29.1 kg/m2 [place] Body Weight 110 lb Weight 72.122 kg BSA (Body Surface Area) 1.73 m2 Results Test Acquired Date Facility Test Result H/L Range Note Laboratory test finding 10/12/2020 [facility] Main Lab [address] [place] [address] [phone] Pathology Request For Service (SEE NOTE) 1 [...] breast parenchyma with focal firm fibrotic areas. Research Environmental Scientist in two blocks. B - Received in formalin labeled "left breast tissue, 402 grams" is an approximately 20 x 10 x 4 cm aggregate of breast tissue and skin fragments. Sectioning reveals firm fibrotic bands. Research Environmental Scientist in two blocks. - 10/12/2020 - 1527 Signed Mica Keller MD 10/13/2020 1306 Procedures Description No Information Available Medical Devices Description No Information Available Encounters Type Date Location Provider Dx Diagnosis Office Visit 04/28/2020 2:30p [facility] Zunilda Miller DO N62 Hypertrophy of breast N64.81 Ptosis of breast Assessments Date Code Description Provider 10/04/2020 N62 Hypertrophy of breast Zunilda Pale y, DO 10/04/2020 N64.81 Ptosis of breast Zunilda Lobito, DO 10/04/2020 Z01.818 Encounter for other preprocedura l examination Zunilda Miller, 04/28/2020 N62 Hypertrophy of breast Zunilda Pale y, DO 04/28/2020 N64.81 Ptosis of breast Zunilda Lobito, DO Plan of Treatment Future Appointment(s):* 10/27/2020 11:30 am - Zunilda Miller DO at [facility] 10/04/2020 - Zunilda Miller DO* N62 Hypertrophy of breast* Comments:* Pre op visit today. Procedure, post op care, expectations and risks and benefits discussed with patient at length. All questions answered.Ready to proceed.RTO after surgery. * N64.81 Ptosis of breast * Z01.818 Encounter for other preprocedural examination Functional Status Description No Information Available Mental Status Description No Information Available Referrals Description No Information Available
--- OUTSIDE RECORDS SUMMARY | 2020-10-20 13:39 | CCD ---
Author Author [facility] Organization [facility] Address Unknown Phone Unavailable Care Team Providers Care Clinical Quality Assurance Associate Name Role Phone Karen Polk MD Unavailable [...] Unavailable Jam, A Leora FLOWERS Unavailable Unavailable ANGELA, E MIGUEL ÁNGEL DO Unavailable Unavailable ANGELA, E MIGUEL ÁNGEL DO Unavailable Unavailable ANGELA, E MIGUEL ÁNGEL DO Unavailable Unavailable ANGELA, E MIGUEL ÁNGEL DO Unavailable Unavailable ANGELA, E MIGUEL ÁNGEL DO Unavailable Unavailable ANGELA, E MIGUEL ÁNGEL DO Unavailable Unavailable ANGELA, E MIGUEL ÁNGEL DO Unavailable Unavailable ANGELA, E MIGUEL ÁNGEL DO Unavailable Unavailable ANGELA, E MIGUEL ÁNGEL DO Unavailable Unavailable ANGELA, E MIGUEL ÁNGEL DO Unavailable Unavailable ANGELA, E MIGUEL ÁNGEL DO Unavailable Unavailable ANGELA, E MIGUEL ÁNGEL DO Unavailable Unavailable ANGELA, E MIGUEL ÁNGEL DO Unavailable Unavailable ANGELA, E MIGUEL ÁNGEL DO Unavailable Unavailable ANGELA, E MIGUEL ÁNGEL DO Unavailable Unavailable ANGELA, E MIGUEL ÁNGEL DO Unavailable Unavailable ANGELA, E MIGUEL ÁNGEL DO Unavailable Unavailable ANGELA, E MIGUEL ÁNGEL DO Unavailable Unavailable ANGELA, E MIGUEL ÁNGEL DO Unavailable Unavailable ANGELA, E MIGUEL ÁNGEL DO Unavailable Unavailable ANGELA, E MIGUEL ÁNGEL DO Unavailable Unavailable Pleskach, Nery WEB DESIGNER Unavailable Unavailable Pleskach, Nery WEB DESIGNER Unavailable Unavailable Pleskach, Nery WEB DESIGNER Unavailable Unavailable Pleskach, Nery WEB DESIGNER Unavailable Unavailable Pleskach, Nery WEB DESIGNER Unavailable Unavailable Pleskach, Nery WEB DESIGNER Unavailable Unavailable Pleskach, Nery WEB DESIGNER Unavailable Unavailable Pleskach, Nery WEB DESIGNER Unavailable Unavailable Pleskach, Nery WEB DESIGNER Unavailable Unavailable Pleskach, Nery WEB DESIGNER Unavailable Unavailable Pleskach, Nery WEB DESIGNER Unavailable Unavailable Pleskach, Nery WEB DESIGNER Unavailable Unavailable Pleskach, Nery WEB DESIGNER Unavailable Unavailable Pleskach, Nery WEB DESIGNER Unavailable Unavailable Pleskach, Nery WEB DESIGNER Unavailable Unavailable Pleskach, Nery WEB DESIGNER Unavailable Unavailable Pleskach, Nery WEB DESIGNER Unavailable Unavailable Pleskach, Nery WEB DESIGNER Unavailable Unavailable Pleskach, Nery WEB DESIGNER Unavailable Unavailable Pleskach, Nery WEB DESIGNER Unavailable Unavailable Pleskach, Nery WEB DESIGNER Unavailable Unavailable Pleskach, Nery WEB DESIGNER Unavailable Unavailable Pleskach, Nery WEB DESIGNER Unavailable Unavailable Pleskach, Nery WEB DESIGNER Unavailable Unavailable Pleskach, Nery WEB DESIGNER Unavailable Unavailable Pleskach, Nery WEB DESIGNER Unavailable Unavailable Pleskach, Nery WEB DESIGNER Unavailable Unavailable Pleskach, Nery WEB DESIGNER Unavailable Unavailable Pleskach, Nery WEB DESIGNER Unavailable Unavailable Pleskach, Nery WEB DESIGNER Unavailable Unavailable COOK, B MANUEL ABSTRACT CLERK Unavailable Unavailable COOK, B MANUEL ABSTRACT CLERK Unavailable Unavailable COOK, B MANUEL ABSTRACT CLERK Unavailable Unavailable COOK, B MANUEL ABSTRACT CLERK Unavailable Unavailable COOK, B MANUEL ABSTRACT CLERK Unavailable Unavailable COOK, B MANUEL ABSTRACT CLERK Unavailable Unavailable COOK, B MANUEL ABSTRACT CLERK Unavailable Unavailable COOK, B MANUEL ABSTRACT CLERK Unavailable Unavailable COOK, B MANUEL ABSTRACT CLERK Unavailable Unavailable COOK, B MANUEL ABSTRACT CLERK Unavailable Unavailable COOK, B MANUEL ABSTRACT CLERK Unavailable Unavailable COOK, B MANUEL ABSTRACT CLERK Unavailable Unavailable COOK, B MANUEL ABSTRACT CLERK Unavailable Unavailable COOK, B MANUEL ABSTRACT CLERK Unavailable Unavailable COOK, B MANUEL ABSTRACT CLERK Unavailable Unavailable COOK, B MANUEL ABSTRACT CLERK Unavailable Unavailable COOK, B MANUEL ABSTRACT CLERK Unavailable Unavailable COOK, B MANUEL ABSTRACT CLERK Unavailable Unavailable COOK, B MANUEL ABSTRACT CLERK Unavailable Unavailable COOK, B MANUEL ABSTRACT CLERK Unavailable Unavailable COOK, B MANUEL ABSTRACT CLERK Unavailable Unavailable COOK, B MANUEL ABSTRACT CLERK Unavailable Unavailable COOK, B MANUEL ABSTRACT CLERK Unavailable Unavailable COOK, B MANUEL ABSTRACT CLERK Unavailable Unavailable COOK, B MANUEL ABSTRACT CLERK Unavailable Unavailable COOK, B MANUEL ABSTRACT CLERK Unavailable Unavailable COOK, B MANUEL ABSTRACT CLERK Unavailable Unavailable COOK, B MANUEL ABSTRACT CLERK Unavailable Unavailable COOK, B MANUEL ABSTRACT CLERK Unavailable Unavailable COOK, B MANUEL ABSTRACT CLERK Unavailable Unavailable COOK, B MANUEL ABSTRACT CLERK Unavailable Unavailable COOK, B MANUEL ABSTRACT CLERK Unavailable Unavailable COOK, B MANUEL ABSTRACT CLERK Unavailable Unavailable COOK, B MANUEL ABSTRACT CLERK Unavailable Unavailable COOK, B MANUEL ABSTRACT CLERK Unavailable Unavailable COOK, B MANUEL ABSTRACT CLERK Unavailable Unavailable COOK, B MANUEL ABSTRACT CLERK Unavailable Unavailable COOK, B MANUEL ABSTRACT CLERK Unavailable Unavailable COOK, B MANUEL ABSTRACT CLERK Unavailable Unavailable COOK, B MANUEL ABSTRACT CLERK Unavailable Unavailable COOK, B MANUEL ABSTRACT CLERK Unavailable Unavailable COOK, B MANUEL ABSTRACT CLERK Unavailable Unavailable COOK, B MANUEL ABSTRACT CLERK Unavailable Unavailable COOK, B MANUEL ABSTRACT CLERK Unavailable Unavailable COOK, B MANUEL ABSTRACT CLERK Unavailable Unavailable COOK, B MANUEL ABSTRACT CLERK Unavailable Unavailable COOK, B MANUEL ABSTRACT CLERK Unavailable Unavailable COOK, B MANUEL ABSTRACT CLERK Unavailable Unavailable COOK, B MANUEL ABSTRACT CLERK Unavailable Unavailable COOK, B MANUEL ABSTRACT CLERK Unavailable Unavailable COOK, B MANUEL ABSTRACT CLERK Unavailable Unavailable COOK, B MANUEL ABSTRACT CLERK Unavailable Unavailable COOK, B MANUEL ABSTRACT CLERK Unavailable Unavailable COOK, B MANUEL ABSTRACT CLERK Unavailable Unavailable COOK, B MANUEL ABSTRACT CLERK Unavailable Unavailable COOK, B MANUEL ABSTRACT CLERK Unavailable Unavailable COOK, B MANUEL ABSTRACT CLERK Unavailable Unavailable COOK, B MANUEL ABSTRACT CLERK Unavailable Unavailable COOK, B MANUEL ABSTRACT CLERK Unavailable Unavailable COOK, B MANUEL ABSTRACT CLERK Unavailable Unavailable COOK, B MANUEL ABSTRACT CLERK Unavailable Unavailable COOK, B MANUEL ABSTRACT CLERK Unavailable Unavailable COOK, B MANUEL ABSTRACT CLERK Unavailable Unavailable COOK, B MANUEL ABSTRACT CLERK Unavailable Unavailable DUSSING, JAY WEB DESIGNER-C Unavailable Unavailable DUSSING, JAY WEB DESIGNER-C Unavailable Unavailable DUSSING, JAY WEB DESIGNER-C Unavailable Unavailable DUSSING, JAY WEB DESIGNER-C Unavailable Unavailable DUSSING, JAY WEB DESIGNER-C Unavailable Unavailable DUSSING, JAY WEB DESIGNER-C Unavailable Unavailable DUSSING, JAY WEB DESIGNER-C Unavailable Unavailable DUSSING, JAY WEB DESIGNER-C Unavailable Unavailable DUSSING, JAY WEB DESIGNER-C Unavailable Unavailable DUSSING, JAY WEB DESIGNER-C Unavailable Unavailable DUSSING, JAY WEB DESIGNER-C Unavailable Unavailable DUSSING, JAY WEB DESIGNER-C Unavailable Unavailable DUSSING, JAY WEB DESIGNER-C Unavailable Unavailable DUSSING, JAY WEB DESIGNER-C Unavailable Unavailable DUSSING, JAY WEB DESIGNER-C Unavailable Unavailable DUSSING, JAY WEB DESIGNER-C Unavailable Unavailable DUSSING, JAY WEB DESIGNER-C Unavailable Unavailable DUSSING, JAY WEB DESIGNER-C Unavailable Unavailable DUSSING, JAY WEB DESIGNER-C Unavailable Unavailable DUSSING, JAY WEB DESIGNER-C Unavailable Unavailable DUSSING, JAY WEB DESIGNER-C Unavailable Unavailable DUSSING, JAY WEB DESIGNER-C Unavailable Unavailable DUSSING, JAY WEB DESIGNER-C Unavailable Unavailable DUSSING, JAY WEB DESIGNER-C Unavailable Unavailable DUSSING, JAY WEB DESIGNER-C Unavailable Unavailable DUSSING, JAY WEB DESIGNER-C Unavailable Unavailable DUSSING, JAY WEB DESIGNER-C Unavailable Unavailable DUSSING, JAY WEB DESIGNER-C Unavailable Unavailable DUSSING, JAY WEB DESIGNER-C Unavailable Unavailable DUSSING, JAY WEB DESIGNER-C Unavailable Unavailable DUSSING, JAY WEB DESIGNER-C Unavailable Unavailable DUSSING, JAY WEB DESIGNER-C Unavailable Unavailable DUSSING, JAY WEB DESIGNER-C Unavailable Unavailable Re-disclosure Warning The records that [...] is protected by Article 27-F of the [facility] Public Health law. If you continue you may have access to information: Regarding HIV / AIDS; Provided by facilities licensed or operated by the [facility] Office of Mental Health; or Provided by the [facility] Office for People With Developmental Disabilities. If such information is present, then the following [facility] mandated warning applies: This information has been [...] law may result in a fine or senior living sentence or both. A general authorization for the release of medical or other information is NOT sufficient authorization for further disc losure. Family History Family Member Name Family Member Gender Family Member Status Date o f Status Description Data Source(s) Unknown Unknown Problem [facility] ([facility], ) GM Unknown Unknown Problem [facility] ([facility] Encounters Encounter Providers Location Date Indications Data Source(s ) Outpatient Attender: Nery Conte [facility] Main Office 10/02/2020 0 3:00:00 PM EST [facility] ([facility] Outpatient Attender: Nery Conte [facility] Main Office 08/21/2020 0 7:15:00 AM EST [facility] ([facility] Outpatient Attender: MIGUEL ÁNGLE Roy/Shelly/Dionisio/Connie harper 04/28/2020 02:30:00 PM EDT [facility] ([facility], ) Outpatient Attender: MANUEL ALVARADO NP Physical Therapy 04/21/2020 0 2:45:00 PM EDT [facility] ([facility] ) Outpatient Attender: Nery CARRERAP Main Office 04/14/2020 1 1:45:00 AM EDT [facility] ([facility] Outpatient Attender: JAY HIGHTOWERCReferrer: Leora oviedo MD 03/15/2020 09:39:22 AM EDT [facility] D[facility] [address] [place] [id number] 01/03/2020 12:00:00 AM EDT eC ([facility]) Outpatient Attender: JAY HIGHTOWERCReferrer: Leora oviedo MD 11/29/2019 03:07:24 PM EDT [facility] Outpatient Attender: JAY Shirleyrer: Leora oviedo MD 09/29/2019 02:45:38 PM EST [facility] Immunizations Vaccine Date Status Description Data Source(s) INFLUENZA VIRUS VACCINE QUADRIVAL (6 MOS AND UP)/PF 05/18/2020 12:00:00 AM EDT completed [facility] Medications Medication Brand Name Start Date Product Form Dose Route Admi nistrative Instructions Pharmacy Instructions Status Indications Reaction Description Data Source(s) 5-325 mg 10/13/2020 12:00:00 AM EST tablet 20 TAKE ONE TABLET BY MOUTH EVERY 6 HOURS NEEDED FOR PAIN LEVEL 8-10 ON PAIN SCALE MAXIMUM DAILY DOSE = 4 TABLETS TAKE ONE TABLET BY MOUTH EVERY 6 HOURS A S NEEDED FOR PAIN LEVEL 8-10 ON PAIN SCALE MAXIMUM DAILY DOSE = 4 TABLETS SOLD: 10/13/2020 [facility] Cyclobenzaprine hydrochloride 10 MG Oral Tablet Cyclobenzapr ine HCL 08/21/2020 12:00:00 AM EST ORAL active M [facility] ([facility] Cyclobenzaprine hydrochloride 10 MG Oral Tablet CYCLOBENZAPR INE HCL 08/21/2020 12:00:00 AM EST tablet 30 TAKE 1/2-1 TABLE T BY MOUTH THREE TIMES A DAY NEEDED TAKE 1/2-1 TABLET BY MOUTH THREE TIMES A DAY NEEDED SOLD: 08/21/2020 [facility] Famotidine 20 MG Oral Tablet FAMOTIDINE 02/22/2020 [...] 12/01/2019 12:00:00 AM EDT ORAL active [facility] ([facility]) Famotidine 20 MG Oral Tablet Famotidine [...] MOUTH EVERY DAY WITH FOOD SOLD: 10/01/2019 [facility] 17.5-3.13-1.6 gram 09/23/2019 12:00:00 AM EST recon soln 354 TAKE PER DOCTOR'S BOWEL PREP INSTRUCTIONS TAKE PER DOCTOR'S BOWEL PREP INSTRUCTIONS SOLD: 09/25/2019 [facility] Suprep Bowel Prep Kit Suprep Bowel Prep Kit 09/22/2019 12:00:00 AM EST active [facility] ([facility], ) Magnesium Hydroxide 80 MG/ML Oral Suspension Milk Of Magnesi a 09/22/2019 12:00:00 AM EST ORAL active M [facility] ([facility], ) 20 mg 08/20/2019 12:00:00 AM EST capsule,delayed release (DR/EC) 30 TAKE 1 CAPSULE BY MOUTH ONCE DAILY TAKE 1 CAPSULE BY MOUTH ONCE DAILY SOLD: 08/22/2019 [facility] Insurance Providers Payer name Policy type / Coverage type Policy ID Covered republican ID Covered republican's relationship to manzano Policy Man[place] Plan Information UMR [facility] [id number] SP [id number] UMR O [id number] S [id number] UMR F [id number] SELF [id number] UMR F [id number] SELF [id number] ANSI-Commercial [id number] [employer] Medigap Part B [id number] Self [id number] Umr Commercial [id number] Self [id number] Umr Commercial [id number] Self [id number] [employer] Medigap Part B [id number] Self [id number] Umr Commercial [id number] Self [id number] UMR [facility] [id number] SP [id number] [employer] Medigap Part B [id number] Self [id number] Umr Commercial [id number] Self [id number] [employer] Medigap Part B [id number] Self [id number] Umr Commercial [id number] Self [id number] R [facility] [id number] SP [id number] [employer] [id number] SP [id number] [employer] Medigap Part B [id number] Self [id number] Umr Commercial [id number] Self [id number] [employer] Commercial [id number] Self [id number] [employer] Commercial [id number] Self [id number] [employer] PPO O [id number] S [id number] [employer] Commercial [id number] Self [id number] [employer] Commercial Self ZAYNA[employer] PUB HLTH [id number] SP [id number] [employer] [id number] SP [id number] Ghi Medigap Part B Self [employer] Health Maintenance Organization (HMO) Se lf [employer] U [id number] Self [id number] [employer] [id number] SP [id number] Ge Commercial Self Problems, Conditions, and Diagnoses Code Display Name Description Problem Type Effective Dates Data Source(s) [id number] Gastroesophageal reflux disease Gastroesophageal reflux disease Problem 10/02/2020 12:00:00 AM EST [facility] ([facility] Surgeries/Procedures Procedure Description Date Indications Data Source(s) ECG ROUTINE ECG W/LEAST 12 LDS W/I&R 10/02/2020 12:00: 00 AM EST [facility] ([facility] Mammogram 09/25/2020 12:00:00 AM EST M [facility] ([facility] THERAPEUTIC PX 1/> AREAS EACH 15 MIN EXERCISES 12:00:00 AM EDT [facility] ([facility]) MANUAL THERAPY TQS 1/> REGIONS EACH 15 MINUTES 12:00:00 AM EDT [facility] ([facility] ) APPLICATION MODALITY 1/> AREAS HOT/COLD PACKS 02/24/20 12:00:00 AM EDT [facility] ([facility] ) THERAPEUTIC PX 1/> AREAS EACH 15 MIN EXERCISES 12:00:00 AM EDT [facility] ([facility] ) APPLICATION MODALITY 1/> AREAS HOT/COLD PACKS 02/21/20 12:00:00 AM EDT [facility] ([facility] ) THERAPEUTIC PX 1/> AREAS EACH 15 MIN EXERCISES 12:00:00 AM EDT [facility] ([facility] ) THERAPEUTIC PX 1/> AREAS EACH 15 MIN EXERCISES 12:00:00 AM EDT [facility] ([facility] ) MANUAL THERAPY TQS 1/> REGIONS EACH 15 MINUTES 12:00:00 AM EDT [facility] ([facility] ) THERAPEUTIC PX 1/> AREAS EACH 15 MIN EXERCISES 12:00:00 AM EDT [facility] ([facility] ) MANUAL THERAPY TQS 1/> REGIONS EACH 15 MINUTES 12:00:00 AM EDT [facility] ([facility] ) THERAPEUTIC PX 1/> AREAS EACH 15 MIN EXERCISES 12:00:00 AM EDT [facility] ([facility] ) THERAPEUTIC PX 1/> AREAS EACH 15 MIN EXERCISES 12:00:00 AM EDT [facility] ([facility]) MANUAL THERAPY TQS 1/> REGIONS EACH 15 MINUTES 12:00:00 AM EDT [facility] ([facility]) THERAPEUTIC PX 1/> AREAS EACH 15 MIN EXERCISES 12:00:00 AM EDT [facility] ([facility]) MANUAL THERAPY TQS 1/> REGIONS EACH 15 MINUTES 12:00:00 AM EDT [facility] ([facility]) Physical Therapy Eval - Low Complexity 02/03/2020 12:0 0:00 AM EDT [facility] ([facility]) Results ID Date Data Source [id number] 10/12/2020 10:56:00 AM EST [facility] ([facility]) Name Value Range Interpretation Code Description Data Hazel rce(s) Supporting Document(s) Surgical pathology study Laboratory test result [facility] ([facility]) FINAL DIAGNOSIS A - Right breast tissue, reduction mammoplasty: Benign breast tissue with mild fibrocystic changes. B - Left breast tissue, reduction mammoplasty: Benign breast tissue with mild fibrocystic changes. 10/13/2020 - 124 CLINICAL DIAGNOSIS Bilateral breast hypertrophy 10/12/2020 - 1527 GROSS DIAGNOSIS A - Received in formalin labeled "right breast tissue, 427 grams" is a 20 x 10 x 4 cm aggregate of breast tissu e and overlying skin. Sectioning reveals breast parenchyma with focal firm fibrotic areas. Assistant Store Manager Trainee in two blocks. B - Received in formalin labeled "left breast tissue, 402 grams" is an approximately 20 x 10 x 4 cm aggregate of breast tissue and skin fragments. Sectioning reveals firm fibrotic bands. Assistant Store Manager Trainee in two blocks. - 10/12/2020 - 1527 Signed Mica Keller MD 10/13/2020 1306 ID Date Data Source [id number] 10/07/2020 11:00:00 AM EST [facility] Name Value Range Interpretation Code Description Data Hazel rce(s) Supporting Document(s) SARS coronavirus 2 RNA Not Detected [facility] [place] This lab was ordered by [facility] and reported by [facility]. ID Date Data Source [id number] 10/04/2020 08:10:00 AM EST [facility] ([facility] Name Value Range Interpretation Code Description Data Hazel rce(s) Supporting Document(s) Specific gravity of Urine 1.008 1.005-1.030 [facility] ([facility] A courtesy copy of this report has been sent to [phone], the patient SRC:UC pH of Urine by Test strip 7.5 5.0-7.5 [facility] ([facility] A courtesy copy of this report has been sent to [phone], the patient SRC:UC Color of Urine Laboratory test result [facility] ([facility] A courtesy copy of this report has been sent to [phone], the patient [facility] Appearance of Urine Laboratory test result [facility] ([facility] A courtesy copy of this report has been sent to [phone], the patient [facility] Protein [Presence] in Urine by Test strip Laboratory test result [facility] ([facility] A courtesy copy of this report has been sent to [phone], the patient SRC:UC Leukocyte esterase [Presence] in Urine by Test strip Laboratory aga t result [facility] ([facility] A courtesy copy of this report has been sent to [phone], the patient SRC:UC Glucose [Presence] in Urine Laboratory test result [facility] ([facility] A courtesy copy of this report has been sent to [phone], the patient SRC:UC Ketones [Presence] in Urine by Test strip Laboratory test result [facility] ([facility] A courtesy copy of this report has been sent to [phone], the patient SRC:UC Bilirubin.total [Presence] in Urine by Test strip Laboratory test res ult [facility] ([facility] A courtesy copy of this report has been sent to [phone], the patient SRC:UC Hemoglobin [Presence] in Urine by Test strip Laboratory test result [facility] ([facility] A courtesy copy of this report has been sent to [phone], the patient SRC:UC Nitrite [Presence] in Urine by Test strip Laboratory test result [facility] ([facility] A courtesy copy of this report has been sent to [phone], the patient SRC:UC Urobilinogen [Mass/volume] in Urine by Test strip 0.2 mg/dL 0.2-1.0 [facility] ([facility] A courtesy copy of this report has been sent to [phone], the patient SRC:UC Urinalysis microscopic panel - Urine sediment Laboratory test result [facility] ([facility] A courtesy copy of this report has been sent to [phone], the patient SRC:UC ID Date Data Source [id number] 10/04/2020 08:10:00 AM EST [facility] ([facility] Name Value Range Interpretation Code Description Data Hazel rce(s) Supporting Document(s) Urea nitrogen [Mass/volume] in Serum or Plasma 9 mg/dL 6-24 [facility] ([facility] A courtesy copy of this report has been sent to [phone], the patient SRC:UC Glucose [Mass/volume] in Serum or Plasma 80 mg/dL 65-99 [facility] ([facility] A courtesy copy of this report has been sent to [phone], the patient SRC:UC Creatinine [Mass/volume] in Serum or Plasma 0.77 mg/dL 0.57-1.00 [facility] ([facility] A courtesy copy of this report has been sent to [phone], the patient SRC:UC eGFR If NonAfricn Am 95 mL/min/1.73 [facility] ([facility] A courtesy copy of this report has been sent to [phone], the patient SRC:UC Urea nitrogen/Creatinine [Mass Ratio] in Serum or Plasma 12 9 -23 [facility] ([facility] A courtesy copy of this report has been sent to [phone], the patient SRC:UC eGFR If Africn Am 109 mL/min/1.73 [facility] ([facility] A courtesy copy of this report has been sent to [phone], the patient SRC:UC Chloride [Moles/volume] in Serum or Plasma 102 mmol/L 96-106 [facility] ([facility] A courtesy copy of this report has been sent to [phone], the patient SRC:UC Potassium [Moles/volume] in Serum or Plasma 4.3 mmol/L 3.5-5.2 [facility] ([facility] A courtesy copy of this report has been sent to [phone], the patient SRC:UC Sodium [Moles/volume] in Serum or Plasma 137 mmol/L 134-144 [facility] ([facility] A courtesy copy of this report has been sent to [phone], the patient SRC:UC Carbon dioxide, total [Moles/volume] in Serum or Plasma 23 mmol/L 20 -29 [facility] ([facility] A courtesy copy of this report has been sent to [phone], the patient SRC:UC Calcium [Mass/volume] in Serum or Plasma 9.3 mg/dL 8.7-10.2 [facility] ([facility] A courtesy copy of this report has been sent to [phone], the patient SRC:UC Protein, Total 7.3 g/dL 6.0-8.5 [facility] ([facility] A courtesy copy of this report has been sent to [phone], the patient SRC:UC Albumin [Mass/volume] in Serum or Plasma 4.3 g/dL 3.8-4.8 [facility] ([facility] A courtesy copy of this report has been sent to [phone], the patient SRC:UC Albumin/Globulin [Mass Ratio] in Serum or Plasma 1.4 1.2-2.2 [facility] ([facility] A courtesy copy of this report has been sent to [phone], the patient SRC:UC Globulin [Mass/volume] in Serum by calculation 3.0 g/dL 1.5-4.5 [facility] ([facility] A courtesy copy of this report has been sent to [phone], the patient SRC:UC Bilirubin.total [Mass/volume] in Serum or Plasma 0.4 mg/dL 0.0-1.2 [facility] ([facility] A courtesy copy of this report has been sent to [phone], the patient SRC:UC Alkaline phosphatase [Enzymatic activity/volume] in Serum or Plasma 51 IU/L 39-117 [facility] ([facility] A courtesy copy of this report has been sent to [phone], the patient SRC:UC Alanine aminotransferase [Enzymatic activity/volume] in Seru m or Plasma 9 IU/L 0-32 [facility] ([facility] A courtesy copy of this report has been sent to [phone], the patient SRC:UC Aspartate aminotransferase [Enzymatic activity/volume] in Serum or Plasma 15 IU/L 0-40 [facility] ([facility] A courtesy copy of this report has been sent to [phone], the patient SRC:UC ID Date Data Source [id number] 10/04/2020 08:10:00 AM EST [facility] ([facility] Name Value Range Interpretation Code Description Data Hazel rce(s) Supporting Document(s) Lor Ling [id number] Default Laboratory test result [facility] ([facility] A courtesy copy of this report has been sent to [phone], the patient SRC:UC ID Date Data Source [id number] 10/04/2020 08:10:00 AM EST [facility] ([facility] Name Value Range Interpretation Code Description Data Hazel rce(s) Supporting Document(s) Urine Culture, Routine Laboratory test result [facility] ([facility] A courtesy copy of this report has been sent to [phone], the patient SRC:UC Bacteria identified in Urine by Culture Laboratory test result [facility] ([facility] A courtesy copy of this report has been sent to [phone], the patient SRC:UC ID Date Data Source [id number] 10/04/2020 08:10:00 AM EST [facility] ([facility] Name Value Range Interpretation Code Description Data Hazel rce(s) Supporting Document(s) Leukocytes [#/volume] in Blood by Automated count 5.8 x10E3/uL 3.4-10 .8 [facility] ([facility] A courtesy copy of this report has been sent to [phone], the patient SRC:UC Erythrocytes [#/volume] in Blood by Automated count 4.51 x10E6/uL 3.7 7-5.28 [facility] ([facility] A courtesy copy of this report has been sent to [phone], the patient SRC:UC Hematocrit [Volume Fraction] of Blood by Automated count 40.8 % 3 4.0-46.6 [facility] ([facility] A courtesy copy of this report has been sent to [phone], the patient SRC:UC Hemoglobin [Mass/volume] in Blood 13.9 g/dL 11.1-15.9 [facility] ([facility] A courtesy copy of this report has been sent to [phone], the patient SRC:UC Erythrocyte mean corpuscular hemoglobin [Entitic mass] by Automated count 30.8 pg 26.6-33.0 [facility] ([facility] A courtesy copy of this report has been sent to [phone], the patient SRC:UC Erythrocyte mean corpuscular volume [Entitic volume] by Auto mated count 91 fL 79-97 [facility] ([facility] A courtesy copy of this report has been sent to [phone], the patient SRC:UC Erythrocyte mean corpuscular hemoglobin concentration [Mass/volume] by Automated count 34.1 g/dL 31.5-35.7 [facility] ([facility] A courtesy copy of this report has been sent to [phone], the patient SRC:UC Erythrocyte distribution width [Ratio] by Automated count 12.1 % 11.7-15.4 [facility] ([facility] A courtesy copy of this report has been sent to [phone], the patient SRC:UC Lymphocytes/100 leukocytes in Blood by Automated count 36 % [facility] ([facility] A courtesy copy of this report has been sent to [phone], the patient SRC:UC Platelets [#/volume] in Blood by Automated count 164 x10E3/uL 150-450 [facility] ([facility] A courtesy copy of this report has been sent to [phone], the patient SRC:UC Neutrophils 50 % [facility] ([facility] A courtesy copy of this report has been sent to [phone], the patient SRC:UC Monocytes/100 leukocytes in Blood by Automated count 9 % [facility] ([facility] A courtesy copy of this report has been sent to [phone], the patient SRC:UC Eosinophils/100 leukocytes in Blood by Automated count 4 % [facility] ([facility] A courtesy copy of this report has been sent to [phone], the patient SRC:UC Immature cells [#/volume] in Blood Laboratory test result [facility] ([facility] A courtesy copy of this report has been sent to [phone], the patient SRC:UC Basophils/100 leukocytes in Blood by Automated count 1 % [facility] ([facility] A courtesy copy of this report has been sent to [phone], the patient SRC:UC Lymphocytes [#/volume] in Blood 2.1 x10E3/uL 0.7-3.1 [facility] ([facility] A courtesy copy of this report has been sent to [phone], the patient SRC:UC Neutrophils [#/volume] in Blood by Automated count 3.0 x10E3/uL 1.4-7 .0 [facility] ([facility] A courtesy copy of this report has been sent to [phone], the patient SRC:UC Eosinophils [#/volume] in Blood by Automated count 0.2 x10E3/uL 0.0-0 .4 [facility] ([facility] A courtesy copy of this report has been sent to [phone], the patient SRC:UC Monocytes [#/volume] in Blood 0.5 x10E3/uL 0.1-0.9 [facility] ([facility] A courtesy copy of this report has been sent to [phone], the patient SRC:UC Basophils [#/volume] in Blood by Automated count 0.0 x10E3/uL 0.0-0.2 [facility] ([facility] A courtesy copy of this report has been sent to [phone], the patient SRC:UC Immature granulocytes/100 leukocytes in Blood by Automated count 0 % [facility] ([facility] A courtesy copy of this report has been sent to [phone], the patient SRC:UC Nucleated erythrocytes/100 leukocytes [Ratio] in Blood by Automated count Laboratory test result [facility] ([facility] A courtesy copy of this report has been sent to [phone], the patient SRC:UC Immature granulocytes [#/volume] in Blood by Automated count 0.0 x10E3/uL 0.0-0.1 [facility] ([facility] A courtesy copy of this report has been sent to [phone], the patient SRC:UC Morphology [Interpretation] in Blood Narrative Laboratory test result [facility] ([facility] A courtesy copy of this report has been sent to [phone], the patient SRC:UC ID Date Data Source [id number] 10/05/2020 03:05:00 AM EST [facility] Name Value [...] 0.0-0.1 [facility] ID Date Data Source [id number] 10/05/2020 04:05:00 AM EST [facility] Name Value [...] IU/L 0-32 [facility] ID Date Data Source [id number] 10/05/2020 05:05:00 AM EST [facility] Name Value Range Interpretation Code Description Data Hazel rce(s) Supporting Document(s) Specific Gilman 1.008 1.005-1.030 [facility] pH 7.5 5.0-7.5 [facility] Urine-Color Yellow Yellow [facility] Appearance Clear Clear [facility] WBC Esterase Negative Negative [facility] Protein Negative Negative/Trace [facility] Glucose Negative Negative [facility] Ketones Negative Negative [facility] Occult Blood Negative Negative [facility] Bilirubin Negative Negative [facility] Urobilinogen,Semi-Qn 0.2 mg/dL 0.2-1.0 [facility] Nitrite, Urine Negative Negative [facility] Microscopic Examination [facility] Microscopic follows if indicated. ID Date Data Source [id number] 10/05/2020 11:05:00 PM EST [facility] Name Value Range Interpretation Code Description Data Hazel rce(s) Supporting Document(s) Urine Culture, Routine Final report [facility] ID Date Data Source [id number] 10/05/2020 03:05:00 AM EST [facility] Name Value Range Interpretation Code Description Data Hazel rce(s) Supporting Document(s) Lor Ling CMP14 Default Lab Kiera A hand-written panel/profile was receive d from your office. Inaccordance with the [facility] Ambiguous Test Code Policy dated March2003, we have completed your order by using the closest currentlyor formerly recognized AMA panel. We have assigned ComprehensiveMetabolic Panel (14), Test Code #158552 to this request. If thisis not the testing you wished to receive on this specimen, pleasecontact the [facility] Client Inquiry/Technical Services Departmentto clarify the test order. We appreciate your business. ID Date Data Source [id number] 10/05/2020 11:05:00 PM EST [facility] Name Value Range Interpretation Code Description Data Hazel rce(s) Supporting Document(s) Result 1 No growth [facility] ID Date Data Source [id number] 10/02/2020 04:14:00 PM EST [facility] ([facility] Name Value Range Interpretation Code Description Data Hazel rce(s) Supporting Document(s) Electrocardiogram Laboratory test result [facility] ([facility] ID Date Data Source [id number] 09/07/2020 08:57:00 AM EST [facility] ([facility] Name Value Range Interpretation Code Description Data Hazel rce(s) Supporting Document(s) Thyroid Stimulating Hormone 0.994 uIU/ML 0.358-3.740 [facility] ([facility] Free T4 0.95 ng/dL 0.76-1.46 [facility] ([facility] ID Date Data Source [id number] 09/07/2020 08:57:00 AM EST [facility] ([facility] Polk [...] [facility] ID Date Data Source [id number] 09/07/2020 08:57:00 AM EST [facility] (Leora Polk [...] Little GFR Left</content>
<content>ESRD GFR <15 on [place]</content>
<content></content> Carbon Dioxide Level 25 meq/L 21-32 [facility] ([facility] Anion Gap 4 meq/L [...] P.C.) Alkaline Phosphatase 50 U/L 45-117 [facility] ([facility] Total Protein 7.3 GM/DL 6.4-8.2 [facility] ([facility] Albumin/Globulin Ratio 1.1 1.2-2.2 [facility] ([facility] Albumin 3.9 GM/DL 3.2-5.2 [facility] ([facility] ID Date Data Source [id number] 03/27/2020 12:00:00 AM EDT [facility] Jay Mast Np Patient Name: LINDSAY NOBLE [address] [place] [address] Date of : 1975[place] [address] Date of Exam: 03/27/2020PH#: Fax: [phone] EXAM: [...] by: Ki Vizcarra MD 03/28/2020 8:12 AM [facility] ( & Arti)VradV/jmcThanamado you for referring LINDSAY NOBLE to our office. Electronically Signed - [facility] 03/28/20 8:34 Name Value Range Interpretation Code Description Data Hazel rce(s) Supporting Document(s) ID Date Data Source [id number] 03/19/2020 09:30:00 AM EDT [facility] Name Value Range Interpretation Code Description Data Hazel rce(s) Supporting Document(s) SARS coronavirus 2 RNA [facility] This lab was ordered by [facility] and reported by [facility]. ID Date Data Source [id number] 03/15/2020 09:39:22 AM EDT [facility] PCName: Faby NobleDOB: 1975Provider: Chika Mast: 03/14/2020 Chief ComplaintChronic cervical pain. Chief Complaint 2Chronic lumbar pain. [place]YSW VAS PAIN Established: MA completing section: hpowell History of Present IllnessRecent test/procedures: Patient was asked and denies having any tests since their last visit. Patient was asked and denies being seen by any Physicians since their last visit. The patient was last seen by a [facility] provider on 01/03/2020. At [...] TABLET DAILY WITH FOOD. MDD:1;Therapy: 29Sep2019 to (Evaluate:[id number]) Requested for: 29Nov2019; LastRx:29Nov2019 Ordered Past Medical [...] use Occasional alcohol use VitalsVital Signs Recorded: [id number] 10:47AM Height: 5 ft 1 inWeight: 158 [...] flexion, 5/5 extension- Shoulder: 5/5 Abduction- Hand [place] Opener 5/5 Left Upper Extremity Motor:- Wrist: 5/5 flexion, 5/5 extension- Elbow: 5/5 flexion, 5/5 extension- Shoulder: 5/5 Abduction- Hand [place] Opener 5/5 Neurological:Sensation Upper:Left Upper: normalRight Upper: normal. Skin: Warm, dry, acyanotic. Psychological: Alert and oriented to person, place and time. Mood and affect are pleasant and appropriate. Judgement intact. Insight normal without delusions or hallucinations. Denies suicidal/homicidal ideation. Assessment 1. Cervical radiculopathy (723.4) (M54.12) 2. Chronic low back pain (724.2,338.29) (M54.5,G89.29) Plan 1. MRI ([facility]) Referral Treatment Treatment Status: Hold For - Scheduling Requested for: [id number] Patient have SCS...? : NoFront Desk Reminder: [...] results and discuss treatment options going forward. Applico DisclaimerNYSWC Applico Disclaimer: This document was dictated and electronically signed using Intucell Speaking software. A reasonable attempt at proof reading has been made to minimize errors. Please call with any questions. Signatures Electronically signed by : Jay Mast NP; Mar 14 2020 11:07AM EST (Author) Electronically signed by : Zac Nunn MD; Mar 15 2020 9:39AM EST Name Value Range Interpretation Code Description Data Hazel rce(s) Supporting Document(s) ID Date Data Source [id number] 12/28/2019 01:25:18 PM EDT [facility] PCName: Faby franz VossDOB: 1975Provider: Chika Mast: 11/29/2019 Chief ComplaintBack and leg pain Chief Complaint 2NYSW VAS PAIN Established: TIMOTHY completing section: [facility] Telemedicine - Explanation to patient regarding Telemedicine: Explanation to patient regarding telemedicine Patient initiated contact with the office via phone call or via patient portal to schedule a Telehealth visit. I explained to the patient that telemedicine is the practice of using telecommunications technology to evaluate, diagnose and care for patients at a distance. Telehealth visits are a way for [facility] to continue providing quality care to our patients while still practicing mandated social distancing, in emergency effort to keep both the patient and myself safe throughout the COVID-19 pandemic. During this emergent initiation of Telemedicine, the office of civil rights has loosened the laws on HIPAA compliance to accommodate the continuation of medical care across the [place] thr oughout the COVID-19 pandemic. [facility] Telemedicine - TV Consent Established: Telehealth Consent Lindsay Noble is an established patient of [facility], and was made aware co-pays and co-insurance are waived due to COVID-19, as well as, the potential privacy risks with the use of third-republican applications as a result of this Telehealth [...] TABLET DAILY WITH FOOD. MDD:1;Therapy: 29Sep2019 to (Evaluate:[id number]) Requested for: 29Sep2019; LastRx:29Sep2019 Ordered Past Medical [...] WITH FOOD. MDD:1 2. Block (Thoracic/Lumbar Interlaminar) ([facility]) Referral Procedure Procedure Status: Complete Done: [id number] Type : Private (No Auth needed)Is patient currently on a biologic? : NoIs your patient taking aspirin for cardiac or stroke prevention...? : NoIs patient taking Aspirin > 81 mg...? : NoIs your patient on an Anticoagulant -OR- have Coagulopathy...? 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 : NoFront Desk Reminder: [...] is not an urgent request 3. EMG ([facility]) Referral Diagnostic Diagnostic Status: Complete Done: [id number] - Schedule FUP : N/A - already [...] was conducted over a video conference (via [employer]) call due to the coronavirus pandemic. The [...] will follow up 4 weeks post block. Applico DisclaimerNY[facility] Applico Disclaimer: This document was dictated and electronically signed using Applico Naturally Speaking software. A reasonable attempt at proof reading has been made to minimize errors. Please call with any questions. Signatures Electronically signed by : Jay Mast NP; Nov 29 2019 1:57PM EST (Author) Electronically signed by : Aravind Gramajo MD; Nov 29 2019 3:07PM EST Electronically signed by : Jya Mast NP; Dec 27 2019 6:15PM EST (Author) Electronically signed by : Aravind Gramajo MD; Dec 28 2019 1:25PM EST Name Value Range Interpretation Code Description Data Hazel rce(s) Supporting Document(s) ID Date Data Source [id number] 09/29/2019 02:45:38 PM EST [facility] PCName: Faby ComerB: 1975Provider: Chika Mast: 09/29/2019 Chief ComplaintBack and leg pain Chief Complaint 2NYSW VAS PAIN Established: MA completing section: Vcrouse [employer]TER [employer]LLER History of Present IllnessRecent test/procedures: Patient was [...] Status: Hold For - Scheduling Requested for: [id number] Appointment for 15 or 30 minutes : [...] in 2 months time, sooner if needed. Applico DisclaimerNYSWC Applico Disclaimer: This document was dictated and electronically signed using Int[employer]ell Speaking software. A reasonable attempt at proof reading has been made to minimize errors. Please call with any questions. Signatures Electronically signed by : Jay Mast NP; Sep 29 2019 1:53PM EST (Author) Electronically signed by : Kwabena Leach MD; Sep 29 2019 2:45PM EST Name Value Range Interpretation Code Description Data Hazel rce(s) Supporting Document(s) Procedure Social History Code Duration Value Status Description Data Source(s ) Smoking 10/02/2020 12:00:00 AM EST Patient has never smoked co mpleted Patient has never smoked [facility] ([facility] Smoking 04/28/2020 12:00:00 AM EDT Patient has never smoked co mpleted Patient has never smoked [facility] ([facility], ) Smoking 04/21/2020 12:00:00 AM EDT Never Smoked Cigarettes com pleted Never Smoked Cigarettes [facility] ([facility]) Vital Signs ID Date Data Source UNK Name Value Range Interpretation Code Description Data Source(s) [place] body weight 110 [lb_av] 110 [lb_av] [facility] T ([facility], ) Body height 62 [in_i] 62 [in_i] [facility] ([facility]) 5'2" Body temperature 96.6 [degF] 96.6 [degF] [facility] ([facility]) Respiratory rate 16 /min 16 /min [facility] ( [facility]) Heart rate 84 /min 84 /min [facility] ([facility]) Diastolic blood pressure 76 mm[Hg] 76 mm[Hg[facility] Systolic blood pressure 116 mm[Hg] 116 mm[Hg] [facility] ([facility]) Body mass index (BMI) [Ratio] 29.5 kg/m2 29.5 k g/m2 [facility] [place] body weight 105 [lb_av] 105 [lb_av] [facility] T ([facility] Oxygen saturation in Arterial blood by Pulse oximetry 99 % 99 % [facility] ([facility] Body weight 160.25 [lb_av] 160.25 [lb_av] [facility] T ([facility] Body height 61.75 [in_i] 61.75 [in_i] [facility] ([facility] 5'1.75" Respiratory rate 16 [...] k g/m2 [facility] ([facility] [place] body weight 105 [lb_av] 105 [lb_av] [facility] T ([facility] Oxygen saturation in Arterial blood by Pulse oximetry 98 % 98 % [facility] ([facility] Body weight 162.38 [lb_av] 162.38 [lb_av] [facility] T ([facility] Body height 61.75 [in_i] 61.75 [in_i] [facility] ([facility] 5'1.75" Respiratory rate 16 /min 16 /min [facility] ( [facility] Body temperature 98.1 [degF] 98.1 [degF] [facility] ([facility] Heart rate 97 /min 97 /min [facility] ([facility] Diastolic blood pressure 78 mm[Hg] 78 mm[Hg] [facility] ([facility] Systolic blood pressure 127 mm[Hg] 127 mm[Hg] M EDENT ([facility] Body surface area Derived from formula 1.73 m2 1.73 m2 [facility] ([facility], ) Body weight 72.122 kg 72.122 kg [facility] ([facility], ) [place] body weight 110 [lb_av] 110 [lb_av] MED[facility] T ([facility]) Body mass index (BMI) [Ratio] 29.1 kg/m2 29.1 k g/m2 [facility] ([facility], ) Body weight 159.00 [lb_av] 159.00 [lb_av] MED[facility] T ([facility], ) Body height 62 [in_i] 62 [in_i] [facility] ([facility]) 5'2" Body temperature 97.9 [degF] 97.9 [degF] [facility] Respiratory rate 16 /min 16 /min [facility] Heart rate 78 /min 78 /min [facility] Diastolic blood pressure 82 mm[Hg] 82 mm[Hg] [facility] ([facility]) Systolic blood pressure 118 mm[Hg] 118 mm[Hg] M EDENT ([facility]) Oxygen saturation in Arterial blood by Pulse oximetry 97 % 97 % [facility] ([facility]) Body mass index (BMI) [Ratio] 29.5 kg/m2 29.5 k g/m2 [facility] ([facility]) Body weight 160.00 [lb_av] 160.00 [lb_av] MED[facility] T ([facility]) Body height 61.7 [in_i] 61.7 [in_i] [facility] ([facility]) 5'1.70" Heart rate 76 /min 76 /min [facility] Diastolic blood pressure 70 mm[Hg] 70 mm[Hg] [facility] ([facility]) Systolic blood pressure 124 mm[Hg] 124 mm[Hg] M EDENT ([facility]) Body mass index (BMI) [Ratio] 28.2 kg/m2 28.2 k g/m2 [facility] ([facility] [place] body weight 105 [lb_av] 105 [lb_av] MED[facility] T ([facility] Oxygen saturation in Arterial blood by Pulse oximetry 98 % 98 % [facility] ([facility] Body weight 152.75 [lb_av] 152.75 [lb_av] MED[facility] T ([facility] Body height 61.75 [in_i] 61.75 [in_i] [facility] ([facility] 5'1.75" Respiratory rate 16 [...] Systolic blood pressure 142 mm[Hg] 142 mm[Hg] [facility] ([facility] Diastolic blood pressure 74 mm[Hg] 74 mm[Hg] eCW1 ([facility]) Systolic blood pressure 114 mm[Hg] 114 mm[Hg] e CW1 ([facility]) Body mass index (BMI) [Ratio] 29.15 kg/m2 29.15 kg/m2 W1 ([facility]) Body height [in_us] W1 ([facility]) Body weight Measured 159.4 [lb_av] 159.4 [lb_av ] W1 ([facility]) Body weight 71.442 kg 71.442 kg [facility] ([facility], ) Body mass index (BMI) [Ratio] 28.8 kg/m2 28.8 k g/m2 [facility] ([facility]) Body weight 157.50 [lb_av] 157.50 [lb_av] MEDEN T ([facility], ) Body height 62 [in_i] 62 [in_i] [facility] ([facility], ) 5'2" Diastolic blood pressure 76 mm[Hg] 76 mm[Hg] [facility] ([facility]) Systolic blood pressure 122 mm[Hg] 122 mm[Hg] Pranav WANG ([facility])
== END 2020-10-13 13:05 | disposition home or self-care (01) ==
LOC: M SDC 06:16 → M MS5PR 06:17 → M SDC 13:29 → M MS5PR 13:29 → M SDC 10-13 13:05 → M MS5PR 10-13 13:05
PROVIDERS: ADMIT Plastic Surgery Surgery of the Hand; ATTEND Plastic Surgery Surgery of the Hand
DX: N62 Hypertrophy of breast (principal); K21.9 Gastro-esophageal reflux disease without esophagitis; K58.8 Other irritable bowel syndrome; Z88.0 Allergy status to penicillin; Z79.899 Other long term (current) drug therapy
CPT/HCPCS: 19318; 88305; 96361; 96365; 96366; C9290; J0131; J0690; J1100; J1170; J1644; J2250; J2405; J2765; J3010

== ENCOUNTER 2021-05-07 10:10 | Emergency (ER) | payer OTHER ==
[~2021-05-07] VITALS: Ht 157.5 cm; Wt 73.4 kg
[~2021-05-07 10:10] MED LIST changes: -HEPARIN SOD (PORCINE) 5000UNITS/ML 1ML VIAL/SYRINGE SQ ONE; -LR 1,000 ML IV ONE; -ceFAZolin SOD 1 GM in D5W MINI-BAG PLUS 50 ML IV ONE
[2021-05-07] MEDS ORDERED: PANT20TA6 (10:29)
--- NOTE | 2021-05-07 10:46 | REP ---
INDICATION: right hand pain. COMPARISON: None. TECHNIQUE: Four views of the right hand were obtained. FINDINGS: There is no evidence of fracture or dislocation. There is no significant arthropathy. There are no soft tissue abnormalities. IMPRESSION: Normal right hand. <Electronically signed by Nabil Pena > 05/07/21 1047
[2021-05-07 12:09] VITALS: BP 106/78
== END 2021-05-07 12:35 | disposition home or self-care (01) ==
LOC: M ED 10:10
DX: S63.621A Sprain of interphalangeal joint of right thumb, initial encounter (principal); Y92.9 Unspecified place or not applicable; Y93.9 Activity, unspecified; Y99.9 Unspecified external cause status

== ENCOUNTER → 2023-02-26 | Outpatient (CLI) | payer OTHER ==
[~2023-02-26] MED LIST changes: +PANT20TA6
== END ==
LOC: M RAD 06:36
PROVIDERS: ATTEND Physician Assistant Medical
DX: R07.0 Pain in throat (principal)

== ENCOUNTER → 2023-07-01 | Outpatient (CLI) | payer OTHER ==
[2023-07-01 13:36] LABS: BASO % 0.5 % (0.0-1.0); EOS # 0.1 10^3/uL (0.0-0.5); EOS % 1.5 % (0.0-3.0); HEMATOCRIT 41.5 % (36.0-47.0); HEMOGLOBIN 13.8 g/dl (12.0-15.5); LYMPH # 1.2 10^3/uL (1.5-5.0); LYMPH % 16.8 % (24.0-44.0); MEAN CORPUSCULAR HEMOGLOBIN 30.4 pg (27.0-33.0); MEAN CORPUSCULAR HGB CONC 33.3 g/dl (32.0-36.5); MEAN CORPUSCULAR VOLUME 91.4 fl (80.0-96.0); MONO # 0.8 10^3/uL (0.0-0.8); MONO % 10.8 % (2.0-8.0); NEUTROPHILS # 5.2 10^3/uL (1.5-8.5); NEUTROPHILS % 70.1 % (36.0-66.0); PLATELET COUNT, AUTOMATED 186 10^3/uL (150-450); RED BLOOD COUNT 4.54 10^6/uL (4.00-5.40); WHITE BLOOD COUNT 7.4 10^3/uL (4.0-10.0)
[2023-07-01 14:02] LABS: ALBUMIN 3.5 G/DL (3.2-5.2); ALKALINE PHOSPHATASE 74 U/L (46-116); ALT/SGPT 14 U/L (7.0-40); AST/SGOT 15 U/L (<34); BILIRUBIN,TOTAL 0.4 MG/DL (0.3-1.2); BLOOD UREA NITROGEN 7 MG/DL (9-23); CALCIUM LEVEL 9.1 MG/DL (8.5-10.1); CARBON DIOXIDE LEVEL 28 MMOL/L (20-31); CHLORIDE LEVEL 101 MMOL/L (98-107); CREATININE FOR GFR 0.65 MG/DL (0.55-1.30); GLOMERULAR FILTRATION RATE > 60.0 (>58); GLUCOSE, FASTING 96 MG/DL (60-100); POTASSIUM SERUM 4.3 MMOL/L (3.5-5.1); SODIUM LEVEL 136 MMOL/L (136-145); THYROID STIMULATING HORMONE 0.992 uIU/ML (0.55-4.78); TOTAL PROTEIN 7.3 G/DL (5.7-8.2)
[2023-07-01 14:03] LABS: FREE T4 0.87 NG/DL (0.89-1.76)
[2023-07-02 12:10] LABS: TISSUE TRANSGLUTAMINASE IgA <2 U/mL (0-3); TISSUE TRANSGLUTAMINASE IgG <2 U/mL (0-5)
== END ==
LOC: M PLALAB 09:22
PROVIDERS: ATTEND Nurse Practitioner Family
DX: R10.30 Lower abdominal pain, unspecified (principal); R31.9 Hematuria, unspecified; R06.02 Shortness of breath

== ENCOUNTER → 2023-07-04 | Outpatient (CLI) | payer OTHER ==
[~2023-07-04] MED LIST changes: +GASTROGRAFIN SOLUTION 30ML As Ordered ONE; +ISOVUE-370 76% 100ML VIAL As Ordered ONE
== END ==
LOC: M RAD 12:58
PROVIDERS: ATTEND Nurse Practitioner Family
DX: R10.2 Pelvic and perineal pain (principal)
CPT/HCPCS: 74177; Q9963; Q9967

== ENCOUNTER → 2023-07-29 | Outpatient (CLI) | payer OTHER ==
[~2023-07-29] MED LIST changes: -GASTROGRAFIN SOLUTION 30ML As Ordered ONE; -ISOVUE-370 76% 100ML VIAL As Ordered ONE
== END ==
LOC: M PLAIMG 08:48
PROVIDERS: ATTEND Nurse Practitioner Family
DX: J18.9 Pneumonia, unspecified organism (principal)

== ENCOUNTER → 2023-09-18 | Outpatient (CLI) | payer OTHER ==
[2023-09-18 10:05] LABS: THYROID STIMULATING HORMONE 0.832 uIU/ML (0.55-4.78)
[2023-09-18 10:06] LABS: FREE T4 1.02 NG/DL (0.89-1.76)
== END ==
LOC: M PLALAB 08:14
PROVIDERS: ATTEND Nurse Practitioner Family
DX: E03.9 Hypothyroidism, unspecified (principal)

== ENCOUNTER → 2023-11-06 | Outpatient (CLI) | payer OTHER | LOC: M PLAIMG 08:13 | PROVIDERS: ATTEND Nurse Practitioner Family | DX: M54.2 Cervicalgia (principal) ==

== ENCOUNTER → 2024-06-09 | Outpatient (REF) | payer BC | LOC: M PLALAB 15:34 | PROVIDERS: ATTEND Obstetrics & Gynecology | DX: R30.0 Dysuria (principal) ==

== ENCOUNTER → 2024-09-07 | Outpatient (CLI) | payer BC ==
[2024-09-07 11:23] LABS: BASO % 0.5 % (0.0-1.0); EOS # 0.3 10^3/uL (0.0-0.5); EOS % 3.5 % (0.0-3.0); HEMOGLOBIN 13.6 g/dl (12.0-15.5); LYMPH # 1.7 10^3/uL (1.5-5.0); LYMPH % 23.3 % (24.0-44.0); MEAN CORPUSCULAR HEMOGLOBIN 30.5 pg (27.0-33.0); MEAN CORPUSCULAR HGB CONC 33.2 g/dl (32.0-36.5); MEAN CORPUSCULAR VOLUME 91.9 fl (80.0-96.0); MONO # 0.7 10^3/uL (0.0-0.8); NEUTROPHILS # 4.7 10^3/uL (1.5-8.5); NEUTROPHILS % 63.6 % (36.0-66.0); PLATELET COUNT, AUTOMATED 181 10^3/uL (150-450); RED BLOOD COUNT 4.46 10^6/uL (4.00-5.40); WHITE BLOOD COUNT 7.4 10^3/uL (4.0-10.0)
[2024-09-07 11:33] LABS: URIC ACID 5.2 MG/DL (3.1-7.8)
[2024-09-07 11:36] LABS: ALBUMIN 3.7 G/DL (3.2-5.2); ALKALINE PHOSPHATASE 59 U/L (35-104); ALT/SGPT 17 U/L (7.0-40); AST/SGOT 11 U/L (<34); BILIRUBIN,TOTAL 0.5 MG/DL (0.3-1.2); BLOOD UREA NITROGEN 12 MG/DL (9-23); C REACTIVE PROTEIN QUANTITATIV < 0.50 MG/DL (<1.0); CALCIUM LEVEL 9.5 MG/DL (8.5-10.1); CARBON DIOXIDE LEVEL 29 MMOL/L (20-31); CHLORIDE LEVEL 107 MMOL/L (98-107); CREATININE FOR GFR 0.64 MG/DL (0.55-1.30); FREE T4 1.09 NG/DL (0.89-1.76); GLOMERULAR FILTRATION RATE > 60.0 (>58); GLUCOSE, FASTING 85 MG/DL (60-100); POTASSIUM SERUM 4.6 MMOL/L (3.5-5.1); SODIUM LEVEL 141 MMOL/L (136-145); THYROID STIMULATING HORMONE 0.885 uIU/ML (0.55-4.78)
[2024-09-07 11:37] LABS: FOLLICLE STIMULATING HORMONE 9.5 mIU/ML
[2024-09-07 11:38] LABS: ESTRADIOL 79.5 PG/ML; LUTEINIZING HORMONE 13.7 mIU/ML; PROLACTIN 5.47 NG/ML
[2024-09-07 11:48] LABS: ERYTHROCYTE SEDIMENTATION RATE 42 mm/hr (0-20)
[2024-09-07 12:00] LABS: RHEUMATOID FACTOR QUANT 5.3 IU/ML (<14)
[2024-09-08 15:18] LABS: ANA SCREEN, IFA NEGATIVE (NEGATIVE)
[2024-09-08 17:57] LABS: SSA SJOGRENS A <1.0 NEG AI (<1.0 NEG); SSB SJOGRENS B <1.0 NEG AI (<1.0 NEG)
== END ==
LOC: M PLALAB 07:39
PROVIDERS: ATTEND Nurse Practitioner Family
DX: M12.9 Arthropathy, unspecified (principal); N95.1 Menopausal and female climacteric states

== ENCOUNTER 2025-03-09 08:03 | Day surgery (SDC) | payer BC ==
[~2025-03-09] VITALS: Ht 157.5 cm; Wt 78.2 kg
[~2025-03-09 08:03] MED LIST changes: +ASPI-226 PO; +ESTR0.5T3 PO; +LEVO25TA5 PO
[2025-03-09] MEDS ORDERED: PANT40TA29 PO (08:15)
[2025-03-09] MEDS ORDERED: LIDOCAINE 2% 100 MG/5 ML SDV (FOR ANES.) As Ordered ONE (08:54)
[2025-03-09] MEDS ORDERED: ONDANSETRON 4MG 2ML VIAL As Ordered ONE (09:36)
[2025-03-09 09:46] VITALS: TEMP 97.4
[2025-03-09 10:03] VITALS: BP 104/59; O2SAT 97
== END 2025-03-09 10:13 | disposition home or self-care (01) ==
LOC: M OPP 08:03
PROVIDERS: ATTEND Surgery
DX: Z12.11 Encounter for screening for malignant neoplasm of colon (principal); K64.4 Residual hemorrhoidal skin tags; Z15.09 Genetic susceptibility to other malignant neoplasm; K31.89 Other diseases of stomach and duodenum; R10.13 Epigastric pain; Z91.048 Other nonmedicinal substance allergy status; Z79.82 Long term (current) use of aspirin; Z79.899 Other long term (current) drug therapy
CPT/HCPCS: 43239; 45378; 88305; J2405; J3010

== ENCOUNTER → 2025-04-18 | Outpatient (CLI) | payer BC ==
[~2025-04-18] MED LIST changes: +ISOVUE-370 76% 100 ML VIAL ONE; +PANT40TA29 PO
== END ==
LOC: M PLAIMG 12:56
PROVIDERS: ATTEND Surgery
DX: R10.84 Generalized abdominal pain (principal)

== ENCOUNTER → 2025-07-13 | Outpatient (CLI) | payer BC ==
[~2025-07-13] MED LIST changes: -ISOVUE-370 76% 100 ML VIAL ONE
[2025-07-13 17:37] LABS: BASO # 0.1 10^3/uL (0.0-0.2); BASO % 0.5 % (0.0-1.0); EOS # 0.3 10^3/uL (0.0-0.5); EOS % 2.6 % (0.0-3.0); LYMPH # 2.6 10^3/uL (1.5-5.0); LYMPH % 25.3 % (24.0-44.0); MONO # 0.7 10^3/uL (0.0-0.8); MONO % 7.3 % (2.0-8.0); NEUTROPHILS # 6.4 10^3/uL (1.5-8.5); NEUTROPHILS % 63.9 % (36.0-66.0); PLATELET COUNT, AUTOMATED 207 10^3/uL (150-450)
[2025-07-13 17:57] LABS: IRON (FE) 73.0 UG/DL (50-170); PERCENT SATURATION 23.3 % (13.2-45.0)
[2025-07-13 17:58] LABS: ALT/SGPT 15.0 U/L (7.0-40); AST/SGOT 15.0 U/L (<34); CALCIUM LEVEL 9.2 MG/DL (8.5-10.1); CARBON DIOXIDE LEVEL 29.0 MMOL/L (20-31); CHLORIDE LEVEL 104.0 MMOL/L (98-107); CHOLESTEROL LEVEL 206.0 MG/DL (<200); CHOLESTEROL RISK RATIO 3.67 (<5); CREATININE FOR GFR 0.86 MG/DL (0.55-1.30); GLOMERULAR FILTRATION RATE 83.3 (>58); LDL CHOLESTEROL 116.0 MG/DL (<100); MAGNESIUM LEVEL 2.0 MG/DL (1.8-2.4); NON-HDL-C 150.0 MG/DL; POTASSIUM SERUM 4.2 MMOL/L (3.5-5.1); SODIUM LEVEL 141.0 MMOL/L (136-145); TRIGLYCERIDES LEVEL 170.0 MG/DL (<150)
[2025-07-13 18:00] LABS: FREE T4 1.12 NG/DL (0.89-1.76)
== END ==
LOC: M PLALAB 15:47
PROVIDERS: ATTEND Nurse Practitioner Family
DX: R00.2 Palpitations (principal)

== ENCOUNTER → 2025-07-18 | Outpatient (CLI) | payer BC | LOC: M EKG 08:01 | PROVIDERS: ATTEND Nurse Practitioner Family | DX: R00.2 Palpitations (principal) ==